=== PATIENT | female | born 1940 | race Caucasian/White ===

== ENCOUNTER 2016-08-03 02:00 | Inpatient (IN) | payer MEDICARE, OTHER ==
[~2016-08-03] VITALS: Ht 160 cm; Wt 90.4 kg
[2016-08-03] VITALS (38 sets, daily range): BP systolic 81–107; BP diastolic 41–60; PULSE 78–118; RESP 17–31; TEMP 97.9; Ht 160 cm; Wt 90.4 kg
[2016-08-03] MEDS ORDERED: ETOMIDATE 20 MG INJ IV STA (02:19)
[2016-08-03] MEDS ORDERED: SUCCINYLCHOLINE CHLORIDE 100 MG/5 ML SYG IV STA (02:19)
--- NOTE | 2016-08-03 02:23 | RADRPT ---
PROCEDURE: CT brain without contrast. CLINICAL INDICATION: Stroke. TECHNIQUE: CT scan of the brain was performed on a multi-detector high-resolution CT scanner. Co ntiguous axial images were obtained from the skull base to the vertex without intravenous contrast. Coronal and sagittal reformatted images were also obtained. Images were reviewed on the PACS works tation. One or more of the following dose reduction techniques were used: - Automated exposure control. - Adjustment of the mA and/or kV according to patient size. - Use of iterative reconstruction technique. Exam CTD/vol = 40.25 mGy. Total exam DLP = 1399.22 mGy-cm. COMPARISON: None. FINDINGS: The ventricles and cortical sulci are within normal limits for patient's age. There are no areas of abnormal attenuation within the brain parenchyma. There is no mass effect or midline shift. There is no intracranial hemorrhage or abnormal extra-axial collection. There are atherosclerotic calcificat ions within bilateral distal internal carotid arteries. The calvarium is intact. There is no evidence of fracture. Visualized paranasal sinuses and mastoid air cells are clear. IMPRESSION: No acute intracranial abnormality identified. Cerebral atherosclerosis. A call report was made to need the charge nurse (Racheal) at 02:20 a.m. .Scott Osborne MD, Date Time Electronically viewed and signed by .Scott Osborne MD, on 08/03/2016 02:23 .T/
[2016-08-03] MEDS ORDERED: PROPOFOL 100 ML IV ONE (02:30)
[2016-08-03 02:36] LABS: BASOPHIL # 0.1 10^3/ul (0.0-0.1); BASOPHILS % 0.6 % (0.0-2.0); CONDITION 1; EOSINOPHILS # 0.6 10^3/ul (0.0-0.5); EOSINOPHILS % 3.6 % (0.0-7.0); HEMATOCRIT 39.9 % (37.0-47.0); HEMOGLOBIN 12.9 g/dl (12.0-16.0); LH ANALYZER COMMENTS 1; LYMPHOCYTES # 7.2 10^3/ul (0.8-2.9); LYMPHOCYTES % 44.3 % (15.0-51.0); MEAN CORPUSCULAR HEMOGLOBIN 29.9 pg (29.0-33.0); MEAN CORPUSCULAR HGB CONC 32.4 g/dl (32.0-37.0); MEAN CORPUSCULAR VOLUME 92.4 fl (82.0-101.0); MEAN PLATELET VOLUME 11.9 fl (7.4-10.4); MONOCYTE # 0.9 10^3/ul (0.3-0.9); MONOCYTES % 5.4 % (0.0-11.0); NEUTROPHIL # 7.5 10^3/ul (1.6-7.5); NEUTROPHILS % 46.1 % (39.0-77.0); PLATELET COUNT 280 10^3/UL (140-440); RED BLOOD COUNT 4.32 10^6/ul (4.20-5.40); RED CELL DISTRIBUTION WIDTH 15.5 % (11.5-14.5); SUSPECT 1; UNCORRECTED WBC 16.3 10^3/ul (4.8-10.8); WHITE BLOOD COUNT 16.3 10^3/ul (4.8-10.8)
[2016-08-03 02:46] LABS: ALBUMIN 4.3 g/dl (3.3-4.9)
[2016-08-03 02:47] LABS: INR 1.13; POTASSIUM 4.8 mmol/L (3.5-5.1); PROTIME 14.5 Sec (12.2-14.2); PT RATIO 1.1
[2016-08-03 02:48] LABS: PARTIAL THROMBOPLASTIN TIME 29.1 Sec (25.0-35.0)
--- NOTE | 2016-08-03 02:48 | RADRPT ---
PROCEDURE: XR Chest. CLINICAL INDICATION: Possible Stroke TECHNIQUE: Single frontal chest x-ray. COMPARISON: None available. FINDINGS: The tip of the endotracheal tube is approximately 1.4 cm above the delvis. There is enlargement of the cardiac silhouette. Diffuse bilateral increased lung densities are seen most suggestive of pul monary edema with interstitial lung densities seen throughout the right lung and in the left lower l teresa with air space lung densities throughout the lungs greatest in the left upper lobe, right upper and lower lung. Degenerative changes in thoracic spine and shoulders. ECG lead projected over the c hest. Calcification in the aortic arch. IMPRESSION: Tip of endotracheal tube approximate 1.4 cm above the delvis. Findings consistent with congestive h eart failure and pulmonary edema as noted above. Please see above. RPTAT: HJES .Osmany Roque MD, MD Date Time Electronically viewed and signed by .Osmany Rqoue MD, MD on 08/03/2016 02:47 .S/
[2016-08-03 02:49] LABS: ALBUMIN/GLOBULIN RATIO 1.02; BILIRUBIN,INDIRECT 0.3 mg/dl (0-1.1); BILIRUBIN,TOTAL 0.3 mg/dl (0.2-1.3); CREATININE 1.89 mg/dl (0.44-1.00); TOTAL PROTEIN 8.5 g/dl (6.1-8.1)
[2016-08-03 02:50] LABS: CALCIUM 10.1 mg/dl (8.4-10.2)
[2016-08-03 03:01] LABS: TROPONIN-I 0.128 ng/ml (0.00-0.12)
--- NOTE | 2016-08-03 03:41 | ERA ---
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 Last known well time is unknown exactly but was around 9 PM. Upon arrival patient is alert but not oriented. She does respond to verbal stimuli. Moving all 4 extremities non-focally. Code stroke was called given the fact the patient was found down. However was later canceled. Patient was sent to CAT scan and came back patient was found to be more progressed when he is short of breath of breath with low lessening O2 saturation. Decision was made to intubate patient. ROS All systems reviewed and are negative except as per history of present illness. Allergies Allergies: Coded Allergies: No Known Drug Allergies (Verified Allergy, Unknown, 08/03/16) Physical Exam Vitals Vital Signs Date Time Temp Pulse Resp B/P Pulse Ox O2 Delivery O2 Flow Rate FiO2 08/03/16 03:23 61 16 97/55 95 Mechanical Ventilator 08/03/16 02:39 72 16 152/82 99 Mechanical Ventilator 08/03/16 02:07 96.8 111 22 185/87 96 Physical Exam Const: [] Head: Atraumatic Eyes: Normal Conjunctiva ENT: Normal External Ears, Nose and Mouth. Neck: Full range of motion..~ No meningismus. Resp: Clear to auscultation bilaterally Cardio: Regular rate and rhythm, no murmurs Abd: Soft, non tender, non distended. Normal bowel sounds Skin: No petechiae or rashes Back: No midline or flank tenderness Ext: No cyanosis, or edema Neur: Awake and alert Psych: Normal Mood and Affect Result Diagram: 08/03/1622208/03/163 Results 24 hrs Laboratory Tests Test 08/03/16 02:07 08/03/16 02:23 Bedside Glucose 135mg/dL Activated Partial Thromboplast Time 29.1Sec Alanine Aminotransferase (ALT/SGPT) 29IU/L Albumin 4.3g/dl Albumin/Globulin Ratio 1.02 Alkaline Phosphatase 102IU/L Anion Gap 23 Aspartate Amino Transf (AST/SGOT) 27IU/L B-Type Natriuretic Peptide 8550PG/ML Basophils # 0.110^3/ul Basophils % 0.6% Blood Morphology Comment Blood Urea Nitrogen 49mg/dl Calcium Level 10.1mg/dl Carbon Dioxide Level 16mmol/L Chloride Level 110mmol/L Creatinine 1.89mg/dl Direct Bilirubin 0.00mg/dl Eosinophils # 0.610^3/ul Eosinophils % 3.6% Globulin 4.20g/dl Glucose Level 205mg/dl Hematocrit 39.9% Hemoglobin 12.9g/dl Hemoglobin A1c 6.5% INR International Normalized Ratio 1.13 Indirect Bilirubin 0.3mg/dl Lymphocytes # 7.210^3/ul Lymphocytes % 44.3% Mean Corpuscular Hemoglobin 29.9pg Mean Corpuscular Hemoglobin Concent 32.4g/dl Mean Corpuscular Volume 92.4fl Mean Platelet Volume 11.9fl Monocytes # 0.910^3/ul Monocytes % 5.4% Neutrophils # 7.510^3/ul Neutrophils % 46.1% Nucleated Red Blood Cells # 0.010^3/ul Nucleated Red Blood Cells % 0.0/100WBC Platelet Count 47663^3/UL Potassium Level 4.8mmol/L Prothrombin Time 14.5Sec Prothrombin Time Ratio 1.1 Red Blood Count 4.3210^6/ul Red Cell Distribution Width 15.5% Sodium Level 144mmol/L Total Bilirubin 0.3mg/dl Total Protein 8.5g/dl Troponin I 0.128ng/ml White Blood Count 16.310^3/ul Current Medications Medications (Trade) Dose Ordered Sig/Bam Route PRN Reason Start Time Stop Time Status Last Admin Dose Admin Succinylcholine Chloride (Anectine Syringe) 100 mg ONCE STAT IV 08/03/16 02:19 08/03/16 02:20 DC Etomidate 20 mg 20 mg ONCE STAT IV 08/03/16 02:19 08/03/16 02:20 DC Propofol (Diprivan) 100 ml @ 0 mls/hr TITRATE ONCE IV 08/03/16 02:30 08/03/16 02:31 DC 08/03/16 02:55 Procedures/MDM EKG: Rate/Rhythm: Sinus tachycardia QRS, ST, T-waves: [No changes consistent w/ acute ischemia] Impression: [No evidence of ischemia or arrhythmia] Chest X-ray 1V Interpreted by me: Soft Tissue: No acute abnormalities Bones: No acute abnormalities Mediastinum/Cardiac Silhouette/Lungs: ET tube in good position. Increased interstitial fluid markings. Impression: Pulmonary edema CT of the head was read as negative Endotracheal Intubation by me: Pre assessment performed. See preceding note for details. Pre-oxygenation performed with 100% oxygen RSI: Performed w/o complication or hypoxic events. Medications as ordered. Blade: [Mac 4] ET Tube: 7.5 cm Depth: 22 cm at the lip Intubation confirmed by colorimetric CO2, equal breath sounds, quiet over the stomach. Chest X-ray 1V Interpreted by me: 1.5 cm above the delvis ET tube. Normal soft tissue, No pneumothorax. Patient's heart failure symptoms is concerning for acute decompensation and will require inpatient workup and monitoring. Further w/u for ischemia, arrhythmia, PE or dissection will be deferred to the inpatient team. Patient will be admitted to to the intensive care given that she is intubated. She has been given Lasix for diuresis. Anderson catheter has been placed as well. Accepting Care Team: Current data and ongoing care discussed. Time: 3 AM Primary Provider: Hospitalist Consulting: [WILLIE] Outstanding Data: none Critical Care: Time: 57 minutes Treatments/Evaluations: Close monitoring and treatment of unstable vital signs, cardiorespiratory, and neurologic status, while maintaining tight balance of fluid, respiratory, and cardiac interventions. Departure Diagnosis: Primary Impression: Altered level of consciousness Additional Impressions: Altered mental status Qualified Code: R41.82 - Altered mental status, unspecified altered mental status type Pulmonary edema Qualified Code: J81.0 - Acute pulmonary edema Non-STEMI (non-ST elevated myocardial infarction) Respiratory failure Qualified Code: J96.01 - Acute respiratory failure with hypoxia Condition: Critical JIN WARNER Aug 03, 2016 03:41
[2016-08-03 03:55] LABS: AADO2 Arterial 598.3 mmHg (7.0-24.0); Allen Test ACCEPTAB; Arterial Base Excess -13.6 mmol/L (-3.0-3); Arterial COHb 0.3 % (0.0-3.0); Arterial Fraction of Oxyhgb 92.8 % (93.0-99.0); Arterial HCO3 12.9 mmol/L (22.0-26.0); Arterial MetHb 0.3 % (0.0-1.5); MODE VENT - AC/VC+
[2016-08-03] MEDS ORDERED: DEXMEDETOMIDINE HCL 200 MCG in SOD CHLORIDE 0.9% 48 ML IV SCH (04:00)
--- NOTE | 2016-08-03 04:28 | HP ---
Date/Time of Note Date/Time of Note DATE: 08/03/16 TIME: 04:20 Assessment/Plan VTE Prophylaxis VTE Prophylaxis Intervention: heparin Lines/Catheters IV Catheter Type (from Nrs): Saline Lock Assessment/Plan Assessment/Plan PROBLEMS: 1. Acute hypoxemic resp failure currently vent dependent 2/2 #2 2. Severe Acute CHF with pulmonary edema * Impending shock, ?cardiogenic 3. NSTEMI 4. ARF r/o underlying CKD 5. Anion gap metabolic acidosis / #4 6. DM 2: uncontrolled 7. SIRS vs Sepsis from probable underlying Pneumonia 8. Acute Encephalopathy R/o CVA 9. HTN: * Patient came in uncontrolled > borderline hypotensive PLAN: ICU admit and supportive care Continue ventilator support and sedation for comfort / Pulm consult Commence diuresis if BP tolerates / may need pressor support Empirically start heparin drip / complete ACS r/ o / 2D echo / Cardiology consult SSI with novolog for now, may transition to insulin drip if tighter control is needed Begin empiric broad spectrum abx for now / barger culture / adjust abx based on cultures and clinical course Patient will need MRI brain to confirm presence or absence of CVA once more clinically stable Close monitoring with serial labs and blood pressure monitoring / intervene as indicated Nephrology consult for renal failure and need for diuresis PROPHYLAXIS: Heparin / Pepcid Prognosis: Guarded CRITICAL CARE TIME: >35 mins of which more than half was spent at the bedside and during counselling HPI/ROS Admit Date/Time Admit Date/Time 08/03/15 Hx of Present Illness PRESENTING COMPLAINT: ALOC HISTORY OF PRESENTING COMPLAINT: 75 yo F last seen well by son at 2100 yesterday who was found down by her son at about 2am. Was brought into the ER as a code stroke but decompensated acutely and had to be intubated and is now sedated. CXR consistent with pulmonary edema. Patient is being admitted to ICU for further mgt. Patient was hypothermic on arrival, but temperature has improved now. No pressor support at this time. Was said to have had slurred speech and L sided flaccidity when she was found. Per son, patient has been having dyspnea on exertion for the last few days and lethargy. No fever however. She can usually ambulate by her self but had been requiring the use of a walker more. ROS Subjective hx not possible: pt critical status PMH/Family/Social Past Medical History * Iron deficiency * Dyslipidemia Medical History: diabetes, hypertension, hypothyroid Family History Significant Family History: other (unknown) Social History Alcohol Use: none Smoking Status: Never smoker Drug Use: none Exam/Review of Systems Vital Signs Vitals VS - Last 72 Hours, by Label Date Time Temp Pulse Resp B/P Pulse Ox O2 Delivery O2 Flow Rate FiO2 08/03/16 03:58 98.1 64 16 104/50 96 Mechanical Ventilator 08/03/16 03:48 76 16 131/118 96 Mechanical Ventilator 08/03/16 03:23 61 16 97/55 95 Mechanical Ventilator 08/03/16 02:39 72 16 152/82 99 Mechanical Ventilator 08/03/16 02:07 96.8 111 22 185/87 96 Vital Signs Date Time Temp Pulse Resp B/P Pulse Ox O2 Delivery O2 Flow Rate FiO2 08/03/16 03:58 98.1 64 16 104/50 96 Mechanical Ventilator Exam Constitutional: other (obes, patient requiring bilateral restraints), No alert, No oriented Psych: other (unable to assess) Eyes: PERRL ENMT: intubated Neck: jvd Respiratory: crackles/rales, other (good air movement with ventilator assistance) Cardiovascular: irregular rhythm, other (very distant heart sounds), No murmurs/extra sounds Gastrointestinal: bowel sounds, soft Extremities: other (movement noted in both upper extremities), No edema Neurological: other (unable to fully assess), No nl mental status, No nl speech Labs Result Diagram: 08/03/1622208/03/163 Medications Medications Current Medications Dexmedetomidine HCl/Sodium Chloride (Precedex/NS) 50 ml @ 0 mls/hr TITRATE IV ; Start 08/03/16 at 04:00 Procedures Procedures Laboratory Tests Test 08/03/16 02:07 08/03/16 02:23 08/03/16 03:04 Bedside Glucose 135mg/dL Activated Partial Thromboplast Time 29.1Sec Alanine Aminotransferase (ALT/SGPT) 29IU/L Albumin 4.3g/dl Albumin/Globulin Ratio 1.02 Alkaline Phosphatase 102IU/L Anion Gap 23 Aspartate Amino Transf (AST/SGOT) 27IU/L B-Type Natriuretic Peptide 8550PG/ML Basophils # 0.110^3/ul Basophils % 0.6% Blood Morphology Comment Blood Urea Nitrogen 49mg/dl Calcium Level 10.1mg/dl Carbon Dioxide Level 16mmol/L Chloride Level 110mmol/L Creatinine 1.89mg/dl Direct Bilirubin 0.00mg/dl Eosinophils # 0.610^3/ul Eosinophils % 3.6% Globulin 4.20g/dl Glucose Level 205mg/dl Hematocrit 39.9% Hemoglobin 12.9g/dl Hemoglobin A1c 6.5% INR International Normalized Ratio 1.13 Indirect Bilirubin 0.3mg/dl Lymphocytes # 7.210^3/ul Lymphocytes % 44.3% Mean Corpuscular Hemoglobin 29.9pg Mean Corpuscular Hemoglobin Concent 32.4g/dl Mean Corpuscular Volume 92.4fl Mean Platelet Volume 11.9fl Monocytes # 0.910^3/ul Monocytes % 5.4% Neutrophils # 7.510^3/ul Neutrophils % 46.1% Nucleated Red Blood Cells # 0.010^3/ul Nucleated Red Blood Cells % 0.0/100WBC Platelet Count 07310^3/UL Potassium Level 4.8mmol/L Prothrombin Time 14.5Sec Prothrombin Time Ratio 1.1 Red Blood Count 4.3210^6/ul Red Cell Distribution Width 15.5% Sodium Level 144mmol/L Total Bilirubin 0.3mg/dl Total Protein 8.5g/dl Troponin I 0.128ng/ml White Blood Count 16.310^3/ul Arterial Blood HCO3 12.9mmol/L Arterial Blood Base Excess -13.6mmol/L Arterial Blood Oxygen Saturation 93.4mmHG Morteza Test ACCEPTAB Arterial Blood Gas Puncture Site Left Radial Arterial Blood Carboxyhemoglobin 0.3% Arterial Blood Date Drawn 08/03/2016 3:40:45 AM Arterial Blood Methemoglobin 0.3% Arterial Blood pCO2 (Temp correct) 32.1mmhg Arterial Blood pH (Temp corrected) 7.222 Arterial Blood pO2 (Temp corrected) 82.6mmHG Blood Gas A-a O2 Differential 598.3mmHg Blood Gas Actual Respiration Rate 35 Blood Gas Critical Value Read Back Judith WARNER MD Blood Gas Inspiratory Pressure 21.0 Blood Gas Inspiratory Time 0.7 Blood Gas Low PEEP Setting 5.0cmH2O Blood Gas Modality VENT - AC/VC+ Blood Gas Notified Time 08/03/2016 3:54:59 AM Blood Gas Notified Whom AA Blood Gas Respiration Rate 14.0 Blood Gas Specimen Source Blood arterial Blood Gas Temperature 37.0C Blood Gas Tidal Volume 500.0mL FiO2 100.0% Oxyhemoglobin Percent 92.8% Total Hemoglobin 12.0g/dl ER INTERVENTIONS Medications (Trade) Dose Ordered Sig/Bam Route PRN Reason Start Time Stop Time Status Last Admin Dose Admin Succinylcholine Chloride (Anectine Syringe) 100 mg ONCE STAT IV 08/03/16 02:19 08/03/16 02:20 DC Etomidate 20 mg 20 mg ONCE STAT IV 08/03/16 02:19 08/03/16 02:20 DC Propofol 100 ml @ 0 mls/hr TITRATE ONCE IV 08/03/16 02:30 08/03/16 02:31 DC 08/03/16 02:55 2.73 MLS/HR Dexmedetomidine HCl/Sodium Chloride (Precedex/NS) 50 ml @ 0 mls/hr TITRATE IV 08/03/16 04:00 PROCEDURE: CT brain without contrast. CLINICAL INDICATION: Stroke. TECHNIQUE: CT scan of the brain was performed on a multi-detector high- resolution CT scanner. Contiguous axial images were obtained from the skull base to the vertex without intravenous contrast. Coronal and sagittal reformatted images were also obtained. Images were reviewed on the PACS workstation. One or more of the following dose reduction techniques were used: - Automated exposure control. - Adjustment of the mA and/or kV according to patient size. - Use of iterative reconstruction technique. Exam CTD/vol = 40.25 mGy. Total exam DLP = 1399.22 mGy-cm. COMPARISON: None. FINDINGS: The ventricles and cortical sulci are within normal limits for patient's age. There are no areas of abnormal attenuation within the brain parenchyma. There is no mass effect or midline shift. There is no intracranial hemorrhage or abnormal extra-axial collection. There are atherosclerotic calcifications within bilateral distal internal carotid arteries. The calvarium is intact. There is no evidence of fracture. Visualized paranasal sinuses and mastoid air cells are clear. IMPRESSION: No acute intracranial abnormality identified. Cerebral atherosclerosis. A call report was made to need the charge nurse (Racheal) at 02:20 a.m. .Scott Osborne MD, Date Time Electronically viewed and signed by .Scott Osborne MD, MD on 08/03/2016 02:23 .T/ CC: JIN WARNER PROCEDURE: XR Chest. CLINICAL INDICATION: Possible Stroke TECHNIQUE: Single frontal chest x-ray. COMPARISON: None available. FINDINGS: The tip of the endotracheal tube is approximately 1.4 cm above the delvis. There is enlargement of the cardiac silhouette. Diffuse bilateral increased lung densities are seen most suggestive of pulmonary edema with interstitial lung densities seen throughout the right lung and in the left lower lung with air space lung densities throughout the lungs greatest in the left upper lobe, right upper and lower lung. Degenerative changes in thoracic spine and shoulders. ECG lead projected over the chest. Calcification in the aortic arch. IMPRESSION: Tip of endotracheal tube approximate 1.4 cm above the delvis. Findings consistent with congestive heart failure and pulmonary edema as noted above. Please see above. RPTAT: HJES .Osmany Roque MD, MD Date Time Electronically viewed and signed by .Osmany Roque MD, MD on 08/03/2016 02:47 I reviewed EKG Rate: Within normal limits Rhythm: sinus Note: No ST elevation or depressions noted concerning for acute ischemic event. AVIS MENDEZ Aug 03, 2016 04:28
[2016-08-03] MEDS ORDERED: HEPARIN 25000 UNITS/250 ML 250 ML IV SCH (04:30)
[2016-08-03] MEDS ORDERED: HEPARIN 1000 UNITS/ML 10 ML INJ IV ONE (04:30)
[2016-08-03] MEDS ORDERED: HEPARIN 1000 UNITS/ML 10 ML INJ IV PRN (04:30)
[2016-08-03] MEDS ORDERED: ASPIRIN 300 MG SUPP PR ONE (04:30)
[2016-08-03] MEDS ORDERED: SOD CHLORIDE 0.9% 1,000 ML IV SCH (04:30)
[2016-08-03] MEDS ORDERED: MIDAZOLAM (DRIP) 50 mg/50 mL 50 ML IV STA ×2 (05:37→06:40)
[2016-08-03] MEDS ORDERED: FUROSEMIDE 40 MG INJ IV SCH ×2 (06:00→18:00)
[2016-08-03] MEDS: PIPER-TAZO 2.25 GM (PMX) 50 ML IVPB SCH ×3 (06:24→21:39)
[2016-08-03] MEDS ORDERED: SOD CHLORIDE 0.9% 500 ML IV ONE (06:30)
[2016-08-03] MEDS: PROPOFOL 100 ML IV SCH ×2 (06:48→19:30)
[2016-08-03] MEDS: DOPamine-D5W 1.6 MG/ML 250 ML IV SCH ×2 (07:09→22:14)
[2016-08-03] MEDS ORDERED: CELE200C PO (07:17)
[2016-08-03] MEDS ORDERED: OLME1TAB5 PO (07:18)
[2016-08-03] MEDS ORDERED: GLIM4TAB PO (07:18)
[2016-08-03] MEDS ORDERED: METO50TA16 PO (07:22)
[2016-08-03] MEDS ORDERED: FERR325C PO (07:22)
[2016-08-03] MEDS ORDERED: ASPI-664 PO (07:23)
[2016-08-03] MEDS ORDERED: LEVO50TA74 PO (07:23)
[2016-08-03] MEDS ORDERED: ESOM40CA PO (07:24)
[2016-08-03] MEDS: INSULIN ASPART [NOVOLOG] 3 ML PEN SC SCH ×5 (07:46→21:00)
[2016-08-03] MEDS ORDERED: FAMOTIDINE 20 MG INJ IV SCH (09:00)
[2016-08-03 09:55] LABS: POTASSIUM 5.1 mmol/L (3.5-5.1)
[2016-08-03 09:58] LABS: CREATININE 1.75 mg/dl (0.44-1.00)
[2016-08-03 09:59] LABS: CALCIUM 8.9 mg/dl (8.4-10.2); MAGNESIUM 1.5 mg/dl (1.7-2.5)
[2016-08-03] MEDS: FAMOTIDINE 20 MG INJ IV SCH (10:07)
[2016-08-03] MEDS: ASPIRIN 81 MG TAB NGT SCH (10:07)
[2016-08-03 10:22] LABS: CK-MB 2.61 ng/ml (0.0-2.4)
[2016-08-03 10:34] LABS: TROPONIN-I 0.201 ng/ml (0.00-0.12)
[2016-08-03] MEDS: FENTAnyl (DRIP) 1000 mcg/100mL 100 ML IV SCH (10:35)
[2016-08-03 11:49] LABS: AADO2 Arterial 603.2 mmHg (7.0-24.0); Allen Test ACCEPTAB; Arterial Base Excess -11.7 mmol/L (-3.0-3); Arterial COHb 0.3 % (0.0-3.0); Arterial Fraction of Oxyhgb 94.8 % (93.0-99.0); Arterial HCO3 13.2 mmol/L (22.0-26.0); Arterial MetHb 0.4 % (0.0-1.5); Arterial Total Hemglobin 12.5 g/dl (12.0-18.0); MODE VENT - AC
--- NOTE | 2016-08-03 12:57 | RADRPT ---
PROCEDURE: Retroperitoneal US. CLINICAL INDICATION: Renal insufficiency TECHNIQUE: Multiple sonographic images of the kidneys and retroperitoneum were obtained. The imag es were reviewed on a PACS workstation. COMPARISON: No prior studies are available for comparison. FINDINGS: The kidneys are normal in size, contour, cortical echogenicity. The right kidney measures 10.3 cm. The left kidney measures 12.5 cm. There is cortical thinning of the right kidney. There are multiple simple cysts in the left kidney, measuring up to 3.4 cm. No kidney stones are visualized. There is no evidence for hydronephrosis. The urinary bladder is not seen. RPTAT: AA IMPRESSION: Left kidney simple cysts. No evidence of hydronephrosis. .Nico Sanchez MD, Date Time Electronically viewed and signed by .Nico Sanchez MD, MD on 08/03/2016 12:57 .S/
[2016-08-03 13:21] LABS: ADD UMIC YES; URINE BILIRUBIN (Dip) NEGATIVE (NEGATIVE); URINE BLOOD (Dip) 1+ (NEGATIVE); URINE COLOR LT. YELLOW (YELLOW); URINE GLUCOSE (Dip) NEGATIVE (NEGATIVE); URINE KETONES (Dip) NEGATIVE (NEGATIVE); URINE LEUKOCYTE ESTERASE (Dip) TRACE (NEGATIVE); URINE NITRITE (Dip) NEGATIVE (NEGATIVE); URINE TOTAL PROTEIN (Dip) NEGATIVE (NEGATIVE); URINE UROBILINOGEN (Dip) 0.2 E.U./dL (0.1-1.0)
[2016-08-03] MEDS ORDERED: LIDOCAINE 1% (MDV) 20 ML INJ SC ONE (13:30)
[2016-08-03 13:35] LABS: POTASSIUM 4.5 mmol/L (3.5-5.1)
[2016-08-03 13:37] LABS: CREATININE 1.77 mg/dl (0.44-1.00)
[2016-08-03 13:39] LABS: CALCIUM 9.2 mg/dl (8.4-10.2)
[2016-08-03 13:47] LABS: CK-MB 3.34 ng/ml (0.0-2.4)
[2016-08-03 13:52] LABS: SQUAMOUS EPITHELIAL CELL,UR OCCASIONAL; URINE RBCS 0-2 /HPF (0)
--- NOTE | 2016-08-03 13:52 | CONS ---
DATE OF ADMISSION: 08/03/2016 DATE OF CONSULTATION: 08/03/2016 TYPE OF CONSULTATION: Pulmonary. REASON FOR CONSULTATION: Respiratory failure. Thank you, Dr. Canales, for this consultation. HISTORY OF PRESENT ILLNESS: This is a 75-year-old lady with a history of congestive heart failure, was found unresponsive by family members this morning, brought to the emergency room for a possible CVA. Here she became unresponsive and required emergent intubation and mechanical ventilation. Sinc e that time, she has remained intubated and sedated on sedation and ventilation as stated. Per her s on, she was found to have left upper extremity flaccidity and slurred speech. Since admission she mccauley s marked metabolic acidosis with renal failure in addition to significant pulmonary edema on chest x -ray. PAST MEDICAL HISTORY: Hypertension, hyperlipidemia, diabetes. MEDICATIONS: Per chart. ALLERGIES: NONE. SOCIAL HISTORY: She is a nonsmoker, no alcohol, no history of drug use. FAMILY HISTORY: Noncontributory. SYSTEMS REVIEW: A 12-point review of systems currently unable to perform. PHYSICAL EXAMINATION: GENERAL: Well-nourished, well-developed lady, intubated on mechanical ventilation. VITAL SIGNS: Currently afebrile, pulse is 100, blood pressure 100/65, O2 saturation 96% on FIO2 of 100%. NECK: Supple. HEENT: Dry mucous membranes. Pupils equal and reactive to light. CARDIAC: S1, S2, tachycardia. CHEST: Diminished air entry bilaterally. ABDOMEN: Soft, nontender. No guarding or rebound. EXTREMITIES: No cyanosis, clubbing, edema. NEUROLOGIC: Unable to assess. LABORATORY DATA: White count 16.3, hemoglobin 12.9, platelets of 280. BUN 50, creatinine 1.75. Mag was 1.5. Troponin 0.2. ABG: pH 7.22, pCO2 of 32, PaO2 of 82, bicarbonate was 13. INR 1.3. DIAGNOSTIC DATA: Chest x-ray shows significant dense bilateral interstitial infiltrates consistent with either ARDS or pulmonary edema. Brain CT shows no acute abnormalities. IMPRESSION AND PLAN: 1. Acute hypoxemic respiratory failure. Possibility of aspiration component. Differential does in clude viral pneumonia such as influenza and/or community-acquired pneumonia. Also evidence of pulmon izzy edema radiographically. 2. Acute renal failure with metabolic acidosis. The patient will need correction of metabolic acid osis to aid ventilation and hopefully improve urine output. 3. Elevated troponin with evidence of ischemia. Will require echocardiogram, cardiology consultati on. 4. Possible acute cerebrovascular accident with slurred speech and hemiplegia. The patient for MRI when more stable. 5. Continue with DVT and GI prophylaxis. Overall prognosis is guarded. Dictated By: HECTOR MEZA/SUHAIL Conf#: [id number] DID#: [id number]
[2016-08-03 13:55] LABS: TROPONIN-I 0.269 ng/ml (0.00-0.12)
[2016-08-03 13:59] LABS: BARBITURATES NEGATIVE (NEGATIVE); BENZODIAZEPINES POSITIVE (NEGATIVE); CANNABINOIDS NEGATIVE (NEGATIVE); COCAINE NEGATIVE (NEGATIVE); OPIATES NEGATIVE (NEGATIVE)
--- NOTE | 2016-08-03 14:19 | CONS ---
DATE OF ADMISSION: 08/03/2016 DATE OF CONSULTATION: 08/03/2016 REFERRING PHYSICIAN: Avis Mendez MD REASON FOR CONSULTATION: Acute kidney injury. HISTORY OF PRESENT ILLNESS: This is a 75-year-old female last seen by her son at 9:00 p.m. joseph high, was found down by her son at 2:00 a.m.. The patient was brought into the ER as a code stroke but was decompensated acutely and intubated for acute hypoxic respiratory failure, currently intubated on a ventilator. She also had acute CHF with pulmonary edema. The patient is noted to have acute k idney injury with a creatinine of 1.75. She had an initial workup done in the emergency room includ ing a CT brain negative with a chest x-ray showing pulmonary edema and congestive heart failure. At the time of my evaluation, no family member is available at bedside. I reviewed the charts, and the patient is currently on Lasix 40 mg IV daily for her CHF exacerbation. She had a creatinine of 1.7, no other previous creatinine is available, but there is a possibility of previous chronic kidn ey disease. REVIEW OF SYSTEMS: Unable to obtain from the patient since is currently intubated and sedated on a ventilator. PAST MEDICAL HISTORY: Notable for hypertension, diabetes mellitus, hypothyroidism, possible history of congestive heart failure. PAST SURGICAL HISTORY: None. FAMILY HISTORY: None. SOCIAL HISTORY: The patient denies any alcohol as per the nursing charting. Never smoked. No hist ory of any drug use. PHYSICAL EXAMINATION: VITAL SIGNS: Temperature 97.9, heart rate 82, respirations 16, blood pressure 114/45, saturation 96 % on mechanical ventilator. GENERAL: The patient is currently sedated, intubated on ventilator. HEENT: ET tube in place. NECK: Supple. LUNGS: Bilateral coarse breath sounds. No wheezing. HEART: S1, S2, with regular rhythm, no murmur. ABDOMEN: Soft, nontender, nondistended. Bowel sounds are present. EXTREMITIES: No clubbing, cyanosis, or edema. NEUROLOGICAL: Nonfocal, intact. PSYCHIATRIC: Appropriate affect and mood. LABORATORY DATA/DIAGNOSTIC IMAGING: Sodium 144, potassium 5.1, chloride 103, BUN 50, creatinine 1. 7, glucose is 144, calcium is 8.9, magnesium 1.5. Troponin 0.201. BNP 8550. Chest x-ray consistent with pulmonary edema. CT head without contrast, no acute findings, no acute intracranial abnormality, ____cerebral atherosclerosis. IMPRESSION: This is a 75-year-old female with: 1. Acute kidney injury versus acute kidney injury on chronic kidney disease secondary to cardiorena l syndrome. 2. Acute congestive heart failure exacerbation with pulmonary edema. 3. Hypomagnesemia. 4. Metabolic acidosis with a bicarbonate of 12. On chemistry, her blood gas shows a pH of 7.29. 5. History of hypertension. 6. History of diabetes mellitus. 7. History of hypothyroidism. 8. Acute hypoxemic respiratory failure, currently intubated secondary to acute pulmonary edema. 9. Non-ST elevation myocardial infarction. 10. Severe acute CHF with pulmonary edema. 11. Anion gap metabolic acidosis secondary to acute renal failure. 12. Systemic inflammatory response syndrome versus sepsis from probable underlying pneumonia. 13. Acute encephalopathy, multifactorial. PLAN: 1. Thank you, Dr. Mendez, for this consultation. I will order the patient's urine studies including a urine sodium, urine protein, urine creatinine and urine eosinophils. 2. CK total and uric acid has been ordered for a.m. labs. 3. Renal ultrasound to assess the kidney size and to rule out hydronephrosis. 4. I will change her Lasix to 40 mg IV b.i.d. 5. I will order the patient's BMP has a BMP stat to follow up on her bicarbonate labels and further plan will be decided about a bicarbonate drip if she needs depending on her bicarbonate in blood ga s. 6. The patient is currently seen in the emergency room. She is waiting to get admitted to the ICU. Pulmonary has already been consulted in the case and further plan will be decided by the patient's followup labs. 7. Lasix 40 mg IV b.i.d. has been changed. 8. The patient is currently seen in the emergency room and we will follow this patient along with [facility] pulmonary, cardiology, nephrology and the primary care service. Dictated By: CARYN GALVEZ MD, KP/SUHAIL Conf#: [id number] DID#: [id number] CC: AVIS MENDEZ MD;*EndCC*
--- NOTE | 2016-08-03 16:12 | RADRPT ---
PROCEDURE: XR Chest. CLINICAL INDICATION: PICC line placement TECHNIQUE: Single frontal chest x-ray. COMPARISON: 08/03/2016 FINDINGS: Left-sided PICC line tip is in the SVC. Nasogastric tube tip is in the stomach. Endotracheal tube tip is in mid/distal trachea. There is stable moderate cardiomegaly and moderate to severe pulmonar y vascular congestion/edema. Hazy bibasilar pulmonary opacities likely reflect atelectasis and/or m oderate pleural effusions. No pneumothorax is identified. The osseous structures are unremarkable. IMPRESSION: 1. Left-sided PICC line, endotracheal tube, nasogastric tube in good position. 2. Stable moderate cardiomegaly and moderate to severe pulmonary vascular congestion/edema. 3. Stable bibasilar atelectasis and/or moderate pleural effusions. RPTAT: QQ .Luis Eduardo Saldivar MD, MD Date Time Electronically viewed and signed by .Luis Eduardo Saldivar MD, on 08/03/2016 16:12 .R/
--- NOTE | 2016-08-03 16:12 | RADRPT ---
PROCEDURE: US guidance for PICC line CLINICAL INDICATION: PICC line placement TECHNIQUE: Multiple real-time images were acquired of the patient's arm utilizing a high resolutio n transducer. This was performed by the PICC line nurse for venous access. COMPARISON: None FINDINGS: Ultrasound guidance for PICC line placement. IMPRESSION: Ultrasound guidance for PICC line placement. RPTAT: AA .Nico Sanchez MD, MD Date Time Electronically viewed and signed by .Nico Sanchez MD, on 08/03/2016 16:12 .S/
[2016-08-03] MEDS ORDERED: MAGNESIUM SULFATE 3 GM in SOD CHLORIDE 0.9% 100 ML IVPB ONE (16:30)
[2016-08-03] MEDS ORDERED: SOD CHLORIDE 0.9% 100 ML ONE (18:40)
--- NOTE | 2016-08-03 19:18 | CONS ---
Date/Time of Note Date/Time of Note DATE: 08/03/16 TIME: 19:11 Assessment/Plan Assessment/Plan Additional Assessment/Plan Left-sided weakness concerning for CVA Respiratory failure Acute decompensated congestive heart failure History of hypertension Diabetes Mildly elevated troponin Acute kidney injury -Patient has been started on IV Lasix as per our nephrology colleagues. We'll continue as blood pressure permits. Continue telemetry monitoring to rule out any significant arrhythmias. Echocardiogram has been ordered. Troponins are mildly elevated and has remained static. ECG without any significant ischemic abnormalities. Would continue aspirin, start statin therapy. We'll likely need further neurologic studies given acute left-sided weakness as per family. Consultation Date/Type/Reason Admit Date/Time 08/03/15 Type of Consultation: cv Reason for Consultation Shortness of breath Hx of Present Illness This is a 75-year-old female presented secondary to shortness of breath and left -sided weakness as per the family. Patient's son who lives with patient found the patient on the floor at approximately 1 in the morning. Patient with slurred speech and unable to move the left side. EMS was called and patient brought to the emergency room. Patient at that time with worsening response and respiratory failure requiring intubation. Chest x-ray with evidence of pulmonary edema and for this reason cardio to consultation was requested. As per the family, patient with no significant cardiac past medical history. She did have a stress test approximately one year ago prior to cataract surgery and they were told there was some mild abnormalities but was able to proceed with her surgery. She is able to ambulate prior to this that chest pain but does at times get short of breath with walking up hills. 12 point review of systems performed with information obtained from the patient' s family at bedside with all pertinent positives and negatives mentioned above and all else is negative Psychological: other (unable to assess) Past Medical History Medical History: diabetes, hypertension, hypothyroid Past Surgical History Cataract surgery Family History Significant Family History: no pertinent family hx Social History Alcohol Use: none Smoking Status: Never smoker Drug Use: none Other Social History Lives at home with the son Exam/Review of Systems Vital Signs Vitals Vital Signs Date Time Temp Pulse Resp B/P Pulse Ox O2 Delivery O2 Flow Rate FiO2 08/03/16 17:42 82 28 97 80 08/03/16 17:00 95/44 Mechanical Ventilator 08/03/16 16:00 100.0 Exam Sedated and intubated, no apparent distress, multiple family members at bedside Head: normocephalic ENMT: intubated Respiratory: other (course breath sounds bilaterally with scattered crackles, no wheezing) Cardiovascular: regular rate and rhythm (S1 and S2 heard), systolic murmur Gastrointestinal: bowel sounds, non-tender, soft Extremities: edema Results Result Diagram: 08/03/16 0223 08/03/16 1305 Results 24 hrs Laboratory Tests Test 08/03/16 02:07 08/03/16 02:23 08/03/16 03:04 08/03/16 07:31 Bedside Glucose 135 178 Activated Partial Thromboplast Time 29.1 Alanine Aminotransferase (ALT/SGPT) 29 Albumin 4.3 Albumin/Globulin Ratio 1.02 Alkaline Phosphatase 102 Anion Gap 23 H Aspartate Amino Transf (AST/SGOT) 27 B-Type Natriuretic Peptide 8550 H Basophils # 0.1 Basophils % 0.6 Blood Morphology Comment Blood Urea Nitrogen 49 H Calcium Level 10.1 Carbon Dioxide Level 16 L Chloride Level 110 Creatinine 1.89 H Direct Bilirubin 0.00 Eosinophils # 0.6 H Eosinophils % 3.6 Globulin 4.20 H Glucose Level 205 Hematocrit 39.9 Hemoglobin 12.9 Hemoglobin A1c 6.5 H INR International Normalized Ratio 1.13 Indirect Bilirubin 0.3 Lymphocytes # 7.2 H Lymphocytes % 44.3 Mean Corpuscular Hemoglobin 29.9 Mean Corpuscular Hemoglobin Concent 32.4 Mean Corpuscular Volume 92.4 Mean Platelet Volume 11.9 H Monocytes # 0.9 Monocytes % 5.4 Neutrophils # 7.5 Neutrophils % 46.1 Nucleated Red Blood Cells # 0.0 Nucleated Red Blood Cells % 0.0 Platelet Count 280 Potassium Level 4.8 Prothrombin Time 14.5 H Prothrombin Time Ratio 1.1 Red Blood Count 4.32 Red Cell Distribution Width 15.5 H Sodium Level 144 Total Bilirubin 0.3 Total Protein 8.5 H Troponin I 0.128 *H White Blood Count 16.3 H Arterial Blood HCO3 12.9 L Arterial Blood Base Excess -13.6 L Arterial Blood Oxygen Saturation 93.4 L Morteza Test ACCEPTAB Arterial Blood Gas Puncture Site Left Radial Arterial Blood Carboxyhemoglobin 0.3 Arterial Blood Date Drawn 08/03/2016 3:40:45 AM Arterial Blood Methemoglobin 0.3 Arterial Blood pCO2 (Temp correct) 32.1 L Arterial Blood pH (Temp corrected) 7.222 *L Arterial Blood pO2 (Temp corrected) 82.6 Blood Gas A-a O2 Differential 598.3 H Blood Gas Actual Respiration Rate 35 Blood Gas Critical Value Read Back Judith WARNER MD Blood Gas Inspiratory Pressure 21.0 Blood Gas Inspiratory Time 0.7 Blood Gas Low PEEP Setting 5.0 Blood Gas Modality VENT - AC/VC+ Blood Gas Notified Time 08/03/2016 3:54:59 AM Blood Gas Notified Whom AA Blood Gas Respiration Rate 14.0 Blood Gas Specimen Source Blood arterial Blood Gas Temperature 37.0 Blood Gas Tidal Volume 500.0 FiO2 100.0 Oxyhemoglobin Percent 92.8 L Total Hemoglobin 12.0 Test 08/03/16 09:10 08/03/16 11:04 08/03/16 11:30 08/03/16 12:13 Anion Gap 24 H Blood Urea Nitrogen 50 H Calcium Level 8.9 Carbon Dioxide Level 12 L Chloride Level 113 H Creatine Kinase 165 Creatine Kinase Index 1.6 Creatinine 1.75 H Creatinine Kinase MB (Mass) 2.61 H Glucose Level 144 # Magnesium Level 1.5 L Phosphorus Level 4.0 Potassium Level 5.1 Sodium Level 144 Troponin I 0.201 *H Bedside Glucose 94 117 Arterial Blood HCO3 13.2 L Arterial Blood Base Excess -11.7 L Arterial Blood Oxygen Saturation 95.5 Morteza Test ACCEPTAB Arterial Blood Gas Puncture Site Right Radial Arterial Blood Carboxyhemoglobin 0.3 Arterial Blood Date Drawn 08/03/2016 11:30:33 AM Arterial Blood Methemoglobin 0.4 Arterial Blood pCO2 (Temp correct) 27.5 L Arterial Blood pH (Temp corrected) 7.298 *L Arterial Blood pO2 (Temp corrected) 82.3 Blood Gas A-a O2 Differential 603.2 H Blood Gas Actual Respiration Rate 31 Blood Gas Critical Value Read Back DR KENT Blood Gas Low PEEP Setting 5.0 Blood Gas Modality VENT - AC Blood Gas Notified Time 08/03/2016 11:47:09 AM Blood Gas Notified Whom ARSALAND Blood Gas Respiration Rate 14.0 Blood Gas Specimen Source Blood arterial Blood Gas Temperature 37.0 Blood Gas Tidal Volume 500.0 FiO2 100.0 Oxyhemoglobin Percent 94.8 Total Hemoglobin 12.5 Test 08/03/16 12:44 08/03/16 13:05 08/03/16 18:53 Urine Amphetamines Screen NEGATIVE Urine Barbiturates NEGATIVE Urine Benzodiazepines Screen POSITIVE Urine Bilirubin NEGATIVE Urine Cannabinoids NEGATIVE Urine Clarity CLEAR Urine Cocaine Screen NEGATIVE Urine Color LT. YELLOW Urine Eosinophils % 0.0 Urine Glucose NEGATIVE Urine Hemoglobin 1+ H Urine Ketones NEGATIVE Urine Leukocyte Esterase TRACE H Urine Microscopic RBC 0-2 Urine Microscopic WBC 0-2 Urine Nitrite NEGATIVE Urine Opiates Screen NEGATIVE Urine Random Creatinine 16.37 L Urine Random Sodium 138 H Urine Specific [place] 1.015 Urine Squamous Epithelial Cells OCCASIONAL Urine Total Protein Urine Urobilinogen 0.2 E.U./dL Urine pH 5.0 Anion Gap 21 H Blood Urea Nitrogen 50 H Calcium Level 9.2 Carbon Dioxide Level 15 L Chloride Level 113 H Creatine Kinase 251 H Creatine Kinase Index 1.3 Creatinine 1.77 H Creatinine Kinase MB (Mass) 3.34 H Glucose Level 95 # Potassium Level 4.5 Sodium Level 144 Troponin I 0.269 *H Bedside Glucose 94 Medications Medications Current Medications Dexmedetomidine HCl 200 mcg/ Sodium Chloride 50 ml @ 0 mls/hr TITRATE IV Last administered on 08/03/16 04:39; Admin Dose 4.5 MLS/HR; Start 08/03/16 at 04:00 Piperacillin Sod/ Tazobactam Sod 50 ml @ 100 mls/hr Q8 IVPB Last administered on 08/03/16 16:29; Admin Dose 100 MLS/HR; Start 08/03/16 at 06:00 Sodium Chloride 1,000 ml @ 60 mls/hr [id number] IV Last administered on 08/03/16 07:06; Admin Dose 60 MLS/HR; Start 08/03/16 at 04:30 Propofol (Diprivan) 100 ml @ 2.73 mls/hr Q12H IV ; Start 08/03/16 at 04:30 Insulin Aspart (Novolog Insulin Pen) NOVOLOG *MILD* ALGORI... Q4 SC Last administered on 08/03/16 07:46; Admin Dose 1 UNIT; Start 08/03/16 at 05:00 Aspirin (Aspirin) 81 mg DAILY NGT Last administered on 08/03/16 10:07; Admin Dose 81 MG; Start 08/03/16 at 09:00 Famotidine 20 mg 20 mg DAILY IV Last administered on 08/03/16 10:07; Admin Dose 20 MG; Start 08/03/16 at 09:00 Dopamine HCl/ Dextrose 250 ml @ 6.825 mls/ hr TITRATE IV Last administered on 08/03/16 07:09; Admin Dose 6.825 MLS/HR; Start 08/03/16 at 07:00 Fentanyl 100 ml @ 5 mls/hr TITRATE IV Last administered on 08/03/16 10:35; Admin Dose 5 MLS/HR; Start 08/03/16 at 10:00 Magnesium Sulfate/ Sodium Chloride (Magnesium Sulfate/NS) 106 ml @ 35.333 mls/ hr ONCE ONCE IVPB Last administered on 08/03/16 15:18; Admin Dose 35.333 MLS/ HR; Start 08/03/16 at 16:30; Stop 08/03/16 at 19:29 IV Flush (NS 10 ml) 10 ml PRN PRN IV IV PROTOCOL; Start 08/03/16 at 16:30 Procedures Procedures ECG sore in the emergency room with atrial tachycardia and frequent PACs. Telemetry reviewed with sinus rhythm with frequent PACs Miguel Quiroga DO Aug 03, 2016 19:18
[2016-08-03] MEDS ORDERED: SODIUM BICARBONATE (IV ADD) 100 MEQ in DEXTROSE 5% 1,000 ML IV SCH (21:00)
[2016-08-03] MEDS: ATORVASTATIN 80 MG TAB NGT SCH (21:40)
[2016-08-03] MEDS: ACETAMINOPHEN 650MG/20.3ML CUP NGT PRN (22:08)
[2016-08-03] MEDS: MIDAZOLAM (DRIP) 50 mg/50 mL 50 ML IV SCH (22:21)
--- NOTE | 2016-08-03 22:36 | RADRPT ---
Echocardiogram Report Patient Name: TALIB MCADAMS Gender: Female Date: 1940 Study Date: 03-Aug-2016 Crisis Counselor: Hayden Lee RDCS Location: Ref. Physician: AVIS MNEDEZ Quality: Good Procedures: Transthoracic echocardiogram with complete 2D, M-Mode, and doppler examination. Indications: Pulmonary edema. 2D/M Mode Doppler Measurement Value Normal Ranges Measurement Value Normal Ranges LVIDd 2D 5.3 3.5 - 5.6 cm AV Peak Jose 2.0 m/sec LVIDs 2D 4.3 2.1 - 4.1 cm AV Peak PG 15.7 mmHg LVPWd 2D 1.0 0.6 - 1.1 cm LVOT Peak Jose 1.0 m/sec IVSd 2D 0.9 0.6 - 1.1 cm LVOT Peak PG 4.0 mmHg AoR Diam 2D 2.7 2.0 - 3.7 cm MV E Peak Jose 1.2 m/sec EDV 2D 137.8 cm3 MV A Peak Jose 0.5 m/sec ESV 2D 79.0 cm3 MV E/A 2.5 LA Dimen 2D 4.0 2.3 - 4.0 cm MV Decel Time 192 msec MV Decel [place] 6 MV E/A 2.5 TR Peak Jose 2.7 m/sec TR Peak PG 28.2 mmHg RVSP 36.0 mmHg Findings Left Ventricle: Normal left ventricular cavity size. Normal left ventricular wall thickness. Moderate left ventricular systolic dysfunction. Ejection fraction is visually estimated at 35 %. Tissue Doppler/Mitral Doppler indices are consistent with pseudonormalization with mildly elevated left atrial pressure (Stage II diastolic dysfunction). Right Ventricle: Normal right ventricular size. Normal right ventricular systolic function. Left Atrium: Upper limit of normal left atrial size. Right Atrium: The right atrium is normal in size. Mitral Valve: Mitral valve leaflets appear mildly thickened. Mild to moderate mitral valve regurgitation. The regurgitation jet is eccentrically directed which may underestimate the severity of mitral regurgitation. Aortic Valve: Aortic sclerosis without stenosis. Aortic cusps appear mildly calcified. Mild aortic valve regurgitation. Tricuspid Valve: Normal appearance of the tricuspid valve. Estimated peak PA systolic pressure 36 mmHg. There is mild tricuspid regurgitation. Pulmonic Valve: Pulmonic valve not well visualized. No evidence of pulmonic regurgitation. Pericardium: Normal pericardium with no significant pericardial effusion. Aorta: Normal aortic root. IVC: Inferior vena cava without respiratory collapse, however, patient on ventilator. Conclusions Normal left ventricular cavity size. Normal left ventricular wall thickness. Moderate left ventricular systolic dysfunction. Ejection fraction is visually estimated at 35 %. Tissue Doppler/Mitral Doppler indices are consistent with pseudonormalization with mildly elevated left atrial pressure (Stage II diastolic dysfunction). Normal right ventricular size. Normal right ventricular systolic function. Upper limit of normal left atrial size. The right atrium is normal in size. Mild to moderate mitral valve regurgitation. The regurgitation jet is eccentrically directed which may underestimate the severity of mitral regurgitation. Aortic sclerosis without stenosis. Mild aortic valve regurgitation. Estimated peak PA systolic pressure 36 mmHg. There is mild tricuspid regurgitation. Normal pericardium with no significant pericardial effusion. Electronically Signed By: Miguel Quiroga 03-Aug-2016 22:36:15 -0800 Patient Name: TALIB MCADAMS Study Date: 03-Aug-2016 [id number]
[2016-08-03 23:41] LABS: INR 1.4; PROTIME 17.2 Sec (12.2-14.2); PT RATIO 1.3
[2016-08-03 23:42] LABS: PARTIAL THROMBOPLASTIN TIME 34.2 Sec (25.0-35.0)
[2016-08-04] VITALS (104 sets, daily range): BP systolic 66–177; BP diastolic 39–111; PULSE 81–154; RESP 0–48
[2016-08-04] MEDS: INSULIN ASPART [NOVOLOG] 3 ML PEN SC SCH ×6 (01:00→21:26)
[2016-08-04] MEDS: PROPOFOL 100 ML IV SCH (04:30)
[2016-08-04 04:45] LABS: BASOPHILS % 0.1 % (0.0-2.0); HEMATOCRIT 33.5 % (37.0-47.0); HEMOGLOBIN 11.1 g/dl (12.0-16.0); LYMPHOCYTES # 1.3 10^3/ul (0.8-2.9); LYMPHOCYTES % 5.1 % (15.0-51.0); MEAN CORPUSCULAR HGB CONC 33.1 g/dl (32.0-37.0); MEAN CORPUSCULAR VOLUME 90.7 fl (82.0-101.0); MEAN PLATELET VOLUME 11.2 fl (7.4-10.4); MONOCYTE # 0.7 10^3/ul (0.3-0.9); NEUTROPHIL # 22.8 10^3/ul (1.6-7.5); NEUTROPHILS % 91.8 % (39.0-77.0); PLATELET COUNT 199 10^3/UL (140-440); RED CELL DISTRIBUTION WIDTH 15.3 % (11.5-14.5); UNCORRECTED WBC 24.9 10^3/ul (4.8-10.8); WHITE BLOOD COUNT 24.9 10^3/ul (4.8-10.8)
[2016-08-04 05:00] LABS: CONDITION 1; LH ANALYZER COMMENTS 1; SUSPECT 1
[2016-08-04 05:14] LABS: ALBUMIN 3.3 g/dl (3.3-4.9)
[2016-08-04 05:15] LABS: POTASSIUM 4.1 mmol/L (3.5-5.1)
[2016-08-04 05:17] LABS: BILIRUBIN,INDIRECT 0.4 mg/dl (0-1.1); BILIRUBIN,TOTAL 0.4 mg/dl (0.2-1.3); TOTAL PROTEIN 6.4 g/dl (6.1-8.1)
[2016-08-04 05:18] LABS: CREATININE 1.79 mg/dl (0.44-1.00)
[2016-08-04 05:19] LABS: CALCIUM 8.6 mg/dl (8.4-10.2); CHOL/HDL RATIO 2.6 RATIO; URIC ACID 10.2 mg/dl (3.1-7.9)
[2016-08-04 05:48] LABS: THYROID STIMULATING HORMONE 1.41 MIU/L (0.465-4.680)
[2016-08-04] MEDS ORDERED: FUROSEMIDE 20 MG INJ IV SCH (06:00)
[2016-08-04] MEDS: PIPER-TAZO 2.25 GM (PMX) 50 ML IVPB SCH ×3 (06:02→21:17)
--- NOTE | 2016-08-04 06:18 | RADRPT ---
PROCEDURE: XR Chest. CLINICAL INDICATION: Respiratory failure TECHNIQUE: Portable single view of the chest COMPARISON: 08/03 FINDINGS: Endotracheal tube appears slightly close to the delvis, 1.3 cm away, but this may in part be due to more lordotic positioning than on the prior study. Lung volumes are slightly reduced. Infiltrates in the upper lobes appear somewhat decreased. Infiltrates in the mid to lower lung zones may be unch anged. Left PICC line and nasogastric tubes remain in place. Cardiomegaly and aortic calcification again seen. Degenerative change of the spine. IMPRESSION: Endotracheal tube which may be slightly close to the delvis although this may be in part due to lord otic positioning. Decrease in bilateral upper lobe infiltrates. RPTAT: HLBE Physician Carlos Date Time Electronically viewed and signed by Tracy Raya Physician on 08/04/2016 06:18 LE/
[2016-08-04] MEDS ORDERED: NA BICARBONATE 8.4% 50 ML SYG ONE ×2 (07:00→11:59)
[2016-08-04] MEDS ORDERED: AMIODARONE 150 MG INJ ONE (07:00)
[2016-08-04] MEDS ORDERED: DEXTROSE 5% WATER 500 ML BAG ONE (07:00)
[2016-08-04] MEDS ORDERED: MAGNESIUM SULFATE 1 GM/100 ML D5W IVPB ONE (07:00)
[2016-08-04] MEDS ORDERED: EPINEPHrine 0.1 MG/ML SYG ONE (07:00)
[2016-08-04] MEDS ORDERED: CA CHLORIDE 10% 10 ML SYRINGE ONE (07:00)
[2016-08-04] MEDS: FENTAnyl (DRIP) 1000 mcg/100mL 100 ML IV SCH (07:54)
[2016-08-04 08:11] LABS: AADO2 Arterial 180.5 mmHg (7.0-24.0); Allen Test ACCEPTAB; Arterial Base Excess -9.5 mmol/L (-3.0-3); Arterial COHb 0.2 % (0.0-3.0); Arterial Fraction of Oxyhgb 97.9 % (93.0-99.0); Arterial HCO3 15.2 mmol/L (22.0-26.0); Arterial MetHb 0.3 % (0.0-1.5); Arterial Total Hemglobin 12.1 g/dl (12.0-18.0); MODE VENT - AC
[2016-08-04 08:19] LABS: INR 1.58; PT RATIO 1.5
--- NOTE | 2016-08-04 08:46 | PN ---
Date/Time of Note Date/Time of Note DATE: 08/04/16 TIME: 08:34 Assessment/Plan VTE Prophylaxis VTE Prophylaxis Intervention: heparin Lines/Catheters IV Catheter Type (from Nrs): Peripheral IV Urinary Cath still in place: Yes Reason Cath still needed: urinary retention Assessment/Plan Assessment/Plan 1. Acute hypoxemic resp failure currently vent dependent 2/ #2 - continue with weaning as tolerated, Pulm c/s appreciated. 2. Severe Acute CHF with pulmonary edema - improving, continue cardiology recs - lasix prn, EF 35%, stage II diastolic dysfunction * Impending shock, ?cardiogenic 3. NSTEMI - / to cardiac arrest - monitor trend, on heparin 4. Acute renal insufficiency - monitor acute changes, renally adjust medications , as per clinical course. 5. Anion gap metabolic acidosis / #4 - monitor - on bicarb drip - wean as tolerated 6. DM 2: uncontrolled - insulin, [id number] 6.5 7. SIRS vs Sepsis from probable underlying Pneumonia - aspiration - continue with antibiotics, continue with pressor support 8. Acute Encephalopathy R/o CVA - will wait for MRI - once patient is more clinically stable 9. HTN essential - * Patient came in uncontrolled > borderline hypotensive - on dopamine 10. GI ppx - protonix 11. DVT ppx - heparin dispo - f/u recs, monitor acute changes, continue with ABG, labs, as per clinical course - prognosis - guarded this critical care note took greater than 1 hour to complete Subjective 24 Hr Interval Summary Free Text/Dictation Patient admitted for cardiac arrest with ROSC. Patient is doing better today as per nursing. Sedation vacation started. Spoke to the nurse about the care plan. Spoke to both sons, present at bedside, about the care plan. 20 minutes spent. Exam/Review of Systems Vital Signs Vitals Vital Signs Date Time Temp Pulse Resp B/P Pulse Ox O2 Delivery O2 Flow Rate FiO2 08/04/16 08:00 50 08/04/16 06:30 93 16 107/59 100 Mechanical Ventilator 08/04/16 04:00 99.4 Intake and Output 08/03/16 08/03/16 08/04/16 15:00 23:00 07:00 Intake Total 50 ml 620.5 ml 831.5 ml Output Total 1500 ml 980 ml 1050 ml Balance -1450 ml -359.5 ml -218.5 ml Exam Gen Doris: intubated and sedated HEENT: NC/AT, PERRLA, ETT NECK: supple, no thyromegaly THORAX: symmetrical, no obvious deformities CV: S1S2, tachycardiac, III/ systolic murmur Lungs: coarse breath sounds, improved since yesterday, scattered crackles Abd: soft, NT/ND, +BS, no rebound, no guarding, neg HSM EXT: trace bilateral lower extremity edema, no ecchymosis, no clubbing, onychomycosis Neuro: intubated, sedated Psych: cannot assess Skin: decreased turgor Results Result Diagram: 08/04/16 0500 08/04/16 0415 Results 24 hrs Laboratory Tests Test 08/03/16 09:10 08/03/16 11:04 08/03/16 11:30 08/03/16 12:13 Anion Gap 24 H Blood Urea Nitrogen 50 H Calcium Level 8.9 Carbon Dioxide Level 12 L Chloride Level 113 H Creatine Kinase 165 Creatine Kinase Index 1.6 Creatinine 1.75 H Creatinine Kinase MB (Mass) 2.61 H Glucose Level 144 # Magnesium Level 1.5 L Phosphorus Level 4.0 Potassium Level 5.1 Sodium Level 144 Troponin I 0.201 *H Bedside Glucose 94 117 Arterial Blood HCO3 13.2 L Arterial Blood Base Excess -11.7 L Arterial Blood Oxygen Saturation 95.5 Morteza Test ACCEPTAB Arterial Blood Gas Puncture Site Right Radial Arterial Blood Carboxyhemoglobin 0.3 Arterial Blood Date Drawn 08/03/2016 11:30:33 AM Arterial Blood Methemoglobin 0.4 Arterial Blood pCO2 (Temp correct) 27.5 L Arterial Blood pH (Temp corrected) 7.298 *L Arterial Blood pO2 (Temp corrected) 82.3 Blood Gas A-a O2 Differential 603.2 H Blood Gas Actual Respiration Rate 31 Blood Gas Critical Value Read Back DR KENT Blood Gas Low PEEP Setting 5.0 Blood Gas Modality VENT - AC Blood Gas Notified Time 08/03/2016 11:47:09 AM Blood Gas Notified Whom JLD Blood Gas Respiration Rate 14.0 Blood Gas Specimen Source Blood arterial Blood Gas Temperature 37.0 Blood Gas Tidal Volume 500.0 FiO2 100.0 Oxyhemoglobin Percent 94.8 Total Hemoglobin 12.5 Test 08/03/16 12:44 08/03/16 13:05 08/03/16 18:53 2/7/17 21:42 Urine Amphetamines Screen NEGATIVE Urine Barbiturates NEGATIVE Urine Benzodiazepines Screen POSITIVE Urine Bilirubin NEGATIVE Urine Cannabinoids NEGATIVE Urine Clarity CLEAR Urine Cocaine Screen NEGATIVE Urine Color LT. YELLOW Urine Eosinophils % 0.0 Urine Glucose NEGATIVE Urine Hemoglobin 1+ H Urine Ketones NEGATIVE Urine Leukocyte Esterase TRACE H Urine Microscopic RBC 0-2 Urine Microscopic WBC 0-2 Urine Nitrite NEGATIVE Urine Opiates Screen NEGATIVE Urine Random Creatinine 16.37 L Urine Random Sodium 138 H Urine Specific [place] 1.015 Urine Squamous Epithelial Cells OCCASIONAL Urine Total Protein Urine Urobilinogen 0.2 E.U./dL Urine pH 5.0 Anion Gap 21 H Blood Urea Nitrogen 50 H Calcium Level 9.2 Carbon Dioxide Level 15 L Chloride Level 113 H Creatine Kinase 251 H Creatine Kinase Index 1.3 Creatinine 1.77 H Creatinine Kinase MB (Mass) 3.34 H Glucose Level 95 # Potassium Level 4.5 Sodium Level 144 Troponin I 0.269 *H Bedside Glucose 94 110 Test 08/03/16 23:00 08/04/16 01:21 08/04/16 04:12 08/04/16 04:15 Activated Partial Thromboplast Time 34.2 INR International Normalized Ratio 1.40 Prothrombin Time 17.2 H Prothrombin Time Ratio 1.3 Bedside Glucose 137 195 Alanine Aminotransferase (ALT/SGPT) 30 Albumin 3.3 # Alkaline Phosphatase 79 Anion Gap 19 H Aspartate Amino Transf (AST/SGOT) 44 Blood Urea Nitrogen 49 H Calcium Level 8.6 Carbon Dioxide Level 18 L Chloride Level 108 Cholesterol Level 156 Cholesterol/HDL Ratio 2.6 Creatine Kinase 932 #H Creatinine 1.79 H Direct Bilirubin 0.00 Glucose Level 200 # HDL Cholesterol 58 Indirect Bilirubin 0.4 LDL Cholesterol, Calculated 73 Lactic Acid Level 1.9 Potassium Level 4.1 Sodium Level 141 Thyroid Stimulating Hormone (TSH) 1.410 Total Bilirubin 0.4 Total Protein 6.4 # Triglycerides Level 125 Uric Acid 10.2 H Test 08/04/16 05:00 08/04/16 06:10 08/04/16 07:00 Basophils # 0.0 Basophils % 0.1 Blood Morphology Comment Eosinophils # 0.0 Eosinophils % 0.0 Hematocrit 33.5 L Hemoglobin 11.1 L Lymphocytes # 1.3 Lymphocytes % 5.1 L Mean Corpuscular Hemoglobin 30.0 Mean Corpuscular Hemoglobin Concent 33.1 Mean Corpuscular Volume 90.7 Mean Platelet Volume 11.2 H Monocytes # 0.7 Monocytes % 3.0 Neutrophils # 22.8 H Neutrophils % 91.8 H Nucleated Red Blood Cells # 0.0 Nucleated Red Blood Cells % 0.0 Platelet Count 199 # Red Blood Count 3.70 L Red Cell Distribution Width 15.3 H White Blood Count 24.9 #H Activated Partial Thromboplast Time Pending INR International Normalized Ratio 1.58 Prothrombin Time 19.0 H Prothrombin Time Ratio 1.5 Arterial Blood HCO3 15.2 L Arterial Blood Base Excess -9.5 L Arterial Blood Oxygen Saturation 98.4 Morteza Test ACCEPTAB Arterial Blood Gas Puncture Site Left Radial Arterial Blood Carboxyhemoglobin 0.2 Arterial Blood Date Drawn 08/04/2016 7:20:26 AM Arterial Blood Methemoglobin 0.3 Arterial Blood pCO2 (Temp correct) 30.0 L Arterial Blood pH (Temp corrected) 7.324 L Arterial Blood pO2 (Temp corrected) 142.3 H Blood Gas A-a O2 Differential 180.5 H Blood Gas Actual Respiration Rate 14 Blood Gas Low PEEP Setting 5.0 Blood Gas Modality VENT - AC Blood Gas Notified Time 08/04/2016 8:11:19 AM Blood Gas Notified Whom JLD Blood Gas Respiration Rate 14.0 Blood Gas Specimen Source Blood arterial Blood Gas Temperature 37.0 Blood Gas Tidal Volume 500.0 FiO2 50.0 Oxyhemoglobin Percent 97.9 Total Hemoglobin 12.1 Medications Medications Current Medications Dexmedetomidine HCl 200 mcg/ Sodium Chloride 50 ml @ 0 mls/hr TITRATE IV Last administered on 08/03/16 04:39; Admin Dose 4.5 MLS/HR; Start 08/03/16 at 04:00 Piperacillin Sod/ Tazobactam Sod 50 ml @ 100 mls/hr Q8 IVPB Last administered on 08/04/16 06:02; Admin Dose 100 MLS/HR; Start 08/03/16 at 06:00 Propofol (Diprivan) 100 ml @ 2.73 mls/hr Q12H IV ; Start 08/03/16 at 04:30 Insulin Aspart (Novolog Insulin Pen) NOVOLOG *MILD* ALGORI... Q4 SC Last administered on 08/04/16 04:48; Admin Dose 2 UNIT; Start 08/03/16 at 05:00 Aspirin (Aspirin) 81 mg DAILY NGT Last administered on 08/03/16 10:07; Admin Dose 81 MG; Start 08/03/16 at 09:00 Famotidine 20 mg 20 mg DAILY IV Last administered on 08/03/16 10:07; Admin Dose 20 MG; Start 08/03/16 at 09:00 Dopamine HCl/ Dextrose 250 ml @ 6.825 mls/ hr TITRATE IV Last administered on 08/03/16 22:14; Admin Dose 23.888 MLS/HR; Start 08/03/16 at 07:00 Fentanyl (Sublimaze) 100 ml @ 5 mls/hr TITRATE IV Last administered on 07:54; Admin Dose 5 MLS/HR; Start 08/03/16 at 10:00 IV Flush (NS 10 ml) 10 ml PRN PRN IV IV PROTOCOL; Start 08/03/16 at 16:30 Atorvastatin Calcium 80 mg 80 mg HS NGT Last administered on 08/03/16 21:40; Admin Dose 80 MG; Start 08/03/16 at 21:00 Sodium Bicarbonate/ Dextrose (Na Bicarb/D5W) 1,100 ml @ 75 mls/hr [id number] IV Last administered on 08/03/16 21:40; Admin Dose 75 MLS/HR; Start 08/03/16 at 21: 00 Acetaminophen 650 mg 650 mg Q6H PRN NGT PAIN AND OR ELEVATED TEMP Last administered on 08/03/16 22:08; Admin Dose 650 MG; Start 08/03/16 at 22:00 Midazolam HCl (Versed) 50 ml @ 1 mls/hr TITRATE IV Last administered on 22:21; Admin Dose 3 MLS/HR; Start 08/03/16 at 22:15 JEREMIAH ACEVEDO MD Aug 04, 2016 08:46
[2016-08-04 08:48] LABS: PARTIAL THROMBOPLASTIN TIME 93.7 Sec (25.0-35.0)
[2016-08-04] MEDS: ASPIRIN 81 MG TAB NGT SCH (08:58)
[2016-08-04] MEDS: FAMOTIDINE 20 MG INJ IV SCH (08:58)
[2016-08-04] MEDS: DOPamine-D5W 1.6 MG/ML 250 ML IV SCH (09:07)
--- NOTE | 2016-08-04 09:16 | CONS ---
Date/Time of Note Date/Time of Note DATE: 08/04/16 TIME: 09:07 Assessment/Plan Assessment/Plan Additional Assessment/Plan Assessment and recommendation; 1. Patient admitted with respiratory failure due to acute DE leading to severe pulmonary edema. 2. Hypothyroidism . 3. Diabetes . 4. Hypertension 5. Patient currently hypotensive on dopamine drip. 6. Renal insufficiency 7. Difficult to rule out superimposed aspiration pneumonia the patient now has significant leukocytosis. Continue current treatment. ABG has improved with improving metabolic acidosis. Continue IV heparin. Continue Zosyn. She will be given a sedation vacation to assess mental status. Cardiology consult is appreciated from Dr. Quiroga. Prognosis is guarded. I did have a very detailed discussion the patient's 2 sons at bedside and answered all their questions. Consultation Date/Type/Reason Admit Date/Time 08/03/15 Date of Consultation: Aug 04, 2016 Type of Consultation: Pulmonary/critical care Reason for Consultation Patient admitted with respiratory failure. History of presenting illness; and is a 74-year-old white lady who was brought into the emergency room yesterday with complaints of being short of breath for the last couple of days patient then developed respiratory failure had to be intubated by the ER physician apparently no CPR was done. She was obtained from medical records as well as 2 of the sounds were present in the room who witnessed the event at home. According to 1 of the son the patient has been having some shortness of breath over the last couple of days and 2 days ago the patient became more short of breath she was laid in bed and however several hours later the patient son heard a thump and the patient collapsed on the floor but she still have a pulse with slurred speech. EMS was called in. Patient was brought into [facility] where she was evaluated and intubated because of severe pulmonary edema. There is no history of any coughing wheezing sputum production fever chills or chest pain prior to the event. Past medical history: 1. Diabetes. 2. Hypertension. 3. Hypothyroidism. 4. No known history of coronary artery disease with patient does have history of congestive heart failure. Next 5. No history of any major surgery other than bilateral cataract surgery. Medications; were reviewed. Next Allergies; unknown next Social history; patient has a remote history of any skin smoking, no spinal cord drug abuse. Next Family history; patient is single, lives with her son. She has 2 sons. Occupational history; patient has been a housewife and a cook. Review of systems; currently unable to be obtained. General examination; elderly lady, or intubated, sedated, currently in no distress. Psychological: other (unable to assess) Past Medical History Medical History: diabetes, hypertension, hypothyroid Social History Alcohol Use: none Smoking Status: Never smoker Drug Use: none Exam/Review of Systems Vital Signs Vitals Vital Signs Date Time Temp Pulse Resp B/P Pulse Ox O2 Delivery O2 Flow Rate FiO2 08/04/16 08:00 50 08/04/16 06:30 93 16 107/59 100 Mechanical Ventilator 08/04/16 04:00 99.4 Intake and Output 08/03/16 08/03/16 08/04/16 15:00 23:00 07:00 Intake Total 50 ml 620.5 ml 831.5 ml Output Total 1500 ml 980 ml 1050 ml Balance -1450 ml -359.5 ml -218.5 ml Exam HEENT examination; supple neck, positive JVD. No lymphadenopathy. No thyromegaly. Pupils are small bilaterally with bilateral intraocular lens implants. No neck bruits. Trachea is midline. Chest examination; diminished breath sounds throughout. S1-S2 audible. No murmurs. Regular rate and rhythm. Abdomen examination; soft, protuberant. No organomegaly. Bowel sounds audible. Extremity examination; no peripheral edema. Pulses 2+ bilaterally. There is no clubbing. DIAL REFINISHER examination; patient currently sedated. Ventilator settings are AC of 14, tidal volume 500, PEEP of 5, 30% FiO2. 2D echocardiogram is showing EF of around 35%. With moderate mitral regurgitation. CT of the head is unremarkable. Chest x-ray was reviewed from yesterday as well as today which is showing severe pulmonary edema with interval improvement on today's chest x-ray. EKG is not showing any ischemic changes. Results Result Diagram: 08/04/16 0500 08/04/16 0415 Results 24 hrs Laboratory Tests Test 08/03/16 09:10 08/03/16 11:04 08/03/16 11:30 08/03/16 12:13 Anion Gap 24 H Blood Urea Nitrogen 50 H Calcium Level 8.9 Carbon Dioxide Level 12 L Chloride Level 113 H Creatine Kinase 165 Creatine Kinase Index 1.6 Creatinine 1.75 H Creatinine Kinase MB (Mass) 2.61 H Glucose Level 144 # Magnesium Level 1.5 L Phosphorus Level 4.0 Potassium Level 5.1 Sodium Level 144 Troponin I 0.201 *H Bedside Glucose 94 117 Arterial Blood HCO3 13.2 L Arterial Blood Base Excess -11.7 L Arterial Blood Oxygen Saturation 95.5 Morteza Test ACCEPTAB Arterial Blood Gas Puncture Site Right Radial Arterial Blood Carboxyhemoglobin 0.3 Arterial Blood Date Drawn 08/03/2016 11:30:33 AM Arterial Blood Methemoglobin 0.4 Arterial Blood pCO2 (Temp correct) 27.5 L Arterial Blood pH (Temp corrected) 7.298 *L Arterial Blood pO2 (Temp corrected) 82.3 Blood Gas A-a O2 Differential 603.2 H Blood Gas Actual Respiration Rate 31 Blood Gas Critical Value Read Back DR KENT Blood Gas Low PEEP Setting 5.0 Blood Gas Modality VENT - AC Blood Gas Notified Time 08/03/2016 11:47:09 AM Blood Gas Notified Whom JLD Blood Gas Respiration Rate 14.0 Blood Gas Specimen Source Blood arterial Blood Gas Temperature 37.0 Blood Gas Tidal Volume 500.0 FiO2 100.0 Oxyhemoglobin Percent 94.8 Total Hemoglobin 12.5 Test 08/03/16 12:44 08/03/16 13:05 08/03/16 18:53 08/03/16 21:42 Urine Amphetamines Screen NEGATIVE Urine Barbiturates NEGATIVE Urine Benzodiazepines Screen POSITIVE Urine Bilirubin NEGATIVE Urine Cannabinoids NEGATIVE Urine Clarity CLEAR Urine Cocaine Screen NEGATIVE Urine Color LT. YELLOW Urine Eosinophils % 0.0 Urine Glucose NEGATIVE Urine Hemoglobin 1+ H Urine Ketones NEGATIVE Urine Leukocyte Esterase TRACE H Urine Microscopic RBC 0-2 Urine Microscopic WBC 0-2 Urine Nitrite NEGATIVE Urine Opiates Screen NEGATIVE Urine Random Creatinine 16.37 L Urine Random Sodium 138 H Urine Specific [place] 1.015 Urine Squamous Epithelial Cells OCCASIONAL Urine Total Protein Urine Urobilinogen 0.2 E.U./dL Urine pH 5.0 Anion Gap 21 H Blood Urea Nitrogen 50 H Calcium Level 9.2 Carbon Dioxide Level 15 L Chloride Level 113 H Creatine Kinase 251 H Creatine Kinase Index 1.3 Creatinine 1.77 H Creatinine Kinase MB (Mass) 3.34 H Glucose Level 95 # Potassium Level 4.5 Sodium Level 144 Troponin I 0.269 *H Bedside Glucose 94 110 Test 08/03/16 23:00 08/04/16 01:21 08/04/16 04:12 08/04/16 04:15 Activated Partial Thromboplast Time 34.2 INR International Normalized Ratio 1.40 Prothrombin Time 17.2 H Prothrombin Time Ratio 1.3 Bedside Glucose 137 195 Alanine Aminotransferase (ALT/SGPT) 30 Albumin 3.3 # Alkaline Phosphatase 79 Anion Gap 19 H Aspartate Amino Transf (AST/SGOT) 44 Blood Urea Nitrogen 49 H Calcium Level 8.6 Carbon Dioxide Level 18 L Chloride Level 108 Cholesterol Level 156 Cholesterol/HDL Ratio 2.6 Creatine Kinase 932 #H Creatinine 1.79 H Direct Bilirubin 0.00 Glucose Level 200 # HDL Cholesterol 58 Indirect Bilirubin 0.4 LDL Cholesterol, Calculated 73 Lactic Acid Level 1.9 Potassium Level 4.1 Sodium Level 141 Thyroid Stimulating Hormone (TSH) 1.410 Total Bilirubin 0.4 Total Protein 6.4 # Triglycerides Level 125 Uric Acid 10.2 H Test 08/04/16 05:00 08/04/16 06:10 08/04/16 07:00 08/04/16 08:55 Basophils # 0.0 Basophils % 0.1 Blood Morphology Comment Eosinophils # 0.0 Eosinophils % 0.0 Hematocrit 33.5 L Hemoglobin 11.1 L Lymphocytes # 1.3 Lymphocytes % 5.1 L Mean Corpuscular Hemoglobin 30.0 Mean Corpuscular Hemoglobin Concent 33.1 Mean Corpuscular Volume 90.7 Mean Platelet Volume 11.2 H Monocytes # 0.7 Monocytes % 3.0 Neutrophils # 22.8 H Neutrophils % 91.8 H Nucleated Red Blood Cells # 0.0 Nucleated Red Blood Cells % 0.0 Platelet Count 199 # Red Blood Count 3.70 L Red Cell Distribution Width 15.3 H White Blood Count 24.9 #H Activated Partial Thromboplast Time 93.7 *H INR International Normalized Ratio 1.58 Prothrombin Time 19.0 H Prothrombin Time Ratio 1.5 Arterial Blood HCO3 15.2 L Arterial Blood Base Excess -9.5 L Arterial Blood Oxygen Saturation 98.4 Morteza Test ACCEPTAB Arterial Blood Gas Puncture Site Left Radial Arterial Blood Carboxyhemoglobin 0.2 Arterial Blood Date Drawn 08/04/2016 7:20:26 AM Arterial Blood Methemoglobin 0.3 Arterial Blood pCO2 (Temp correct) 30.0 L Arterial Blood pH (Temp corrected) 7.324 L Arterial Blood pO2 (Temp corrected) 142.3 H Blood Gas A-a O2 Differential 180.5 H Blood Gas Actual Respiration Rate 14 Blood Gas Low PEEP Setting 5.0 Blood Gas Modality VENT - AC Blood Gas Notified Time 08/04/2016 8:11:19 AM Blood Gas Notified Whom JLD Blood Gas Respiration Rate 14.0 Blood Gas Specimen Source Blood arterial Blood Gas Temperature 37.0 Blood Gas Tidal Volume 500.0 FiO2 50.0 Oxyhemoglobin Percent 97.9 Total Hemoglobin 12.1 Bedside Glucose 216 Medications Medications Current Medications Dexmedetomidine HCl 200 mcg/ Sodium Chloride 50 ml @ 0 mls/hr TITRATE IV Last administered on 08/03/16 04:39; Admin Dose 4.5 MLS/HR; Start 08/03/16 at 04:00 Piperacillin Sod/ Tazobactam Sod 50 ml @ 100 mls/hr Q8 IVPB Last administered on 08/04/16 06:02; Admin Dose 100 MLS/HR; Start 08/03/16 at 06:00 Propofol (Diprivan) 100 ml @ 2.73 mls/hr Q12H IV ; Start 08/03/16 at 04:30 Insulin Aspart (Novolog Insulin Pen) NOVOLOG *MILD* ALGORI... Q4 SC Last administered on 08/04/16 04:48; Admin Dose 2 UNIT; Start 08/03/16 at 05:00 Aspirin (Aspirin) 81 mg DAILY NGT Last administered on 08/03/16 10:07; Admin Dose 81 MG; Start 08/03/16 at 09:00 Famotidine 20 mg 20 mg DAILY IV Last administered on 08/03/16 10:07; Admin Dose 20 MG; Start 08/03/16 at 09:00 Dopamine HCl/ Dextrose 250 ml @ 6.825 mls/ hr TITRATE IV Last administered on 08/03/16 22:14; Admin Dose 23.888 MLS/HR; Start 08/03/16 at 07:00 Fentanyl (Sublimaze) 100 ml @ 5 mls/hr TITRATE IV Last administered on 07:54; Admin Dose 5 MLS/HR; Start 08/03/16 at 10:00 IV Flush (NS 10 ml) 10 ml PRN PRN IV IV PROTOCOL; Start 08/03/16 at 16:30 Atorvastatin Calcium 80 mg 80 mg HS NGT Last administered on 08/03/16 21:40; Admin Dose 80 MG; Start 08/03/16 at 21:00 Sodium Bicarbonate/ Dextrose (Na Bicarb/D5W) 1,100 ml @ 75 mls/hr [id number] IV Last administered on 08/03/16 21:40; Admin Dose 75 MLS/HR; Start 08/03/16 at 21: 00 Acetaminophen 650 mg 650 mg Q6H PRN NGT PAIN AND OR ELEVATED TEMP Last administered on 08/03/16 22:08; Admin Dose 650 MG; Start 08/03/16 at 22:00 Midazolam HCl (Versed) 50 ml @ 1 mls/hr TITRATE IV Last administered on 22:21; Admin Dose 3 MLS/HR; Start 08/03/16 at 22:15 CORI TROY Aug 04, 2016 09:16
[2016-08-04] MEDS ORDERED: GLUCAGON 1 MG INJ IM PRN (09:30)
[2016-08-04] MEDS ORDERED: DEXTROSE 50% 50 ML SYRINGE IV PRN ×2 (09:30)
[2016-08-04] MEDS ORDERED: GLUCOSE GEL 15 GRAM TUBE PO PRN ×2 (09:30)
[2016-08-04] MEDS ORDERED: GLUCOSE GEL 15 GRAM TUBE BUCCAL PRN (09:30)
--- NOTE | 2016-08-04 09:43 | CONS ---
Date/Time of Note Date/Time of Note DATE: 08/04/16 TIME: 09:36 Assessment/Plan Assessment/Plan Additional Assessment/Plan 1. Acute kidney injury versus acute kidney injury on chronic kidney disease secondary to cardiorenal syndrome. 2. Acute congestive heart failure exacerbation with pulmonary edema. 3. Hypomagnesemia. 4. Metabolic acidosis with a bicarbonate of 12. On chemistry, her blood gas shows a pH of 7.29. 5. History of hypertension. 6. History of diabetes mellitus. 7. History of hypothyroidism. 8. Acute hypoxemic respiratory failure, currently intubated secondary to acute pulmonary edema. 9. Non-ST elevation myocardial infarction. 10. Severe acute CHF with pulmonary edema. 11. Anion gap metabolic acidosis secondary to acute renal failure. 12. Systemic inflammatory response syndrome versus sepsis from probable underlying pneumonia. 13. Acute encephalopathy, multifactorial. PLAN: on HCO3 drip- good urine output Cr 1.79 U/o 3.5 liter on IV lasix will follow up continue current bicarbonate drip Consultation Date/Type/Reason Admit Date/Time Aug 03, 2016 at 04:29 Initial Consult Date 08/04/16 Type of Consultation: NEPHROLOGY Referring Provider: JEREMIAH ACEVEDO MD 24 HR Interval Summary Free Text/Dictation pt remains intubated, on ventilator, Fio2 down to 35%, good urine outut, CXR improving Exam/Review of Systems Vital Signs Vitals Vital Signs Date Time Temp Pulse Resp B/P Pulse Ox O2 Delivery O2 Flow Rate FiO2 08/04/16 08:00 50 08/04/16 08:00 116 08/04/16 06:30 16 107/59 100 Mechanical Ventilator 08/04/16 04:00 99.4 Intake and Output 08/03/16 08/03/16 08/04/16 15:00 23:00 07:00 Intake Total 50 ml 620.5 ml 831.5 ml Output Total 1500 ml 980 ml 1050 ml Balance -1450 ml -359.5 ml -218.5 ml Exam GENERAL: The patient is currently sedated, intubated on ventilator. HEENT: ET tube in place. NECK: Supple. LUNGS: Bilateral coarse breath sounds. No wheezing. HEART: S1, S2, with regular rhythm, no murmur. ABDOMEN: Soft, nontender, nondistended. Bowel sounds are present. EXTREMITIES: No clubbing, cyanosis, or edema. NEUROLOGICAL: Nonfocal, intact. PSYCHIATRIC: Appropriate affect and mood. + Anderson catheter Results Result Diagram: 08/04/16 0500 08/04/16 0415 Results 24 hrs Laboratory Tests Test 08/03/16 11:04 08/03/16 11:30 08/03/16 12:13 08/03/16 12:44 Bedside Glucose 94 117 Arterial Blood HCO3 13.2 L Arterial Blood Base Excess -11.7 L Arterial Blood Oxygen Saturation 95.5 Morteza Test ACCEPTAB Arterial Blood Gas Puncture Site Right Radial Arterial Blood Carboxyhemoglobin 0.3 Arterial Blood Date Drawn 08/03/2016 11:30:33 AM Arterial Blood Methemoglobin 0.4 Arterial Blood pCO2 (Temp correct) 27.5 L Arterial Blood pH (Temp corrected) 7.298 *L Arterial Blood pO2 (Temp corrected) 82.3 Blood Gas A-a O2 Differential 603.2 H Blood Gas Actual Respiration Rate 31 Blood Gas Critical Value Read Back DR KENT Blood Gas Low PEEP Setting 5.0 Blood Gas Modality VENT - AC Blood Gas Notified Time 08/03/2016 11:47:09 AM Blood Gas Notified Whom JLD Blood Gas Respiration Rate 14.0 Blood Gas Specimen Source Blood arterial Blood Gas Temperature 37.0 Blood Gas Tidal Volume 500.0 FiO2 100.0 Oxyhemoglobin Percent 94.8 Total Hemoglobin 12.5 Urine Amphetamines Screen NEGATIVE Urine Barbiturates NEGATIVE Urine Benzodiazepines Screen POSITIVE Urine Bilirubin NEGATIVE Urine Cannabinoids NEGATIVE Urine Clarity CLEAR Urine Cocaine Screen NEGATIVE Urine Color LT. YELLOW Urine Eosinophils % 0.0 Urine Glucose NEGATIVE Urine Hemoglobin 1+ H Urine Ketones NEGATIVE Urine Leukocyte Esterase TRACE H Urine Microscopic RBC 0-2 Urine Microscopic WBC 0-2 Urine Nitrite NEGATIVE Urine Opiates Screen NEGATIVE Urine Random Creatinine 16.37 L Urine Random Sodium 138 H Urine Specific [place] 1.015 Urine Squamous Epithelial Cells OCCASIONAL Urine Total Protein Urine Urobilinogen 0.2 E.U./dL Urine pH 5.0 Test 08/03/16 13:05 08/03/16 18:53 08/03/16 21:42 08/03/16 23:00 Anion Gap 21 H Blood Urea Nitrogen 50 H Calcium Level 9.2 Carbon Dioxide Level 15 L Chloride Level 113 H Creatine Kinase 251 H Creatine Kinase Index 1.3 Creatinine 1.77 H Creatinine Kinase MB (Mass) 3.34 H Glucose Level 95 # Potassium Level 4.5 Sodium Level 144 Troponin I 0.269 *H Bedside Glucose 94 110 Activated Partial Thromboplast Time 34.2 INR International Normalized Ratio 1.40 Prothrombin Time 17.2 H Prothrombin Time Ratio 1.3 Test 08/04/16 01:21 08/04/16 04:12 08/04/16 04:15 08/04/16 05:00 Bedside Glucose 137 195 Alanine Aminotransferase (ALT/SGPT) 30 Albumin 3.3 # Alkaline Phosphatase 79 Anion Gap 19 H Aspartate Amino Transf (AST/SGOT) 44 Blood Urea Nitrogen 49 H Calcium Level 8.6 Carbon Dioxide Level 18 L Chloride Level 108 Cholesterol Level 156 Cholesterol/HDL Ratio 2.6 Creatine Kinase 932 #H Creatinine 1.79 H Direct Bilirubin 0.00 Glucose Level 200 # HDL Cholesterol 58 Indirect Bilirubin 0.4 LDL Cholesterol, Calculated 73 Lactic Acid Level 1.9 Potassium Level 4.1 Sodium Level 141 Thyroid Stimulating Hormone (TSH) 1.410 Total Bilirubin 0.4 Total Protein 6.4 # Triglycerides Level 125 Uric Acid 10.2 H Basophils # 0.0 Basophils % 0.1 Blood Morphology Comment Eosinophils # 0.0 Eosinophils % 0.0 Hematocrit 33.5 L Hemoglobin 11.1 L Lymphocytes # 1.3 Lymphocytes % 5.1 L Mean Corpuscular Hemoglobin 30.0 Mean Corpuscular Hemoglobin Concent 33.1 Mean Corpuscular Volume 90.7 Mean Platelet Volume 11.2 H Monocytes # 0.7 Monocytes % 3.0 Neutrophils # 22.8 H Neutrophils % 91.8 H Nucleated Red Blood Cells # 0.0 Nucleated Red Blood Cells % 0.0 Platelet Count 199 # Red Blood Count 3.70 L Red Cell Distribution Width 15.3 H White Blood Count 24.9 #H Test 08/04/16 06:10 08/04/16 07:00 08/04/16 08:55 Activated Partial Thromboplast Time 93.7 *H INR International Normalized Ratio 1.58 Prothrombin Time 19.0 H Prothrombin Time Ratio 1.5 Arterial Blood HCO3 15.2 L Arterial Blood Base Excess -9.5 L Arterial Blood Oxygen Saturation 98.4 Morteza Test ACCEPTAB Arterial Blood Gas Puncture Site Left Radial Arterial Blood Carboxyhemoglobin 0.2 Arterial Blood Date Drawn 08/04/2016 7:20:26 AM Arterial Blood Methemoglobin 0.3 Arterial Blood pCO2 (Temp correct) 30.0 L Arterial Blood pH (Temp corrected) 7.324 L Arterial Blood pO2 (Temp corrected) 142.3 H Blood Gas A-a O2 Differential 180.5 H Blood Gas Actual Respiration Rate 14 Blood Gas Low PEEP Setting 5.0 Blood Gas Modality VENT - AC Blood Gas Notified Time 08/04/2016 8:11:19 AM Blood Gas Notified Whom JLD Blood Gas Respiration Rate 14.0 Blood Gas Specimen Source Blood arterial Blood Gas Temperature 37.0 Blood Gas Tidal Volume 500.0 FiO2 50.0 Oxyhemoglobin Percent 97.9 Total Hemoglobin 12.1 Bedside Glucose 216 Medications Medications Current Medications Piperacillin Sod/ Tazobactam Sod (Zosyn 2.25gm/ 50ml (Pmx)) 50 ml @ 100 mls/hr Q8 IVPB Last administered on 08/04/16 06:02; Admin Dose 100 MLS/HR; Start at 06:00 Aspirin (Aspirin) 81 mg DAILY NGT Last administered on 08/04/16 08:58; Admin Dose 81 MG; Start 08/03/16 at 09:00 Famotidine 20 mg 20 mg DAILY IV Last administered on 08/04/16 08:58; Admin Dose 20 MG; Start 08/03/16 at 09:00 Dopamine HCl/ Dextrose 250 ml @ 6.825 mls/ hr TITRATE IV Last administered on 08/04/16 09:07; Admin Dose 23.888 MLS/HR; Start 08/03/16 at 07:00 Fentanyl (Sublimaze) 100 ml @ 5 mls/hr TITRATE IV Last administered on 07:54; Admin Dose 5 MLS/HR; Start 08/03/16 at 10:00 IV Flush (NS 10 ml) 10 ml PRN PRN IV IV PROTOCOL; Start 08/03/16 at 16:30 Atorvastatin Calcium 80 mg 80 mg HS NGT Last administered on 08/03/16 21:40; Admin Dose 80 MG; Start 08/03/16 at 21:00 Sodium Bicarbonate/ Dextrose (Na Bicarb/D5W) 1,100 ml @ 75 mls/hr [id number] IV Last administered on 08/03/16 21:40; Admin Dose 75 MLS/HR; Start 08/03/16 at 21: 00 Acetaminophen 650 mg 650 mg Q6H PRN NGT PAIN AND OR ELEVATED TEMP Last administered on 08/03/16 22:08; Admin Dose 650 MG; Start 08/03/16 at 22:00 Midazolam HCl (Versed) 50 ml @ 1 mls/hr TITRATE IV Last administered on 22:21; Admin Dose 3 MLS/HR; Start 08/03/16 at 22:15 Insulin Aspart (Novolog Insulin Pen) NOVOLOG *MODERATE* ALGORI... Q4 SC ; Start 08/04/16 at 13:00 Miscellaneous Information 1 ea NOTE XX ; Start 08/04/16 at 09:30 Glucose (Glutose) 15 gm Q15M PRN PO DECREASED GLUCOSE; Start 08/04/16 at 09:30 Glucose (Glutose) 22.5 gm Q15M PRN PO DECREASED GLUCOSE; Start 08/04/16 at 09:30 Dextrose (D50w Syringe) 25 ml Q15M PRN IV DECREASED GLUCOSE; Start 08/04/16 at 09:30 Dextrose (D50w Syringe) 50 ml Q15M PRN IV DECREASED GLUCOSE; Start 08/04/16 at 09:30 Glucagon (Glucagen) 1 mg Q15M PRN IM DECREASED GLUCOSE; Start 08/04/16 at 09:30 Glucose (Glutose) 15 gm Q15M PRN BUCCAL DECREASED GLUCOSE; Start 08/04/16 at 09: 30 CARYN GALVEZ MD Aug 04, 2016 09:43
[2016-08-04] MEDS ORDERED: NORepinephrine 8MG/250 ML (PMX 250 ML ONE (11:34)
[2016-08-04] MEDS ORDERED: AMIODARONE 150MG/D5W BOLUS 0 ML ONE (11:37)
[2016-08-04] MEDS ORDERED: [UNRECOGNIZED DRUG - REMARK] IV SCH (12:00)
[2016-08-04] MEDS ORDERED: AMIODARONE 150MG/D5W BOLUS 100 ML IV ONE (12:00)
[2016-08-04] MEDS ORDERED: MAGNESIUM SULFATE 3 GM in SOD CHLORIDE 0.9% 100 ML IVPB ONE (12:00)
[2016-08-04] MEDS ORDERED: AMIODARONE DRIP 1 MG/MIN X 6 HRS, THEN 0.5 MG/MIN X 18 HRS THEN DC IV SCH (12:00)
[2016-08-04] MEDS: MAGNESIUM SULFATE 2 GM/50 ML 50 ML IVPB SCH ×3 (12:24→13:22)
[2016-08-04] MEDS ORDERED: NORepinephrine 8MG/250 ML (PMX 250 ML IV SCH ×2 (12:30→14:30)
[2016-08-04 12:34] LABS: AADO2 Arterial 592.1 mmHg (7.0-24.0); Allen Test ACCEPTAB; Arterial Base Excess -8.7 mmol/L (-3.0-3); Arterial COHb 0.3 % (0.0-3.0); Arterial Fraction of Oxyhgb 95.2 % (93.0-99.0); Arterial HCO3 16.1 mmol/L (22.0-26.0); Arterial MetHb 0.4 % (0.0-1.5); Arterial Total Hemglobin 11.9 g/dl (12.0-18.0); MODE VENT - AC
[2016-08-04 12:39] LABS: BASOPHIL # 0.1 10^3/ul (0.0-0.1); BASOPHILS % 0.3 % (0.0-2.0); EOSINOPHILS # 0.1 10^3/ul (0.0-0.5); EOSINOPHILS % 0.4 % (0.0-7.0); HEMATOCRIT 30.6 % (37.0-47.0); LYMPHOCYTES # 3.4 10^3/ul (0.8-2.9); LYMPHOCYTES % 18.5 % (15.0-51.0); MEAN CORPUSCULAR HEMOGLOBIN 29.8 pg (29.0-33.0); MEAN CORPUSCULAR HGB CONC 32.7 g/dl (32.0-37.0); MEAN CORPUSCULAR VOLUME 91.2 fl (82.0-101.0); MEAN PLATELET VOLUME 11.2 fl (7.4-10.4); MONOCYTE # 0.7 10^3/ul (0.3-0.9); MONOCYTES % 3.7 % (0.0-11.0); NEUTROPHIL # 14.2 10^3/ul (1.6-7.5); NEUTROPHILS % 77.1 % (39.0-77.0); PLATELET COUNT 197 10^3/UL (140-440); RED BLOOD COUNT 3.35 10^6/ul (4.20-5.40); RED CELL DISTRIBUTION WIDTH 15.6 % (11.5-14.5); UNCORRECTED WBC 18.4 10^3/ul (4.8-10.8); WHITE BLOOD COUNT 18.4 10^3/ul (4.8-10.8)
[2016-08-04 12:46] LABS: CONDITION 1; LH ANALYZER COMMENTS 1
[2016-08-04 13:04] LABS: POTASSIUM 3.1 mmol/L (3.5-5.1)
[2016-08-04 13:07] LABS: CREATININE 1.56 mg/dl (0.44-1.00)
[2016-08-04 13:08] LABS: CALCIUM 9.1 mg/dl (8.4-10.2); MAGNESIUM 4.7 mg/dl (1.7-2.5)
[2016-08-04] MEDS ORDERED: POTASSIUM CHLORIDE 250 ML IVPB ONE (13:30)
--- NOTE | 2016-08-04 13:31 | RADRPT ---
PROCEDURE: XR Chest. CLINICAL INDICATION: Status post code blue. Respiratory failure. TECHNIQUE: Single frontal view of the chest was obtained COMPARISON: Chest x-ray 08/04/2016 06:01 a.m. FINDINGS: The endotracheal tube rests about a centimeter from the delvis and could be withdrawn about 3 cm for more secure positioning. An NG tube is noted distal to the GE junction. Heart is enlarged. There are bilateral pulmonary alveolar infiltrates. No pleural effusion is noted. There are degenerativ e osteophytes in the thoracic spine. Monitoring electrodes are draped across the chest. There has been no significant change when compared to the earlier study allowing for differences in inspirator y effort. There is a tubing artifact of unclear etiology extending obliquely across the heart into t he area to the right of the trachea unclear significance. Clinical correlation is needed. IMPRESSION: 1. Congestive heart failure with bilateral pulmonary edema which may be slightly worse as compared t o the prior study. 2. The endotracheal tube rests 1 cm from the delvis and could be withdrawn 3 cm for more to secure positioning. 2. Satisfactory positioning of the NG tube. 3. Atherosclerosis of the aortic arch. 4. Spondylosis of the thoracic spine. RPTAT:AAJJ Physician Christine Date Time Electronically viewed and signed by Physician Christine on 08/04/2016 13:31 RAGHAVENDRA/
[2016-08-04] MEDS: NS + KCL 20 MEQ 1,000 ML IV SCH (13:41)
[2016-08-04] MEDS: MIDAZOLAM (DRIP) 50 mg/50 mL 50 ML IV SCH (13:41)
--- NOTE | 2016-08-04 13:56 | CONS ---
Date/Time of Note Date/Time of Note DATE: 08/04/16 TIME: 13:49 Assessment/Plan Assessment/Plan Additional Assessment/Plan Left-sided weakness concerning for CVA Cardiac arrest Respiratory failure Acute decompensated systolic congestive heart failure Cardiomyopathy with ejection fraction 35% History of hypertension Diabetes Mildly elevated troponin Acute kidney injury -Patient with increased frequency of nonsustained ventricular tachycardia. Patient decompensated into ventricular tachycardia as I was walking into the ICU. Code was called. ACLS protocol with chest compressions, defibrillation 2, magnesium and amiodarone was given. Pulse was obtained with adequate blood pressure. After approximately 10 minutes, patient once again became pulseless. Once again chest compressions and epinephrine was given and pulse was obtained. Patient was placed on lidocaine given evidence of torsades and concern for QT prolongation with amiodarone. Magnesium was given. Electrolytes are being checked. Findings discussed with the patient's family. Patient critical. Consultation Date/Type/Reason Admit Date/Time Aug 03, 2016 at 04:29 Initial Consult Date 08/04/16 Type of Consultation: cv Referring Provider: JEREMIAH ACEVEDO MD 24 HR Interval Summary Free Text/Dictation Patient with episodes of nonsustained VT becoming sustained leading to cardiac arrest. Exam/Review of Systems Vital Signs Vitals Vital Signs Date Time Temp Pulse Resp B/P Pulse Ox O2 Delivery O2 Flow Rate FiO2 08/04/16 12:00 89 08/04/16 11:40 100 08/04/16 11:25 15 100 08/04/16 11:00 109/41 Mechanical Ventilator 08/04/16 08:00 98.2 Intake and Output 08/03/16 08/03/16 08/04/16 14:59 22:59 06:59 Intake Total 50 ml 514.5 ml 937.5 ml Output Total 1400 ml 930 ml 1200 ml Balance -1350 ml -415.5 ml -262.5 ml Exam Sedated and intubated Head: normocephalic Respiratory: other (course breath sounds bilaterally with scattered crackles, no wheezing) Cardiovascular: irregular rhythm (tachycardic), other (S1 and S2 heard) Gastrointestinal: bowel sounds, non-tender, other (no grimacing with palpation) , soft Extremities: edema (mild) Results Result Diagram: 08/04/16 1220 08/04/16 1220 Results 24 hrs Laboratory Tests Test 08/03/16 18:53 08/03/16 21:42 08/03/16 23:00 08/04/16 01:21 Bedside Glucose 94 110 137 Activated Partial Thromboplast Time 34.2 INR International Normalized Ratio 1.40 Prothrombin Time 17.2 H Prothrombin Time Ratio 1.3 Test 08/04/16 04:12 08/04/16 04:15 08/04/16 05:00 08/04/16 06:10 Bedside Glucose 195 Alanine Aminotransferase (ALT/SGPT) 30 Albumin 3.3 # Alkaline Phosphatase 79 Anion Gap 19 H Aspartate Amino Transf (AST/SGOT) 44 Blood Urea Nitrogen 49 H Calcium Level 8.6 Carbon Dioxide Level 18 L Chloride Level 108 Cholesterol Level 156 Cholesterol/HDL Ratio 2.6 Creatine Kinase 932 #H Creatinine 1.79 H Direct Bilirubin 0.00 Glucose Level 200 # HDL Cholesterol 58 Indirect Bilirubin 0.4 LDL Cholesterol, Calculated 73 Lactic Acid Level 1.9 Magnesium Level 2.1 Potassium Level 4.1 Sodium Level 141 Thyroid Stimulating Hormone (TSH) 1.410 Total Bilirubin 0.4 Total Protein 6.4 # Triglycerides Level 125 Uric Acid 10.2 H Basophils # 0.0 Basophils % 0.1 Blood Morphology Comment Eosinophils # 0.0 Eosinophils % 0.0 Hematocrit 33.5 L Hemoglobin 11.1 L Lymphocytes # 1.3 Lymphocytes % 5.1 L Mean Corpuscular Hemoglobin 30.0 Mean Corpuscular Hemoglobin Concent 33.1 Mean Corpuscular Volume 90.7 Mean Platelet Volume 11.2 H Monocytes # 0.7 Monocytes % 3.0 Neutrophils # 22.8 H Neutrophils % 91.8 H Nucleated Red Blood Cells # 0.0 Nucleated Red Blood Cells % 0.0 Platelet Count 199 # Red Blood Count 3.70 L Red Cell Distribution Width 15.3 H White Blood Count 24.9 #H Activated Partial Thromboplast Time 93.7 *H INR International Normalized Ratio 1.58 Prothrombin Time 19.0 H Prothrombin Time Ratio 1.5 Test 08/04/16 07:00 08/04/16 08:55 08/04/16 11:54 08/04/16 12:09 Arterial Blood HCO3 15.2 L 16.1 L Arterial Blood Base Excess -9.5 L -8.7 L Arterial Blood Oxygen Saturation 98.4 95.9 Morteza Test ACCEPTAB ACCEPTAB Arterial Blood Gas Puncture Site Left Radial Left Radial Arterial Blood Carboxyhemoglobin 0.2 0.3 Arterial Blood Date Drawn 08/04/2016 7:20:26 AM 08/04/2016 12:25:49 PM Arterial Blood Methemoglobin 0.3 0.4 Arterial Blood pCO2 (Temp correct) 30.0 L 31.3 L Arterial Blood pH (Temp corrected) 7.324 L 7.330 L Arterial Blood pO2 (Temp corrected) 142.3 H 89.6 Blood Gas A-a O2 Differential 180.5 H 592.1 H Blood Gas Actual Respiration Rate 14 36 Blood Gas Low PEEP Setting 5.0 5.0 Blood Gas Modality VENT - AC VENT - AC Blood Gas Notified Time 08/04/2016 8:11:19 AM 08/04/2016 12:34:31 PM Blood Gas Notified Whom JAMILA MARINO Blood Gas Respiration Rate 14.0 14.0 Blood Gas Specimen Source Blood arterial Blood arterial Blood Gas Temperature 37.0 37.0 Blood Gas Tidal Volume 500.0 500.0 FiO2 50.0 100.0 Oxyhemoglobin Percent 97.9 95.2 Total Hemoglobin 12.1 11.9 L Bedside Glucose 216 399 H Test 08/04/16 12:20 08/04/16 12:47 Anion Gap 20 H B-Type Natriuretic Peptide 35188 H Basophils # 0.1 Basophils % 0.3 Blood Morphology Comment Blood Urea Nitrogen 44 H Calcium Level 9.1 Carbon Dioxide Level 17 L Chloride Level 107 Creatinine 1.56 H Eosinophils # 0.1 Eosinophils % 0.4 Glucose Level 255 H Hematocrit 30.6 L Hemoglobin 10.0 L Lymphocytes # 3.4 H Lymphocytes % 18.5 Magnesium Level 4.7 #H Mean Corpuscular Hemoglobin 29.8 Mean Corpuscular Hemoglobin Concent 32.7 Mean Corpuscular Volume 91.2 Mean Platelet Volume 11.2 H Monocytes # 0.7 Monocytes % 3.7 Neutrophils # 14.2 H Neutrophils % 77.1 H Nucleated Red Blood Cells # 0.0 Nucleated Red Blood Cells % 0.0 Platelet Count 197 Potassium Level 3.1 L Red Blood Count 3.35 L Red Cell Distribution Width 15.6 H Sodium Level 141 White Blood Count 18.4 #H Bedside Glucose 243 H Medications Medications Current Medications Piperacillin Sod/ Tazobactam Sod (Zosyn 2.25gm/ 50ml (Pmx)) 50 ml @ 100 mls/hr Q8 IVPB Last administered on 2/8/17at 13:40; Admin Dose 100 MLS/HR; Start at 06:00 Aspirin (Aspirin) 81 mg DAILY NGT Last administered on 08/04/16 08:58; Admin Dose 81 MG; Start 08/03/16 at 09:00 Famotidine 20 mg 20 mg DAILY IV Last administered on 08/04/16 08:58; Admin Dose 20 MG; Start 08/03/16 at 09:00 Fentanyl (Sublimaze) 100 ml @ 5 mls/hr TITRATE IV Last administered on 07:54; Admin Dose 2.5 MLS/HR; Start 08/03/16 at 10:00 IV Flush (NS 10 ml) 10 ml PRN PRN IV IV PROTOCOL; Start 08/03/16 at 16:30 Atorvastatin Calcium (Lipitor) 80 mg HS NGT Last administered on 08/03/16 21:40 ; Admin Dose 80 MG; Start 08/03/16 at 21:00 Acetaminophen 650 mg 650 mg Q6H PRN NGT PAIN AND OR ELEVATED TEMP Last administered on 08/03/16 22:08; Admin Dose 650 MG; Start 08/03/16 at 22:00 Midazolam HCl (Versed) 50 ml @ 1 mls/hr TITRATE IV Last administered on 13:41; Admin Dose 3 MLS/HR; Start 08/03/16 at 22:15 Insulin Aspart (Novolog Insulin Pen) NOVOLOG *MODERATE* ALGORI... Q4 SC Last administered on 08/04/16 12:55; Admin Dose 6 UNIT; Start 08/04/16 at 13:00 Miscellaneous Information 1 ea NOTE XX ; Start 08/04/16 at 09:30 Glucose (Glutose) 15 gm Q15M PRN PO DECREASED GLUCOSE; Start 08/04/16 at 09:30 Glucose (Glutose) 22.5 gm Q15M PRN PO DECREASED GLUCOSE; Start 08/04/16 at 09:30 Dextrose (D50w Syringe) 25 ml Q15M PRN IV DECREASED GLUCOSE; Start 08/04/16 at 09:30 Dextrose (D50w Syringe) 50 ml Q15M PRN IV DECREASED GLUCOSE; Start 08/04/16 at 09:30 Glucagon (Glucagen) 1 mg Q15M PRN IM DECREASED GLUCOSE; Start 08/04/16 at 09:30 Glucose 15 gm 15 gm Q15M PRN BUCCAL DECREASED GLUCOSE; Start 08/04/16 at 09:30 Magnesium Sulfate 50 ml @ 25 mls/hr Q1H IVPB Last administered on 08/04/16 13: 22; Admin Dose 25 MLS/HR; Start 08/04/16 at 12:00; Stop 08/04/16 at 14:59 Norepinephrine 250 ml @ 1.875 mls/ hr TITRATE IV Last administered on 12:49; Admin Dose 56.25 MLS/HR; Start 08/04/16 at 12:30 Lidocaine HCl/ Dextrose 500 ml @ 15 mls/hr Q24H IV ; Start 08/04/16 at 13:00 Potassium Chloride 250 ml @ 62.5 mls/hr ONCE ONCE IVPB Last administered on 13:40; Admin Dose 62.5 MLS/HR; Start 08/04/16 at 13:30; Stop 08/04/16 at 17:29 Potassium Chloride/Sodium Chloride (NS-KCl 20 Meq) 1,000 ml @ 20 mls/hr Q24H IV Last administered on 08/04/16 13:41; Admin Dose 20 MLS/HR; Start 08/04/16 at 13:30 Miguel Quiroga DO Aug 04, 2016 13:56
[2016-08-04] MEDS: LIDOCAINE 2 GM/D5W 500 ML IV SCH (14:05)
[2016-08-04 14:40] LABS: CK-MB 3.39 ng/ml (0.0-2.4)
[2016-08-04 14:44] LABS: TROPONIN-I 0.234 ng/ml (0.00-0.12)
[2016-08-04] MEDS ORDERED: SOD CHLORIDE 0.9% 1,000 ML IV ONE (16:00)
[2016-08-04] MEDS: ATORVASTATIN 80 MG TAB NGT SCH (21:17)
[2016-08-05] VITALS (83 sets, daily range): BP systolic 67–130; BP diastolic 46–110; PULSE 101–185; RESP 7–26
[2016-08-05] MEDS: INSULIN ASPART [NOVOLOG] 3 ML PEN SC SCH ×6 (00:49→21:26)
[2016-08-05] MEDS: MIDAZOLAM (DRIP) 50 mg/50 mL 50 ML IV SCH ×3 (03:10→22:51)
[2016-08-05 05:15] LABS: BASOPHILS % 0.2 % (0.0-2.0); EOSINOPHILS % 0.1 % (0.0-7.0); HEMATOCRIT 28.1 % (37.0-47.0); HEMOGLOBIN 9.4 g/dl (12.0-16.0); LYMPHOCYTES # 1.4 10^3/ul (0.8-2.9); LYMPHOCYTES % 5.9 % (15.0-51.0); MEAN CORPUSCULAR HEMOGLOBIN 30.3 pg (29.0-33.0); MEAN CORPUSCULAR HGB CONC 33.4 g/dl (32.0-37.0); MEAN CORPUSCULAR VOLUME 90.7 fl (82.0-101.0); MONOCYTE # 0.9 10^3/ul (0.3-0.9); MONOCYTES % 3.7 % (0.0-11.0); NEUTROPHIL # 20.7 10^3/ul (1.6-7.5); NEUTROPHILS % 90.1 % (39.0-77.0); PLATELET COUNT 178 10^3/UL (140-440); RED BLOOD COUNT 3.09 10^6/ul (4.20-5.40)
[2016-08-05 05:24] LABS: CONDITION 1; LH ANALYZER COMMENTS 1; SUSPECT 1
[2016-08-05] MEDS: PIPER-TAZO 2.25 GM (PMX) 50 ML IVPB SCH ×3 (05:41→21:01)
[2016-08-05 07:04] LABS: POTASSIUM 3.9 mmol/L (3.5-5.1)
[2016-08-05 07:06] LABS: CREATININE 1.77 mg/dl (0.44-1.00)
[2016-08-05 07:07] LABS: CALCIUM 8.5 mg/dl (8.4-10.2)
--- NOTE | 2016-08-05 07:57 | CONS ---
Date/Time of Note Date/Time of Note DATE: 08/05/16 TIME: 07:52 Assessment/Plan Assessment/Plan Additional Assessment/Plan Ventilator settings are AC of 14, tidal volume 500, PEEP of 5, 80% FiO2. Assessment and recommendations; next 1. Patient admitted with severe congestive heart failure likely from antecedent [place]. The patient was having shortness of breath several days prior to admission. 2. Status post along CPR. Degree of anoxic brain injury is undetermined at this point. 3. Severe pulmonary edema on presentation, however there was interval improvement from yesterday's chest x-ray. X-ray from today is pending. 4. Worsening renal function. With very poor urine output. 5. Cardiac arrhythmia; currently maintained on lidocaine drip. 6. Significant leukocytosis, element of aspiration pneumonia cannot be ruled out. Patient currently on Zosyn. Continue current treatment. Obtain a chest x-ray. As well as an ABG. Once both studies are done I will reevaluate the patient. There is no improvement in renal output patient will need to have a nephrology consult. The patient is too unstable to undergo any imaging studies of the brain. I did have a very detailed discussion the patient's 2 sons at bedside and answered all their questions. An arterial line placement was discussed with the family and they refused. Next Prognosis is guarded. Consultation Date/Type/Reason Admit Date/Time Aug 03, 2016 at 04:29 Initial Consult Date 08/04/16 Type of Consultation: Pulmonary/critical care Referring Provider: JEREMIAH ACEVEDO MD 24 HR Interval Summary Free Text/Dictation Patient condition remains very critical. The patient had cardiac arrest event yesterday afternoon requiring CPR with revival of vital signs. Currently or intubated, sedated, currently in no distress. Still requiring Levophed for blood pressure maintenance. Next General examination; elderly lady, or intubated, sedated. Exam/Review of Systems Vital Signs Vitals Vital Signs Date Time Temp Pulse Resp B/P Pulse Ox O2 Delivery O2 Flow Rate FiO2 08/05/16 05:45 126 16 103/64 100 08/05/16 05:10 80 08/05/16 05:00 Mechanical Ventilator 08/05/16 04:30 99.8 Intake and Output 08/04/16 08/04/16 08/05/16 15:00 23:00 07:00 Intake Total 1967.09 ml 660.41 ml 504.45 ml Output Total 1120 ml 720 ml 530 ml Balance 847.09 ml -59.59 ml -25.55 ml Exam H EENT examination; supple neck, positive JVD. No lymphadenopathy. Pupils are small bilaterally. No neck masses. No thyromegaly. No lymphadenopathy. Chest examination; diminished breath sounds bilaterally. S1-S2 audible. No murmurs. Regular rhythm. Abdomen examination; soft, no organomegaly. Bowel sounds are sluggish. Extremity examination; no peripheral edema. SUBSTATION DESIGNER examination; patient is currently sedated. Results Result Diagram: 08/05/16 0400 08/05/16 0530 Results 24 hrs Laboratory Tests Test 08/04/16 08:55 08/04/16 11:54 08/04/16 12:09 08/04/16 12:20 Bedside Glucose 216 399 H Arterial Blood HCO3 16.1 L Arterial Blood Base Excess -8.7 L Arterial Blood Oxygen Saturation 95.9 Morteza Test ACCEPTAB Arterial Blood Gas Puncture Site Left Radial Arterial Blood Carboxyhemoglobin 0.3 Arterial Blood Date Drawn 08/04/2016 12:25:49 PM Arterial Blood Methemoglobin 0.4 Arterial Blood pCO2 (Temp correct) 31.3 L Arterial Blood pH (Temp corrected) 7.330 L Arterial Blood pO2 (Temp corrected) 89.6 Blood Gas A-a O2 Differential 592.1 H Blood Gas Actual Respiration Rate 36 Blood Gas Low PEEP Setting 5.0 Blood Gas Modality VENT - AC Blood Gas Notified Time 08/04/2016 12:34:31 PM Blood Gas Notified Whom JLD Blood Gas Respiration Rate 14.0 Blood Gas Specimen Source Blood arterial Blood Gas Temperature 37.0 Blood Gas Tidal Volume 500.0 FiO2 100.0 Oxyhemoglobin Percent 95.2 Total Hemoglobin 11.9 L Anion Gap 20 H B-Type Natriuretic Peptide 08116 H Basophils # 0.1 Basophils % 0.3 Blood Morphology Comment Blood Urea Nitrogen 44 H Calcium Level 9.1 Carbon Dioxide Level 17 L Chloride Level 107 Creatinine 1.56 H Eosinophils # 0.1 Eosinophils % 0.4 Glucose Level 255 H Hematocrit 30.6 L Hemoglobin 10.0 L Lymphocytes # 3.4 H Lymphocytes % 18.5 Magnesium Level 4.7 #H Mean Corpuscular Hemoglobin 29.8 Mean Corpuscular Hemoglobin Concent 32.7 Mean Corpuscular Volume 91.2 Mean Platelet Volume 11.2 H Monocytes # 0.7 Monocytes % 3.7 Neutrophils # 14.2 H Neutrophils % 77.1 H Nucleated Red Blood Cells # 0.0 Nucleated Red Blood Cells % 0.0 Platelet Count 197 Potassium Level 3.1 L Red Blood Count 3.35 L Red Cell Distribution Width 15.6 H Sodium Level 141 White Blood Count 18.4 #H Test 08/04/16 12:47 08/04/16 14:05 08/04/16 17:31 08/04/16 21:23 Bedside Glucose 243 H 199 172 Activated Partial Thromboplast Time 38.5 H Creatine Kinase 607 H Creatine Kinase Index 0.6 Creatinine Kinase MB (Mass) 3.39 H Troponin I 0.234 *H Test 08/05/16 00:46 08/05/16 04:00 08/05/16 05:30 08/05/16 05:42 Bedside Glucose 187 175 Basophils # 0.0 Basophils % 0.2 Blood Morphology Comment Eosinophils # 0.0 Eosinophils % 0.1 Hematocrit 28.1 L Hemoglobin 9.4 L Lymphocytes # 1.4 Lymphocytes % 5.9 L Mean Corpuscular Hemoglobin 30.3 Mean Corpuscular Hemoglobin Concent 33.4 Mean Corpuscular Volume 90.7 Mean Platelet Volume 12.0 H Monocytes # 0.9 Monocytes % 3.7 Neutrophils # 20.7 H Neutrophils % 90.1 H Nucleated Red Blood Cells # 0.0 Nucleated Red Blood Cells % 0.0 Platelet Count 178 Red Blood Count 3.09 L Red Cell Distribution Width 16.0 H White Blood Count 23.0 #H Anion Gap 17 H Blood Urea Nitrogen 47 H Calcium Level 8.5 Carbon Dioxide Level 21 Chloride Level 108 Creatinine 1.77 H Glucose Level 182 Potassium Level 3.9 Sodium Level 142 Medications Medications Current Medications Piperacillin Sod/ Tazobactam Sod (Zosyn 2.25gm/ 50ml (Pmx)) 50 ml @ 100 mls/hr Q8 IVPB Last administered on 08/05/16 05:41; Admin Dose 100 MLS/HR; Start at 06:00 Aspirin (Aspirin) 81 mg DAILY NGT Last administered on 08/04/16 08:58; Admin Dose 81 MG; Start 08/03/16 at 09:00 Famotidine 20 mg 20 mg DAILY IV Last administered on 08/04/16 08:58; Admin Dose 20 MG; Start 08/03/16 at 09:00 Fentanyl (Sublimaze) 100 ml @ 5 mls/hr TITRATE IV Last administered on 07:54; Admin Dose 2.5 MLS/HR; Start 08/03/16 at 10:00 IV Flush (NS 10 ml) 10 ml PRN PRN IV IV PROTOCOL; Start 08/03/16 at 16:30 Atorvastatin Calcium (Lipitor) 80 mg HS NGT Last administered on 08/04/16 21:17 ; Admin Dose 80 MG; Start 08/03/16 at 21:00 Acetaminophen 650 mg 650 mg Q6H PRN NGT PAIN AND OR ELEVATED TEMP Last administered on 08/03/16 22:08; Admin Dose 650 MG; Start 08/03/16 at 22:00 Midazolam HCl (Versed) 50 ml @ 1 mls/hr TITRATE IV Last administered on 03:10; Admin Dose 5 MLS/HR; Start 08/03/16 at 22:15 Insulin Aspart (Novolog Insulin Pen) NOVOLOG *MODERATE* ALGORI... Q4 SC Last administered on 08/05/16 05:45; Admin Dose 2 UNIT; Start 08/04/16 at 13:00 Miscellaneous Information 1 ea NOTE XX ; Start 08/04/16 at 09:30 Glucose (Glutose) 15 gm Q15M PRN PO DECREASED GLUCOSE; Start 08/04/16 at 09:30 Glucose (Glutose) 22.5 gm Q15M PRN PO DECREASED GLUCOSE; Start 08/04/16 at 09:30 Dextrose (D50w Syringe) 25 ml Q15M PRN IV DECREASED GLUCOSE; Start 08/04/16 at 09:30 Dextrose (D50w Syringe) 50 ml Q15M PRN IV DECREASED GLUCOSE; Start 08/04/16 at 09:30 Glucagon (Glucagen) 1 mg Q15M PRN IM DECREASED GLUCOSE; Start 08/04/16 at 09:30 Glucose 15 gm 15 gm Q15M PRN BUCCAL DECREASED GLUCOSE; Start 08/04/16 at 09:30 Lidocaine HCl/ Dextrose 500 ml @ 15 mls/hr Q24H IV Last administered on 14:05; Admin Dose 15 MLS/HR; Start 08/04/16 at 13:00 Potassium Chloride/Sodium Chloride 1,000 ml @ 20 mls/hr Q24H IV Last administered on 08/04/16 13:41; Admin Dose 20 MLS/HR; Start 08/04/16 at 13:30 Norepinephrine/ Dextrose (Levophed/D5W) 500 ml @ 1.87 mls/hr TITRATE IV Last administered on 08/05/16 00:53; Admin Dose 22.5 MLS/HR; Start 08/04/16 at 16:30 CORI TROY Aug 05, 2016 07:57
[2016-08-05 08:21] LABS: AADO2 Arterial 288.2 mmHg (7.0-24.0); Allen Test ACCEPTAB; Arterial Base Excess -5.3 mmol/L (-3.0-3); Arterial COHb 0.3 % (0.0-3.0); Arterial Fraction of Oxyhgb 98.4 % (93.0-99.0); Arterial HCO3 18.7 mmol/L (22.0-26.0); Arterial MetHb 0.4 % (0.0-1.5); MODE VENT - AC
[2016-08-05] MEDS: ASPIRIN 81 MG TAB NGT SCH (08:33)
[2016-08-05] MEDS: FAMOTIDINE 20 MG INJ IV SCH (08:33)
--- NOTE | 2016-08-05 08:48 | PN ---
Date/Time of Note Date/Time of Note DATE: 08/05/16 TIME: 08:48 Assessment/Plan VTE Prophylaxis VTE Prophylaxis Intervention: SCD's Lines/Catheters IV Catheter Type (from Nrsg): PICC Line Central line still needed: Yes Urinary Cath still in place: Yes Reason Cath still needed: urinary retention, terminal illness/intractable pain Assessment/Plan Assessment/Plan 1. Acute hypoxemic resp failure currently vent dependent 2/2 #2 - continue with weaning as tolerated, Pulm c/s appreciated. - still worsening 2. Severe Acute CHF with pulmonary edema - improving, continue cardiology recs - lasix prn, EF 35%, stage II diastolic dysfunction * Impending shock, ?cardiogenic - continue with pressor support - wean as tolerated 3. NSTEMI - 2/2 to cardiac arrest - monitor trend, on heparin 4. Acute renal insufficiency - monitor acute changes, renally adjust medications , as per clinical course. - worsening from ATN 5. Anion gap metabolic acidosis / #4 - monitor - on bicarb drip - wean as tolerated 6. DM 2: uncontrolled - insulin gtt, hgba1c 6.5 7. SIRS vs Sepsis from probable underlying Pneumonia - aspiration - continue with antibiotics, continue with pressor support - worsening leukocytosis 8. Acute Encephalopathy R/o CVA - will wait for MRI - once patient is more clinically stable 9. HTN essential - * Patient came in uncontrolled > borderline hypotensive - on dopamine 10. GI ppx - protonix 11. DVT ppx - heparin dispo - f/u recs, monitor acute changes, continue with ABG, labs, as per clinical course - prognosis - poor this critical care note took greater than 1 hour to complete Subjective 24 Hr Interval Summary Free Text/Dictation Patient had multiple code blues yesterday. She had ROSC every time. I had spoken to the patient's son's, at bedside, about the care plan. They understand that she is on the threshold of declining rapidly. 45 minutes spent. Exam/Review of Systems Vital Signs Vitals Vital Signs Date Time Temp Pulse Resp B/P Pulse Ox O2 Delivery O2 Flow Rate FiO2 08/05/16 05:45 126 16 103/64 100 08/05/16 05:10 80 08/05/16 05:00 Mechanical Ventilator 08/05/16 04:30 99.8 Intake and Output 08/04/16 08/04/1617 15:00 23:00 07:00 Intake Total 1967.09 ml 660.41 ml 504.45 ml Output Total 1120 ml 720 ml 530 ml Balance 847.09 ml -59.59 ml -25.55 ml Exam Gen Doris: intubated and sedated HEENT: NC/AT, PERRLA, ETT NECK: supple, no thyromegaly THORAX: symmetrical, no obvious deformities CV: S1S2, tachycardiac, III/ systolic murmur Lungs: coarse breath sounds, worsening scattered crackles Abd: soft, NT/ND, +BS, no rebound, no guarding, neg HSM EXT: 2+ bilateral lower extremity edema, no ecchymosis, no clubbing, onychomycosis Neuro: intubated, sedated Psych: cannot assess Skin: decreased turgor Results Result Diagram: 08/05/16 0400 08/05/16 0530 Results 24 hrs Laboratory Tests Test 08/04/16 08:55 08/04/16 11:54 08/04/16 12:09 08/04/16 12:20 Bedside Glucose 216 399 H Arterial Blood HCO3 16.1 L Arterial Blood Base Excess -8.7 L Arterial Blood Oxygen Saturation 95.9 Morteza Test ACCEPTAB Arterial Blood Gas Puncture Site Left Radial Arterial Blood Carboxyhemoglobin 0.3 Arterial Blood Date Drawn 08/04/2016 12:25:49 PM Arterial Blood Methemoglobin 0.4 Arterial Blood pCO2 (Temp correct) 31.3 L Arterial Blood pH (Temp corrected) 7.330 L Arterial Blood pO2 (Temp corrected) 89.6 Blood Gas A-a O2 Differential 592.1 H Blood Gas Actual Respiration Rate 36 Blood Gas Low PEEP Setting 5.0 Blood Gas Modality VENT - AC Blood Gas Notified Time 08/04/2016 12:34:31 PM Blood Gas Notified Whom JLD Blood Gas Respiration Rate 14.0 Blood Gas Specimen Source Blood arterial Blood Gas Temperature 37.0 Blood Gas Tidal Volume 500.0 FiO2 100.0 Oxyhemoglobin Percent 95.2 Total Hemoglobin 11.9 L Anion Gap 20 H B-Type Natriuretic Peptide 56450 H Basophils # 0.1 Basophils % 0.3 Blood Morphology Comment Blood Urea Nitrogen 44 H Calcium Level 9.1 Carbon Dioxide Level 17 L Chloride Level 107 Creatinine 1.56 H Eosinophils # 0.1 Eosinophils % 0.4 Glucose Level 255 H Hematocrit 30.6 L Hemoglobin 10.0 L Lymphocytes # 3.4 H Lymphocytes % 18.5 Magnesium Level 4.7 #H Mean Corpuscular Hemoglobin 29.8 Mean Corpuscular Hemoglobin Concent 32.7 Mean Corpuscular Volume 91.2 Mean Platelet Volume 11.2 H Monocytes # 0.7 Monocytes % 3.7 Neutrophils # 14.2 H Neutrophils % 77.1 H Nucleated Red Blood Cells # 0.0 Nucleated Red Blood Cells % 0.0 Platelet Count 197 Potassium Level 3.1 L Red Blood Count 3.35 L Red Cell Distribution Width 15.6 H Sodium Level 141 White Blood Count 18.4 #H Test 08/04/16 12:47 08/04/16 14:05 08/04/16 17:31 08/04/16 21:23 Bedside Glucose 243 H 199 172 Activated Partial Thromboplast Time 38.5 H Creatine Kinase 607 H Creatine Kinase Index 0.6 Creatinine Kinase MB (Mass) 3.39 H Troponin I 0.234 *H Test 08/05/16 00:46 08/05/16 04:00 08/05/16 05:30 08/05/16 05:42 Bedside Glucose 187 175 Basophils # 0.0 Basophils % 0.2 Blood Morphology Comment Eosinophils # 0.0 Eosinophils % 0.1 Hematocrit 28.1 L Hemoglobin 9.4 L Lymphocytes # 1.4 Lymphocytes % 5.9 L Mean Corpuscular Hemoglobin 30.3 Mean Corpuscular Hemoglobin Concent 33.4 Mean Corpuscular Volume 90.7 Mean Platelet Volume 12.0 H Monocytes # 0.9 Monocytes % 3.7 Neutrophils # 20.7 H Neutrophils % 90.1 H Nucleated Red Blood Cells # 0.0 Nucleated Red Blood Cells % 0.0 Platelet Count 178 Red Blood Count 3.09 L Red Cell Distribution Width 16.0 H White Blood Count 23.0 #H Anion Gap 17 H Blood Urea Nitrogen 47 H Calcium Level 8.5 Carbon Dioxide Level 21 Chloride Level 108 Creatinine 1.77 H Glucose Level 182 Magnesium Level 2.9 #H Potassium Level 3.9 Sodium Level 142 Test 08/05/16 07:31 08/05/16 08:32 Arterial Blood HCO3 18.7 L Arterial Blood Base Excess -5.3 L Arterial Blood Oxygen Saturation 99.1 Morteza Test ACCEPTAB Arterial Blood Gas Puncture Site Right Radial Arterial Blood Carboxyhemoglobin 0.3 Arterial Blood Date Drawn 08/05/2016 7:40:17 AM Arterial Blood Methemoglobin 0.4 Arterial Blood pCO2 (Temp correct) 31.2 L Arterial Blood pH (Temp corrected) 7.396 Arterial Blood pO2 (Temp corrected) 249.4 H Blood Gas A-a O2 Differential 288.2 H Blood Gas Actual Respiration Rate 17 Blood Gas Low PEEP Setting 5.0 Blood Gas Modality VENT - AC Blood Gas Notified Time 08/05/2016 8:20:31 AM Blood Gas Notified Whom JLD Blood Gas Respiration Rate 14.0 Blood Gas Specimen Source Blood arterial Blood Gas Temperature 37.0 Blood Gas Tidal Volume 500.0 FiO2 80.0 Oxyhemoglobin Percent 98.4 Total Hemoglobin 10.0 L Bedside Glucose 158 Medications Medications Current Medications Piperacillin Sod/ Tazobactam Sod (Zosyn 2.25gm/ 50ml (Pmx)) 50 ml @ 100 mls/hr Q8 IVPB Last administered on 08/05/16 05:41; Admin Dose 100 MLS/HR; Start at 06:00 Aspirin (Aspirin) 81 mg DAILY NGT Last administered on 08/05/16 08:33; Admin Dose 81 MG; Start 08/03/16 at 09:00 Famotidine 20 mg 20 mg DAILY IV Last administered on 08/05/16 08:33; Admin Dose 20 MG; Start 08/03/16 at 09:00 Fentanyl (Sublimaze) 100 ml @ 5 mls/hr TITRATE IV Last administered on 07:54; Admin Dose 2.5 MLS/HR; Start 08/03/16 at 10:00 IV Flush (NS 10 ml) 10 ml PRN PRN IV IV PROTOCOL; Start 08/03/16 at 16:30 Atorvastatin Calcium (Lipitor) 80 mg HS NGT Last administered on 08/04/16 21:17 ; Admin Dose 80 MG; Start 08/03/16 at 21:00 Acetaminophen 650 mg 650 mg Q6H PRN NGT PAIN AND OR ELEVATED TEMP Last administered on 08/03/16 22:08; Admin Dose 650 MG; Start 08/03/16 at 22:00 Midazolam HCl (Versed) 50 ml @ 1 mls/hr TITRATE IV Last administered on 03:10; Admin Dose 5 MLS/HR; Start 08/03/16 at 22:15 Insulin Aspart (Novolog Insulin Pen) NOVOLOG *MODERATE* ALGORI... Q4 SC Last administered on 08/05/16 08:43; Admin Dose 2 UNIT; Start 08/04/16 at 13:00 Miscellaneous Information 1 ea NOTE XX ; Start 08/04/16 at 09:30 Glucose (Glutose) 15 gm Q15M PRN PO DECREASED GLUCOSE; Start 08/04/16 at 09:30 Glucose (Glutose) 22.5 gm Q15M PRN PO DECREASED GLUCOSE; Start 08/04/16 at 09:30 Dextrose (D50w Syringe) 25 ml Q15M PRN IV DECREASED GLUCOSE; Start 08/04/16 at 09:30 Dextrose (D50w Syringe) 50 ml Q15M PRN IV DECREASED GLUCOSE; Start 08/04/16 at 09:30 Glucagon (Glucagen) 1 mg Q15M PRN IM DECREASED GLUCOSE; Start 08/04/16 at 09:30 Glucose 15 gm 15 gm Q15M PRN BUCCAL DECREASED GLUCOSE; Start 08/04/16 at 09:30 Lidocaine HCl/ Dextrose 500 ml @ 15 mls/hr Q24H IV Last administered on 14:05; Admin Dose 15 MLS/HR; Start 08/04/16 at 13:00 Potassium Chloride/Sodium Chloride 1,000 ml @ 20 mls/hr Q24H IV Last administered on 08/04/16 13:41; Admin Dose 20 MLS/HR; Start 08/04/16 at 13:30 Norepinephrine/ Dextrose (Levophed/D5W) 500 ml @ 1.87 mls/hr TITRATE IV Last administered on 08/05/16 00:53; Admin Dose 22.5 MLS/HR; Start 08/04/16 at 16:30 JEREMIAH ACEVEDO MD Aug 05, 2016 08:48
--- NOTE | 2016-08-05 08:53 | RADRPT ---
PROCEDURE: XR Chest. CLINICAL INDICATION: Pulmonary edema TECHNIQUE: Single frontal chest x-ray. COMPARISON: 08/04/2016 FINDINGS: Endotracheal tube, nasogastric tube, and left-sided PICC line remain in place. There is stable mode rate cardiomegaly and pulmonary vascular congestion/edema. Hazy bibasilar pulmonary opacities are a gain noted, grossly stable. No pneumothorax is identified. The osseous structures are remarkable f or degenerative spondylosis of the spine. IMPRESSION: 1. Lines and tubes remain in place. 2. There is stable moderate cardiomegaly and pulmonary vascular congestion/edema. 3. Hazy bibasilar pulmonary opacities are grossly unchanged, likely atelectasis and/or mild to mode rate pleural effusions. RPTAT: QQ .Luis Eduardo Saldivar MD, Date Time Electronically viewed and signed by .Luis Eduardo Saldivar MD, on 08/05/2016 08:53 .R/
[2016-08-05] MEDS: MUPIROCIN 2% 22 GM OINT TOP SCH ×2 (11:14→20:44)
--- NOTE | 2016-08-05 11:47 | RADRPT ---
Vent Rate: 130 bpm RR Interval: 0 msec NC Interval: 144 msec QRS Duration: 146 msec QT Interval: 356 msec QTC Interval: 523 msec P-R-T [place]: 0 - 11 - 146 degrees Sinus tachycardia Left bundle branch block Abnormal ECG Electronically Signed By: Olivier Ortez [id number]
--- NOTE | 2016-08-05 11:47 | RADRPT ---
Vent Rate: 113 bpm RR Interval: 0 msec DE Interval: 0 msec QRS Duration: 144 msec QT Interval: 330 msec QTC Interval: 452 msec P-R-T [place]: 0 - 7 - 158 degrees Atrial fibrillation with rapid ventricular response Nonspecific intraventricular block T wave abnormality, consider lateral ischemia or digitalis effect Abnormal ECG Electronically Signed By: Olivier Ortez [id number]
[2016-08-05] MEDS: FENTAnyl (DRIP) 1000 mcg/100mL 100 ML IV SCH (12:38)
[2016-08-05] MEDS: LIDOCAINE 2 GM/D5W 500 ML IV SCH ×2 (13:00→15:07)
[2016-08-05] MEDS: NS + KCL 20 MEQ 1,000 ML IV SCH (13:30)
--- NOTE | 2016-08-05 13:45 | CONS ---
Date/Time of Note Date/Time of Note DATE: 08/05/16 TIME: 13:43 Assessment/Plan Assessment/Plan Additional Assessment/Plan 1. Acute kidney injury versus acute kidney injury on chronic kidney disease secondary to cardiorenal syndrome. 2. Acute congestive heart failure exacerbation with pulmonary edema. 3. SHOCK on two pressors 4. Metabolic acidosis with a bicarbonate of 12. On chemistry, her blood gas shows a pH of 7.29. 5. History of hypertension. 6. History of diabetes mellitus. 7. History of hypothyroidism. 8. Acute hypoxemic respiratory failure, currently intubated secondary to acute pulmonary edema. 9. Non-ST elevation myocardial infarction. 10. Severe acute CHF with pulmonary edema. 11. Anion gap metabolic acidosis secondary to acute renal failure. 12. Systemic inflammatory response syndrome versus sepsis from probable underlying pneumonia. 13. Acute encephalopathy, multifactorial. PLAN: on two pressors, Cr stable, good urine output in last 24 hour will follow up Need discussiion with family about code status and futher advance directive Consultation Date/Type/Reason Admit Date/Time Aug 03, 2016 at 04:29 Initial Consult Date 08/04/16 Type of Consultation: NEPHROLOGY Referring Provider: JEREMIAH ACEVEDO MD 24 HR Interval Summary Free Text/Dictation pt had a Code blue [place], critically ill, Cr stable Exam/Review of Systems Vital Signs Vitals Vital Signs Date Time Temp Pulse Resp B/P Pulse Ox O2 Delivery O2 Flow Rate FiO2 08/05/16 13:00 45 08/05/16 12:00 98.6 133 15 95/51 100 Mechanical Ventilator Intake and Output 08/04/16 08/04/16 08/05/16 15:00 23:00 07:00 Intake Total 1967.09 ml 660.41 ml 566.95 ml Output Total 1120 ml 720 ml 530 ml Balance 847.09 ml -59.59 ml 36.95 ml Results Result Diagram: 08/05/16 0400 08/05/16 0530 Results 24 hrs Laboratory Tests Test 08/04/16 14:05 08/04/16 17:31 08/04/16 21:23 08/05/16 00:46 Activated Partial Thromboplast Time 38.5 H Creatine Kinase 607 H Creatine Kinase Index 0.6 Creatinine Kinase MB (Mass) 3.39 H Troponin I 0.234 *H Bedside Glucose 199 172 187 Test 08/05/16 04:00 08/05/16 05:30 08/05/16 05:42 08/05/16 07:31 Basophils # 0.0 Basophils % 0.2 Blood Morphology Comment Eosinophils # 0.0 Eosinophils % 0.1 Hematocrit 28.1 L Hemoglobin 9.4 L Lymphocytes # 1.4 Lymphocytes % 5.9 L Mean Corpuscular Hemoglobin 30.3 Mean Corpuscular Hemoglobin Concent 33.4 Mean Corpuscular Volume 90.7 Mean Platelet Volume 12.0 H Monocytes # 0.9 Monocytes % 3.7 Neutrophils # 20.7 H Neutrophils % 90.1 H Nucleated Red Blood Cells # 0.0 Nucleated Red Blood Cells % 0.0 Platelet Count 178 Red Blood Count 3.09 L Red Cell Distribution Width 16.0 H White Blood Count 23.0 #H Anion Gap 17 H Blood Urea Nitrogen 47 H Calcium Level 8.5 Carbon Dioxide Level 21 Chloride Level 108 Creatinine 1.77 H Glucose Level 182 Magnesium Level 2.9 #H Potassium Level 3.9 Sodium Level 142 Bedside Glucose 175 Arterial Blood HCO3 18.7 L Arterial Blood Base Excess -5.3 L Arterial Blood Oxygen Saturation 99.1 Morteza Test ACCEPTAB Arterial Blood Gas Puncture Site Right Radial Arterial Blood Carboxyhemoglobin 0.3 Arterial Blood Date Drawn 08/05/2016 7:40:17 AM Arterial Blood Methemoglobin 0.4 Arterial Blood pCO2 (Temp correct) 31.2 L Arterial Blood pH (Temp corrected) 7.396 Arterial Blood pO2 (Temp corrected) 249.4 H Blood Gas A-a O2 Differential 288.2 H Blood Gas Actual Respiration Rate 17 Blood Gas Low PEEP Setting 5.0 Blood Gas Modality VENT - AC Blood Gas Notified Time 08/05/2016 8:20:31 AM Blood Gas Notified Whom JLD Blood Gas Respiration Rate 14.0 Blood Gas Specimen Source Blood arterial Blood Gas Temperature 37.0 Blood Gas Tidal Volume 500.0 FiO2 80.0 Oxyhemoglobin Percent 98.4 Total Hemoglobin 10.0 L Test 08/05/16 08:32 08/05/16 12:38 Bedside Glucose 158 174 Medications Medications Current Medications Piperacillin Sod/ Tazobactam Sod (Zosyn 2.25gm/ 50ml (Pmx)) 50 ml @ 100 mls/hr Q8 IVPB Last administered on 08/05/16t 13:39; Admin Dose 100 MLS/HR; Start at 06:00 Aspirin (Aspirin) 81 mg DAILY NGT Last administered on 08/05/16 08:33; Admin Dose 81 MG; Start 08/03/16 at 09:00 Famotidine 20 mg 20 mg DAILY IV Last administered on 08/05/16 08:33; Admin Dose 20 MG; Start 08/03/16 at 09:00 Fentanyl (Sublimaze) 100 ml @ 5 mls/hr TITRATE IV Last administered on 12:38; Admin Dose 5 MLS/HR; Start 08/03/16 at 10:00 IV Flush (NS 10 ml) 10 ml PRN PRN IV IV PROTOCOL; Start 08/03/16 at 16:30 Atorvastatin Calcium (Lipitor) 80 mg HS NGT Last administered on 08/04/16 21:17 ; Admin Dose 80 MG; Start 08/03/16 at 21:00 Acetaminophen 650 mg 650 mg Q6H PRN NGT PAIN AND OR ELEVATED TEMP Last administered on 08/03/16 22:08; Admin Dose 650 MG; Start 08/03/16 at 22:00 Midazolam HCl (Versed) 50 ml @ 1 mls/hr TITRATE IV Last administered on 12:39; Admin Dose 5 MLS/HR; Start 08/03/16 at 22:15 Insulin Aspart (Novolog Insulin Pen) NOVOLOG *MODERATE* ALGORI... Q4 SC Last administered on 08/05/16 12:43; Admin Dose 2 UNIT; Start 08/04/16 at 13:00 Miscellaneous Information 1 ea NOTE XX ; Start 08/04/16 at 09:30 Glucose (Glutose) 15 gm Q15M PRN PO DECREASED GLUCOSE; Start 08/04/16 at 09:30 Glucose (Glutose) 22.5 gm Q15M PRN PO DECREASED GLUCOSE; Start 08/04/16 at 09:30 Dextrose (D50w Syringe) 25 ml Q15M PRN IV DECREASED GLUCOSE; Start 08/04/16 at 09:30 Dextrose (D50w Syringe) 50 ml Q15M PRN IV DECREASED GLUCOSE; Start 08/04/16 at 09:30 Glucagon (Glucagen) 1 mg Q15M PRN IM DECREASED GLUCOSE; Start 08/04/16 at 09:30 Glucose 15 gm 15 gm Q15M PRN BUCCAL DECREASED GLUCOSE; Start 08/04/16 at 09:30 Lidocaine HCl/ Dextrose 500 ml @ 15 mls/hr Q24H IV Last administered on 14:05; Admin Dose 15 MLS/HR; Start 08/04/16 at 13:00 Potassium Chloride/Sodium Chloride 1,000 ml @ 20 mls/hr Q24H IV Last administered on 08/04/16 13:41; Admin Dose 20 MLS/HR; Start 08/04/16 at 13:30 Norepinephrine/ Dextrose (Levophed/D5W) 500 ml @ 1.87 mls/hr TITRATE IV Last administered on 08/05/16 00:53; Admin Dose 22.5 MLS/HR; Start 08/04/16 at 16:30 Mupirocin (Bactroban) 1 applic BID TOP Last administered on 08/05/16 11:14; Admin Dose 1 APPLIC; Start 08/05/16 at 11:00; Stop 08/10/16 at 10:59 CARYN GALVEZ MD Aug 05, 2016 13:45
--- NOTE | 2016-08-05 14:22 | CONS ---
Date/Time of Note Date/Time of Note DATE: 08/05/16 TIME: 14:19 Assessment/Plan Assessment/Plan Additional Assessment/Plan Left-sided weakness concerning for CVA Cardiac arrest Respiratory failure Acute decompensated systolic congestive heart failure Cardiomyopathy with ejection fraction 35% Paroxysmal atrial fibrillation with rapid ventricular rates Diabetes Mildly elevated troponin Acute kidney injury -Continue IV pressor to maintain SBP greater than 90 and/or map greater than 60. Patient currently on lidocaine given arrhythmias including torsades. Troponins were minimally elevated likely secondary to heart failure and respiratory failure. Given patient underwent chest compressions and prolonged cardiac arrest with bloody secretions from the tracheal tube, heparin has been stopped. Continue aspirin and statin therapy. No MERCEDES inhibitor or beta- donald at the current time. Patient's critical prognosis discussed with the patient's 2 sons at bedside as well as discussed with the family regarding CODE STATUS. Consultation Date/Type/Reason Admit Date/Time Aug 03, 2016 at 04:29 Initial Consult Date 08/04/16 Type of Consultation: cv Referring Provider: JEREMIAH ACEVEDO MD 24 HR Interval Summary Free Text/Dictation Patient with less pressor requirements, heart rate remains elevated Exam/Review of Systems Vital Signs Vitals Vital Signs Date Time Temp Pulse Resp B/P Pulse Ox O2 Delivery O2 Flow Rate FiO2 08/05/16 13:00 45 08/05/16 12:00 98.6 133 15 95/51 100 Mechanical Ventilator Intake and Output 08/04/16 08/04/16 08/05/16 15:00 23:00 07:00 Intake Total 1967.09 ml 660.41 ml 566.95 ml Output Total 1120 ml 720 ml 530 ml Balance 847.09 ml -59.59 ml 36.95 ml Exam Sedated and intubated Head: normocephalic ENMT: intubated Respiratory: other (Coarse breath sounds bilaterally with scattered crackles, no wheezing) Cardiovascular: irregular rhythm, other (S1-S2 heard), systolic murmur Gastrointestinal: bowel sounds, non-tender, other (No grimacing with palpation) , soft Extremities: edema Results Result Diagram: 08/05/16 0400 08/05/16 0530 Results 24 hrs Laboratory Tests Test 08/04/16 17:31 08/04/16 21:23 08/05/16 00:46 08/05/16 04:00 Bedside Glucose 199 172 187 Basophils # 0.0 Basophils % 0.2 Blood Morphology Comment Eosinophils # 0.0 Eosinophils % 0.1 Hematocrit 28.1 L Hemoglobin 9.4 L Lymphocytes # 1.4 Lymphocytes % 5.9 L Mean Corpuscular Hemoglobin 30.3 Mean Corpuscular Hemoglobin Concent 33.4 Mean Corpuscular Volume 90.7 Mean Platelet Volume 12.0 H Monocytes # 0.9 Monocytes % 3.7 Neutrophils # 20.7 H Neutrophils % 90.1 H Nucleated Red Blood Cells # 0.0 Nucleated Red Blood Cells % 0.0 Platelet Count 178 Red Blood Count 3.09 L Red Cell Distribution Width 16.0 H White Blood Count 23.0 #H Test 08/05/16 05:30 08/05/16 05:42 08/05/16 07:31 08/05/16 08:32 Anion Gap 17 H Blood Urea Nitrogen 47 H Calcium Level 8.5 Carbon Dioxide Level 21 Chloride Level 108 Creatinine 1.77 H Glucose Level 182 Magnesium Level 2.9 #H Potassium Level 3.9 Sodium Level 142 Bedside Glucose 175 158 Arterial Blood HCO3 18.7 L Arterial Blood Base Excess -5.3 L Arterial Blood Oxygen Saturation 99.1 Morteza Test ACCEPTAB Arterial Blood Gas Puncture Site Right Radial Arterial Blood Carboxyhemoglobin 0.3 Arterial Blood Date Drawn 08/05/2016 7:40:17 AM Arterial Blood Methemoglobin 0.4 Arterial Blood pCO2 (Temp correct) 31.2 L Arterial Blood pH (Temp corrected) 7.396 Arterial Blood pO2 (Temp corrected) 249.4 H Blood Gas A-a O2 Differential 288.2 H Blood Gas Actual Respiration Rate 17 Blood Gas Low PEEP Setting 5.0 Blood Gas Modality VENT - AC Blood Gas Notified Time 08/05/2016 8:20:31 AM Blood Gas Notified Whom JLD Blood Gas Respiration Rate 14.0 Blood Gas Specimen Source Blood arterial Blood Gas Temperature 37.0 Blood Gas Tidal Volume 500.0 FiO2 80.0 Oxyhemoglobin Percent 98.4 Total Hemoglobin 10.0 L Test 08/05/16 12:38 Bedside Glucose 174 Medications Medications Current Medications Piperacillin Sod/ Tazobactam Sod (Zosyn 2.25gm/ 50ml (Pmx)) 50 ml @ 100 mls/hr Q8 IVPB Last administered on 08/05/16t 13:39; Admin Dose 100 MLS/HR; Start at 06:00 Aspirin (Aspirin) 81 mg DAILY NGT Last administered on 08/05/16 08:33; Admin Dose 81 MG; Start 08/03/16 at 09:00 Famotidine 20 mg 20 mg DAILY IV Last administered on 08/05/16 08:33; Admin Dose 20 MG; Start 08/03/16 at 09:00 Fentanyl (Sublimaze) 100 ml @ 5 mls/hr TITRATE IV Last administered on 12:38; Admin Dose 5 MLS/HR; Start 08/03/16 at 10:00 IV Flush (NS 10 ml) 10 ml PRN PRN IV IV PROTOCOL; Start 08/03/16 at 16:30 Atorvastatin Calcium (Lipitor) 80 mg HS NGT Last administered on 08/04/16 21:17 ; Admin Dose 80 MG; Start 08/03/16 at 21:00 Acetaminophen 650 mg 650 mg Q6H PRN NGT PAIN AND OR ELEVATED TEMP Last administered on 08/03/16 22:08; Admin Dose 650 MG; Start 08/03/16 at 22:00 Midazolam HCl (Versed) 50 ml @ 1 mls/hr TITRATE IV Last administered on 12:39; Admin Dose 5 MLS/HR; Start 08/03/16 at 22:15 Insulin Aspart (Novolog Insulin Pen) NOVOLOG *MODERATE* ALGORI... Q4 SC Last administered on 08/05/16 12:43; Admin Dose 2 UNIT; Start 08/04/16 at 13:00 Miscellaneous Information 1 ea NOTE XX ; Start 08/04/16 at 09:30 Glucose (Glutose) 15 gm Q15M PRN PO DECREASED GLUCOSE; Start 08/04/16 at 09:30 Glucose (Glutose) 22.5 gm Q15M PRN PO DECREASED GLUCOSE; Start 08/04/16 at 09:30 Dextrose (D50w Syringe) 25 ml Q15M PRN IV DECREASED GLUCOSE; Start 08/04/16 at 09:30 Dextrose (D50w Syringe) 50 ml Q15M PRN IV DECREASED GLUCOSE; Start 08/04/16 at 09:30 Glucagon (Glucagen) 1 mg Q15M PRN IM DECREASED GLUCOSE; Start 08/04/16 at 09:30 Glucose 15 gm 15 gm Q15M PRN BUCCAL DECREASED GLUCOSE; Start 08/04/16 at 09:30 Lidocaine HCl/ Dextrose 500 ml @ 15 mls/hr Q24H IV Last administered on 14:05; Admin Dose 15 MLS/HR; Start 08/04/16 at 13:00 Potassium Chloride/Sodium Chloride 1,000 ml @ 20 mls/hr Q24H IV Last administered on 08/04/16 13:41; Admin Dose 20 MLS/HR; Start 08/04/16 at 13:30 Norepinephrine/ Dextrose (Levophed/D5W) 500 ml @ 1.87 mls/hr TITRATE IV Last administered on 08/05/16 00:53; Admin Dose 22.5 MLS/HR; Start 08/04/16 at 16:30 Mupirocin (Bactroban) 1 applic BID TOP Last administered on 08/05/16 11:14; Admin Dose 1 APPLIC; Start 08/05/16 at 11:00; Stop 08/10/16 at 10:59 Miguel Quiroga DO Aug 05, 2016 14:22
[2016-08-05] MEDS ORDERED: DIGOXIN 500 MCG INJ IV ONE ×2 (15:00→21:00)
--- NOTE | 2016-08-05 15:32 | CONS ---
DATE OF ADMISSION: 08/03/2016 DATE OF CONSULTATION: 08/04/2016 PALLIATIVE CARE CONSULTATION HISTORY OF PRESENT ILLNESS: This is a critically ill 75-year-old female who was found down at home approximately 5 hours since last seen. At that time she was brought into emergency room initially di agnosed as a code stroke, although she decompensated in the emergency room, required intubation for pulmonary edema and acute respiratory failure. She has been in the intensive care unit for 36 hours now. Diagnosis, currently she is intubated, acute hypoxic respiratory failure, with a low ejection fraction and pulmonary edema, non ST-myocardial infarction, currently being followed by cardiology, being followed respiratory. Condition status being followed by pulmonary medicine. The patient has acute renal failure, being followed by Dr. Cee. She is receiving aggressive fluid and electrol yte repletion. Attention to probable systemic inflammatory response syndrome versus sepsis, and rec eiving broad spectrum IV antibiotic coverage. Family members, 3 children and a [id number], hav e been at the patient's bedside since the initial admission. MEDICATIONS: Please refer to the reconciliation sheets. ALLERGIES: NO KNOWN DRUG ALLERGIES. MAJOR MEDICAL PROBLEMS IN THE PAST: I have, which is a somewhat incomplete database, is noncontribu tory towards this hospitalization and as per history of present illness. SOCIAL HISTORY: She lives with her son. Nonsmoker, nondrinker. FAMILY HISTORY: Noncontributory. REVIEW OF SYSTEMS: Cannot be obtained. PHYSICAL EXAMINATION: GENERAL: Shows a critically ill female. VITAL SIGNS: Blood pressure 95/51, pulse 133, respirations of 15, pulse oximetry 100% on 60% FIO2. HEENT: She is normocephalic and atraumatic. Anicteric, acyanotic on examination. CHEST: Distant breath sounds throughout both lung morrison. COR: S1, S2, without S3, S4, murmur, gallop or rub. Normal rate, normal rhythm on examination. ABDOMEN: Grossly unremarkable. Laboratory tests have been reviewed. ASSESSMENT AND PLAN: A family conference has been done with all the children. Reviewed her prehospi rené overall medical condition and performance status, as well as her admitting diagnosis, current m edical condition, laboratory, critical diagnoses on admission and reviewed the consultants who have been taking care of Ms. Yu. The family are traumatized at this time, understandably, and of co telma want to pursue an aggressive level of care. It seems that the patient has had some cardiac pro blems in the past, but apparently has been very functional since that period of time and neurologica lly and cognitively normal. I feel the family is somewhat fragile at this time and suggest that we just go very slowly to orient them to her diagnosis and condition, and stage by stage walk them thro ugh the process of either the patient improving or especially if she does not improve significantly from a cardiovascular sepsis or neurological standpoint, we would need to be very careful in our marco roaches. Family members seem to be, at first impression, somewhat in severe denial of the severity of her medical condition, currently even after an extensive conversation. Dictated By: SABRA PAZ MD, LP/SUHAIL Conf#: [id number] DID#: [id number]
--- NOTE | 2016-08-05 16:24 | PN ---
DATE: 08/05/2016 I had an extensive conversation with patient's 3 children, reviewed the patient's cardiopulmonary pr oblems in detail, potential infectious disorder, treatment for all 3 as well as patient's renal func tion which has not significantly deteriorated, but most importantly spoke to him about her current n eurological status and opened up that conversation to "what if" may occur if she improves from a ph ysiological standpoint, but not from a cognitive standpoint. The patient's other primary care team has spoken to them today about code status, and it was not my impression that they wanted to address that once again, but. I did mention that if she continues to have or does have more cardiopulmonar y arrests, her chances of survivability is extremely low. I did impress upon family members that on e of the scenarios which may occur is that she may improve once again from a physiologic standpoint, but not improve neurologically, and then they would be left with the decision whether or not to con tinue with care including PEG, trach and subsequent ongoing level of care and at what facility. I believe it was appropriate to bring it up to focus patient on family members on what may happen in t he future, even if she does improve from other standpoints other than neurologically. Family seems to understand the very severity of her medical condition at this time. I did impress upon them that things will change on a daily basis and that she may suddenly decompensated and . Tomorrow, I w ill open up a conversation to changing her code status at least to no cardiopulmonary resuscitation , but to continue with this current level of care. Once again, I do not believe that they are curre ntly psychologically able to address that at this time. Dictated By: SABRA PAZ MD LP/NTS Conf#: [id number] DID#: [id number]
--- NOTE | 2016-08-05 20:41 | NEURPT ---
DATE: ELECTROENCEPHALOGRAM INDICATION: The patient is a 75-year-old lady with respiratory failure, congestive heart failure, c ardiogenic shock, intubated, sedated, semicomatose. DESCRIPTION OF PROCEDURE: Routine EEG was recorded digitally. [id number] and [id number]-il-[id number] mart ages were recorded and reviewed. All impedances were measured and recorded. Cap electrodes were pl aced in accordance with International 10-20 system of electrode placement. FINDINGS: Symmetrically distributed background activity of low to medium amplitude ranging in frequ ency between 3 to 5 cycles per second was seen throughout the recording. No response to photic stim ulation. No epileptiform transients were seen. No lateralized slowing was observed. IMPRESSION: Abnormal study secondary to background slowing which reflects presence of encephalopath y, likely toxic metabolic etiology. Please correlate clinically. Dictated By: ERIK GONZALEZ/SUHAIL Conf#: [id number] DID#: [id number]
[2016-08-05] MEDS: ATORVASTATIN 80 MG TAB NGT SCH (20:44)
[2016-08-06] VITALS (87 sets, daily range): BP systolic 68–135; BP diastolic 40–104; PULSE 84–134; RESP 10–21
[2016-08-06] MEDS: INSULIN ASPART [NOVOLOG] 3 ML PEN SC SCH ×6 (00:14→21:00)
[2016-08-06] MEDS: LIDOCAINE 2 GM/D5W 500 ML IV SCH (04:50)
[2016-08-06] MEDS: FENTAnyl (DRIP) 1000 mcg/100mL 100 ML IV SCH ×2 (04:50→23:34)
[2016-08-06] MEDS: PIPER-TAZO 2.25 GM (PMX) 50 ML IVPB SCH ×3 (05:00→21:02)
[2016-08-06 05:08] LABS: ADD SCAN DIFF NO
[2016-08-06 05:20] LABS: BASOPHIL # 0.1 10^3/ul (0.0-0.1); BASOPHILS % 0.4 % (0.0-2.0); EOSINOPHILS # 0.6 10^3/ul (0.0-0.5); EOSINOPHILS % 3.1 % (0.0-7.0); HEMATOCRIT 26.8 % (37.0-47.0); HEMOGLOBIN 8.5 g/dl (12.0-16.0); LYMPHOCYTES # 1.9 10^3/ul (0.8-2.9); LYMPHOCYTES % 9.9 % (15.0-51.0); MEAN CORPUSCULAR HEMOGLOBIN 29.7 pg (29.0-33.0); MEAN CORPUSCULAR HGB CONC 31.7 g/dl (32.0-37.0); MEAN CORPUSCULAR VOLUME 93.7 fl (82.0-101.0); MEAN PLATELET VOLUME 12.3 fl (7.4-10.4); MONOCYTE # 0.7 10^3/ul (0.3-0.9); MONOCYTES % 3.5 % (0.0-11.0); PLATELET COUNT 176 10^3/UL (140-415); RED BLOOD COUNT 2.86 10^6/ul (4.20-5.40); RED CELL DISTRIBUTION WIDTH 15.1 % (11.5-14.5); WHITE BLOOD COUNT 19.5 10^3/ul (4.8-10.8)
[2016-08-06 05:35] LABS: POTASSIUM 3.9 mmol/L (3.5-5.1)
[2016-08-06 05:37] LABS: CREATININE 1.8 mg/dl (0.44-1.00)
[2016-08-06 05:38] LABS: CALCIUM 7.9 mg/dl (8.4-10.2)
--- NOTE | 2016-08-06 08:30 | CONS ---
Date/Time of Note Date/Time of Note DATE: 08/06/16 TIME: 08:27 Assessment/Plan Assessment/Plan Additional Assessment/Plan 1. Acute kidney injury versus acute kidney injury on chronic kidney disease secondary to cardiorenal syndrome. 2. Acute congestive heart failure exacerbation with pulmonary edema. 3. SHOCK on two pressors 4. Metabolic acidosis with a bicarbonate of 12. On chemistry, her blood gas shows a pH of 7.29. 5. History of hypertension. 6. History of diabetes mellitus. 7. History of hypothyroidism. 8. Acute hypoxemic respiratory failure, currently intubated secondary to acute pulmonary edema. 9. Non-ST elevation myocardial infarction. 10. Severe acute CHF with pulmonary edema. 11. Anion gap metabolic acidosis secondary to acute renal failure. 12. Systemic inflammatory response syndrome versus sepsis from probable underlying pneumonia. 13. Acute encephalopathy, multifactorial. PLAN: Cr stable, good urine output in last 24 hour U/o 2 liter heparin gtt NS with KCL Lasix on hold will follow up Consultation Date/Type/Reason Admit Date/Time Aug 03, 2016 at 04:29 Initial Consult Date 08/04/16 Type of Consultation: NEPHROLOGY Referring Provider: JEREMIAH ACEVEDO MD 24 HR Interval Summary Free Text/Dictation pt remains intubated, BP stable but HR high- U/o 2 liter Exam/Review of Systems Vital Signs Vitals Vital Signs Date Time Temp Pulse Resp B/P Pulse Ox O2 Delivery O2 Flow Rate FiO2 08/06/16 06:00 132 16 111/51 100 Mechanical Ventilator 08/06/16 05:10 40 08/06/16 00:00 98.0 Intake and Output 08/05/16 08/05/16 08/06/16 15:00 23:00 07:00 Intake Total 586.62 ml 680.85 ml 552.47 ml Output Total 800 ml 660 ml 540 ml Balance -213.38 ml 20.85 ml 12.47 ml Exam Sedated and intubated ENMT: intubated Respiratory: Coarse breath sounds bilaterally with scattered crackles, no wheezing Cardiovascular: irregular rhythm, other (S1-S2 heard), systolic murmur Gastrointestinal: bowel sounds, non-tender, other (No grimacing with palpation) , soft Extremities: edema Results Result Diagram: 08/06/16 0400 08/06/16 0400 Results 24 hrs Laboratory Tests Test 08/05/16 08:32 08/05/16 12:38 08/05/16 16:41 08/05/16 20:57 Bedside Glucose 158 174 196 159 Test 08/06/16 00:13 08/06/16 04:00 08/06/16 04:50 08/06/16 08:17 Bedside Glucose 153 123 118 Anion Gap 17 H Basophils # 0.1 Basophils % 0.4 Blood Urea Nitrogen 42 H Calcium Level 7.9 L Carbon Dioxide Level 20 L Chloride Level 110 Creatinine 1.80 H Eosinophils # 0.6 H Eosinophils % 3.1 Glucose Level 215 Hematocrit 26.8 L Hemoglobin 8.5 L Lymphocytes # 1.9 Lymphocytes % 9.9 L Mean Corpuscular Hemoglobin 29.7 Mean Corpuscular Hemoglobin Concent 31.7 L Mean Corpuscular Volume 93.7 Mean Platelet Volume 12.3 H Monocytes # 0.7 Monocytes % 3.5 Neutrophils # 16.0 H Neutrophils % 82.0 H Nucleated Red Blood Cells # 0.0 Nucleated Red Blood Cells % 0.0 Platelet Count 176 Potassium Level 3.9 Red Blood Count 2.86 L Red Cell Distribution Width 15.1 H Sodium Level 143 White Blood Count 19.5 H Medications Medications Current Medications Piperacillin Sod/ Tazobactam Sod (Zosyn 2.25gm/ 50ml (Pmx)) 50 ml @ 100 mls/hr Q8 IVPB Last administered on 08/06/16 05:00; Admin Dose 100 MLS/HR; Start 08/03 at 06:00 Aspirin (Aspirin) 81 mg DAILY NGT Last administered on 08/05/16 08:33; Admin Dose 81 MG; Start 08/03/16 at 09:00 Famotidine 20 mg 20 mg DAILY IV Last administered on 08/05/16 08:33; Admin Dose 20 MG; Start 08/03/16 at 09:00 Fentanyl (Sublimaze) 100 ml @ 5 mls/hr TITRATE IV Last administered on 04:50; Admin Dose 5 MLS/HR; Start 08/03/16 at 10:00 IV Flush (NS 10 ml) 10 ml PRN PRN IV IV PROTOCOL; Start 08/03/16 at 16:30 Atorvastatin Calcium (Lipitor) 80 mg HS NGT Last administered on 08/05/16 20:44 ; Admin Dose 80 MG; Start 08/03/16 at 21:00 Acetaminophen 650 mg 650 mg Q6H PRN NGT PAIN AND OR ELEVATED TEMP Last administered on 08/03/16 22:08; Admin Dose 650 MG; Start 08/03/16 at 22:00 Midazolam HCl (Versed) 50 ml @ 1 mls/hr TITRATE IV Last administered on 22:51; Admin Dose 5 MLS/HR; Start 08/03/16 at 22:15 Insulin Aspart (Novolog Insulin Pen) NOVOLOG *MODERATE* ALGORI... Q4 SC Last administered on 08/06/16 00:14; Admin Dose 2 UNIT; Start 08/04/16 at 13:00 Miscellaneous Information 1 ea NOTE XX ; Start 08/04/16 at 09:30 Glucose (Glutose) 15 gm Q15M PRN PO DECREASED GLUCOSE; Start 08/04/16 at 09:30 Glucose (Glutose) 22.5 gm Q15M PRN PO DECREASED GLUCOSE; Start 08/04/16 at 09:30 Dextrose (D50w Syringe) 25 ml Q15M PRN IV DECREASED GLUCOSE; Start 08/04/16 at 09:30 Dextrose (D50w Syringe) 50 ml Q15M PRN IV DECREASED GLUCOSE; Start 08/04/16 at 09:30 Glucagon (Glucagen) 1 mg Q15M PRN IM DECREASED GLUCOSE; Start 08/04/16 at 09:30 Glucose 15 gm 15 gm Q15M PRN BUCCAL DECREASED GLUCOSE; Start 08/04/16 at 09:30 Lidocaine HCl/ Dextrose 500 ml @ 15 mls/hr Q24H IV Last administered on 04:50; Admin Dose 15 MLS/HR; Start 08/04/16 at 13:00 Potassium Chloride/Sodium Chloride 1,000 ml @ 20 mls/hr Q24H IV Last administered on 08/04/16 13:41; Admin Dose 20 MLS/HR; Start 08/04/16 at 13:30 Norepinephrine/ Dextrose (Levophed/D5W) 500 ml @ 1.87 mls/hr TITRATE IV Last administered on 08/06/16 00:09; Admin Dose 13.12 MLS/HR; Start 08/04/16 at 16:30 Mupirocin (Bactroban) 1 applic BID TOP Last administered on 08/05/16t 20:44; Admin Dose 1 APPLIC; Start 08/05/16 at 11:00; Stop 08/10/16 at 10:59 CARYN GALVEZ MD Aug 06, 2016 08:30
--- NOTE | 2016-08-06 08:45 | PN ---
Date/Time of Note Date/Time of Note DATE: 08/06/16 TIME: 08:35 Assessment/Plan VTE Prophylaxis VTE Prophylaxis Intervention: heparin VTE Contraindication Reason: thrombocytopenia Lines/Catheters IV Catheter Type (from Nrsg): PICC Line Central line still needed: Yes Urinary Cath still in place: Yes Reason Cath still needed: terminal illness/intractable pain Assessment/Plan Assessment/Plan 1. Acute hypoxemic resp failure currently vent dependent 2/2 #2 - continue with weaning as tolerated, Pulm c/s appreciated. - still worsening 2. Severe Acute CHF with pulmonary edema - improving, continue cardiology recs - lasix prn, EF 35%, stage II diastolic dysfunction * Impending shock, ?cardiogenic - continue with pressor support - wean as tolerated 3. NSTEMI - 2/2 to cardiac arrest - monitor trend, on heparin 4. Acute renal insufficiency - monitor acute changes, renally adjust medications , as per clinical course. - worsening from ATN - monitor changes 5. Anion gap metabolic acidosis 2/2 #4 - monitor - on bicarb drip - wean as tolerated 6. DM 2: uncontrolled - insulin gtt, hgba1c 6.5 - insulin gtt 7. SIRS vs Sepsis from probable underlying Pneumonia - aspiration - continue with antibiotics, continue with pressor support - worsening leukocytosis 8. Acute Encephalopathy R/o CVA - will wait for MRI - once patient is more clinically stable 9. HTN essential - * Patient came in uncontrolled > borderline hypotensive - on dopamine 10. GI ppx - protonix 11. DVT ppx - heparin dispo - f/u recs, monitor acute changes, continue with ABG, labs, as per clinical course - prognosis - poor - at this time in the next couple of days, determination to see which direction the care plan needs to go will be made. If there is no clinical improvement on the patient, a more comfort measures approach will be taken, this critical care note took greater than 1 hour to complete Subjective 24 Hr Interval Summary Free Text/Dictation Patient is status quo. I had a long conversation with both of the sons at bedside, explaining diagnosis, causes, prognosis and care plan. They understood that the patient, their mother, is in critical condition. At any moment, she can easily decline in function. A code status question was entertained. But, at this time will remain a full code, until family decides otherwise. 50 minutes spent. Exam/Review of Systems Vital Signs Vitals Vital Signs Date Time Temp Pulse Resp B/P Pulse Ox O2 Delivery O2 Flow Rate FiO2 08/06/16 06:00 132 16 111/51 100 Mechanical Ventilator 08/06/16 05:10 40 08/06/16 00:00 98.0 Intake and Output 08/05/16 08/05/16 08/06/16 14:59 22:59 06:59 Intake Total 524.75 ml 732.10 ml 625.59 ml Output Total 700 ml 680 ml 620 ml Balance -175.25 ml 52.10 ml 5.59 ml Exam Gen Doris: intubated and sedated HEENT: NC/AT, PERRLA, ETT NECK: supple, no thyromegaly THORAX: symmetrical, no obvious deformities CV: S1S2, tachycardiac, III/ systolic murmur Lungs: coarse breath sounds, worsening scattered crackles Abd: soft, NT/ND, +BS, no rebound, no guarding, neg HSM EXT: 2+ bilateral lower extremity edema, no ecchymosis, no clubbing, onychomycosis Neuro: intubated, sedated Psych: cannot assess Skin: decreased turgor Results Result Diagram: 08/06/16 0400 08/06/16 0400 Results 24 hrs Laboratory Tests Test 08/05/16 12:38 08/05/16 16:41 08/05/16 20:57 08/06/16 00:13 Bedside Glucose 174 196 159 153 Test 08/06/16 04:00 08/06/16 04:50 08/06/16 08:17 Anion Gap 17 H Basophils # 0.1 Basophils % 0.4 Blood Urea Nitrogen 42 H Calcium Level 7.9 L Carbon Dioxide Level 20 L Chloride Level 110 Creatinine 1.80 H Eosinophils # 0.6 H Eosinophils % 3.1 Glucose Level 215 Hematocrit 26.8 L Hemoglobin 8.5 L Lymphocytes # 1.9 Lymphocytes % 9.9 L Mean Corpuscular Hemoglobin 29.7 Mean Corpuscular Hemoglobin Concent 31.7 L Mean Corpuscular Volume 93.7 Mean Platelet Volume 12.3 H Monocytes # 0.7 Monocytes % 3.5 Neutrophils # 16.0 H Neutrophils % 82.0 H Nucleated Red Blood Cells # 0.0 Nucleated Red Blood Cells % 0.0 Platelet Count 176 Potassium Level 3.9 Red Blood Count 2.86 L Red Cell Distribution Width 15.1 H Sodium Level 143 White Blood Count 19.5 H Bedside Glucose 123 118 Medications Medications Current Medications Piperacillin Sod/ Tazobactam Sod (Zosyn 2.25gm/ 50ml (Pmx)) 50 ml @ 100 mls/hr Q8 IVPB Last administered on 08/06/16 05:00; Admin Dose 100 MLS/HR; Start 08/03 at 06:00 Aspirin (Aspirin) 81 mg DAILY NGT Last administered on 08/05/16 08:33; Admin Dose 81 MG; Start 08/03/16 at 09:00 Famotidine 20 mg 20 mg DAILY IV Last administered on 08/05/16 08:33; Admin Dose 20 MG; Start 08/03/16 at 09:00 Fentanyl (Sublimaze) 100 ml @ 5 mls/hr TITRATE IV Last administered on 04:50; Admin Dose 5 MLS/HR; Start 08/03/16 at 10:00 IV Flush (NS 10 ml) 10 ml PRN PRN IV IV PROTOCOL; Start 08/03/16 at 16:30 Atorvastatin Calcium (Lipitor) 80 mg HS NGT Last administered on 08/05/16 20:44 ; Admin Dose 80 MG; Start 08/03/16 at 21:00 Acetaminophen 650 mg 650 mg Q6H PRN NGT PAIN AND OR ELEVATED TEMP Last administered on 08/03/16 22:08; Admin Dose 650 MG; Start 08/03/16 at 22:00 Midazolam HCl (Versed) 50 ml @ 1 mls/hr TITRATE IV Last administered on 22:51; Admin Dose 5 MLS/HR; Start 08/03/16 at 22:15 Insulin Aspart (Novolog Insulin Pen) NOVOLOG *MODERATE* ALGORI... Q4 SC Last administered on 08/06/16 00:14; Admin Dose 2 UNIT; Start 08/04/16 at 13:00 Miscellaneous Information 1 ea NOTE XX ; Start 08/04/16 at 09:30 Glucose (Glutose) 15 gm Q15M PRN PO DECREASED GLUCOSE; Start 08/04/16 at 09:30 Glucose (Glutose) 22.5 gm Q15M PRN PO DECREASED GLUCOSE; Start 08/04/16 at 09:30 Dextrose (D50w Syringe) 25 ml Q15M PRN IV DECREASED GLUCOSE; Start 08/04/16 at 09:30 Dextrose (D50w Syringe) 50 ml Q15M PRN IV DECREASED GLUCOSE; Start 08/04/16 at 09:30 Glucagon (Glucagen) 1 mg Q15M PRN IM DECREASED GLUCOSE; Start 08/04/16 at 09:30 Glucose 15 gm 15 gm Q15M PRN BUCCAL DECREASED GLUCOSE; Start 08/04/16 at 09:30 Lidocaine HCl/ Dextrose 500 ml @ 15 mls/hr Q24H IV Last administered on 04:50; Admin Dose 15 MLS/HR; Start 08/04/16 at 13:00 Potassium Chloride/Sodium Chloride 1,000 ml @ 20 mls/hr Q24H IV Last administered on 08/04/16 13:41; Admin Dose 20 MLS/HR; Start 08/04/16 at 13:30 Norepinephrine/ Dextrose (Levophed/D5W) 500 ml @ 1.87 mls/hr TITRATE IV Last administered on 08/06/16 00:09; Admin Dose 13.12 MLS/HR; Start 08/04/16 at 16:30 Mupirocin (Bactroban) 1 applic BID TOP Last administered on 08/05/16 20:44; Admin Dose 1 APPLIC; Start 08/05/16 at 11:00; Stop 08/10/16 at 10:59 JEREMIAH ACEVEDO MD Aug 06, 2016 08:45
[2016-08-06] MEDS: ASPIRIN 81 MG TAB NGT SCH (09:01)
[2016-08-06] MEDS: FAMOTIDINE 20 MG INJ IV SCH (09:01)
[2016-08-06] MEDS: MUPIROCIN 2% 22 GM OINT TOP SCH ×2 (09:02→20:59)
[2016-08-06] MEDS: ACETAMINOPHEN 650MG/20.3ML CUP NGT PRN ×2 (09:02→16:22)
--- NOTE | 2016-08-06 09:38 | CONS ---
Date/Time of Note Date/Time of Note DATE: 08/06/16 TIME: 09:34 Assessment/Plan Assessment/Plan Additional Assessment/Plan Ventilator settings; assist control of 14, tidal volume 500, PEEP of 5, 40% FiO2. Assessment recommendations; 1. Patient admitted with severe congestive heart failure and severe pulmonary edema. Had a cardiac arrest event in ICU requiring prolonged CPR. 2. Likely antecedent acute OR at home. 3. Renal insufficiency. Slight increase in serum creatinine from today. 4. Cardiac arrhythmia. Currently on lidocaine drip. 5. Hypotension. Currently on a tapering dose of Levophed as well. 6. Improving leukocytosis. May have aspiration pneumonia . Patient currently on adequate antibiotic coverage. Continue current treatment. Obtain a chest x-ray. I did have a detailed discussion the patient's son at bedside and answered all his questions. Prognosis remains guarded. Consultation Date/Type/Reason Admit Date/Time Aug 03, 2016 at 04:29 Initial Consult Date 08/04/16 Type of Consultation: Pulmonary/critical care Referring Provider: JEREMIAH ACEVEDO MD 24 HR Interval Summary Free Text/Dictation Patient's condition remains critical. Still fully ventilator dependent. However has remained hemodynamically stable although requiring Levophed at a lower dosing. Patient has converted to atrial fibrillation. General examination; elderly lady, or intubated, sedated. Currently in no distress. Exam/Review of Systems Vital Signs Vitals Vital Signs Date Time Temp Pulse Resp B/P Pulse Ox O2 Delivery O2 Flow Rate FiO2 08/06/16 06:00 132 16 111/51 100 Mechanical Ventilator 08/06/16 05:10 40 08/06/16 00:00 98.0 Intake and Output 08/05/16 08/05/16 08/06/16 15:00 23:00 07:00 Intake Total 586.62 ml 680.85 ml 552.47 ml Output Total 800 ml 660 ml 540 ml Balance -213.38 ml 20.85 ml 12.47 ml Exam H EENT examination; supple neck. Positive JVD. No lymphadenopathy. Or intubated. No neck masses. No thyromegaly. Pupils are midsize reactive to light bilaterally has bilateral intraocular lens implants. Dentition is fair. Chest examination; diminished but clear breath sounds. S1-S2 audible. Tachycardic, irregular rhythm. No murmurs. Abdomen examination; soft, nondistended. No organomegaly. Bowel sounds are audible. Extremity examination; no peripheral edema. Pulses 1+ bilaterally. LAB REP examination; patient is sedated. Results Result Diagram: 08/06/1639908/06/16 0400 Results 24 hrs Laboratory Tests Test 08/05/16 12:38 08/05/16 16:41 08/05/16 20:57 08/06/16 00:13 Bedside Glucose 174 196 159 153 Test 08/06/16 04:00 08/06/16 04:50 08/06/16 08:17 Anion Gap 17 H Basophils # 0.1 Basophils % 0.4 Blood Urea Nitrogen 42 H Calcium Level 7.9 L Carbon Dioxide Level 20 L Chloride Level 110 Creatinine 1.80 H Eosinophils # 0.6 H Eosinophils % 3.1 Glucose Level 215 Hematocrit 26.8 L Hemoglobin 8.5 L Lymphocytes # 1.9 Lymphocytes % 9.9 L Mean Corpuscular Hemoglobin 29.7 Mean Corpuscular Hemoglobin Concent 31.7 L Mean Corpuscular Volume 93.7 Mean Platelet Volume 12.3 H Monocytes # 0.7 Monocytes % 3.5 Neutrophils # 16.0 H Neutrophils % 82.0 H Nucleated Red Blood Cells # 0.0 Nucleated Red Blood Cells % 0.0 Platelet Count 176 Potassium Level 3.9 Red Blood Count 2.86 L Red Cell Distribution Width 15.1 H Sodium Level 143 White Blood Count 19.5 H Bedside Glucose 123 118 Medications Medications Current Medications Piperacillin Sod/ Tazobactam Sod (Zosyn 2.25gm/ 50ml (Pmx)) 50 ml @ 100 mls/hr Q8 IVPB Last administered on 08/06/16 05:00; Admin Dose 100 MLS/HR; Start 08/03 at 06:00 Aspirin (Aspirin) 81 mg DAILY NGT Last administered on 08/06/16 09:01; Admin Dose 81 MG; Start 08/03/16 at 09:00 Famotidine 20 mg 20 mg DAILY IV Last administered on 08/06/16 09:01; Admin Dose 20 MG; Start 08/03/16 at 09:00 Fentanyl (Sublimaze) 100 ml @ 5 mls/hr TITRATE IV Last administered on 04:50; Admin Dose 5 MLS/HR; Start 08/03/16 at 10:00 IV Flush (NS 10 ml) 10 ml PRN PRN IV IV PROTOCOL; Start 08/03/16 at 16:30 Atorvastatin Calcium (Lipitor) 80 mg HS NGT Last administered on 08/05/16 20:44 ; Admin Dose 80 MG; Start 08/03/16 at 21:00 Acetaminophen 650 mg 650 mg Q6H PRN NGT PAIN AND OR ELEVATED TEMP Last administered on 08/06/16 09:02; Admin Dose 650 MG; Start 08/03/16 at 22:00 Midazolam HCl (Versed) 50 ml @ 1 mls/hr TITRATE IV Last administered on 22:51; Admin Dose 5 MLS/HR; Start 08/03/16 at 22:15 Insulin Aspart (Novolog Insulin Pen) NOVOLOG *MODERATE* ALGORI... Q4 SC Last administered on 08/06/16 00:14; Admin Dose 2 UNIT; Start 08/04/16 at 13:00 Miscellaneous Information 1 ea NOTE XX ; Start 08/04/16 at 09:30 Glucose (Glutose) 15 gm Q15M PRN PO DECREASED GLUCOSE; Start 08/04/16 at 09:30 Glucose (Glutose) 22.5 gm Q15M PRN PO DECREASED GLUCOSE; Start 08/04/16 at 09:30 Dextrose (D50w Syringe) 25 ml Q15M PRN IV DECREASED GLUCOSE; Start 08/04/16 at 09:30 Dextrose (D50w Syringe) 50 ml Q15M PRN IV DECREASED GLUCOSE; Start 08/04/16 at 09:30 Glucagon (Glucagen) 1 mg Q15M PRN IM DECREASED GLUCOSE; Start 08/04/16 at 09:30 Glucose 15 gm 15 gm Q15M PRN BUCCAL DECREASED GLUCOSE; Start 08/04/16 at 09:30 Lidocaine HCl/ Dextrose 500 ml @ 15 mls/hr Q24H IV Last administered on 04:50; Admin Dose 15 MLS/HR; Start 08/04/16 at 13:00 Potassium Chloride/Sodium Chloride 1,000 ml @ 20 mls/hr Q24H IV Last administered on 08/04/16 13:41; Admin Dose 20 MLS/HR; Start 08/04/16 at 13:30 Norepinephrine/ Dextrose (Levophed/D5W) 500 ml @ 1.87 mls/hr TITRATE IV Last administered on 08/06/16 00:09; Admin Dose 13.12 MLS/HR; Start 08/04/16 at 16:30 Mupirocin (Bactroban) 1 applic BID TOP Last administered on 08/06/16 09:02; Admin Dose 1 APPLIC; Start 08/05/16 at 11:00; Stop 08/10/16 at 10:59 CORI TROY Aug 06, 2016 09:38
[2016-08-06] MEDS: MIDAZOLAM (DRIP) 50 mg/50 mL 50 ML IV SCH ×2 (10:45→20:56)
--- NOTE | 2016-08-06 10:55 | CONS ---
Date/Time of Note Date/Time of Note DATE: 08/06/16 TIME: 10:54 Assessment Additional comments: Full neuro consult dictated. Thank you ERIK MOORE MD Aug 06, 2016 10:55
--- NOTE | 2016-08-06 11:51 | CONS ---
DATE OF ADMISSION: 08/03/2016 DATE OF CONSULTATION: 08/06/2016 NEUROLOGICAL CONSULTATION Thank you, Dr. Pitts, for your kind referral for evaluation of encephalopathy and possible stroke. HISTORY OF PRESENT ILLNESS: The patient is a 75-year-old lady was found down on the floor by family , left-sided weakness and slurred speech on admission, respiratory failure requiring intubation, pul monary edema. CAT scan on admission did not show any acute intracranial abnormality. Her echocardi ogram was done and showing ejection fraction of 35 with mild to moderate mitral regurgitation. She also had acute kidney injury with creatinine of 1.725. She was diagnosed with [id number] myoc ardial infarction. She is in atrial fibrillation as well. The day before yesterday she had code bl ue secondary to torsades. Most recent labs show WBC count 19.5, hemoglobin 8.5, hematocrit 26.8, pl atelets 176. Chemistry showing BUN 42, creatinine 1.8. Rest of basic metabolic panel within normal limits. Troponins 0.234. BNP 31,000. That was a couple days ago. Liver function tests within no rmal limits. Urinalysis: Trace of leukocyte esterase. Tox screen was positive for benzos on admis joselin. CURRENT MEDICATIONS: She is on: 1. Pressors. 2. Norepinephrine. 3. Insulin. 4. Lidocaine. 5. Midazolam. 6. Atorvastatin. 7. [place]. 8. Aspirin. 9. Famotidine. 10. Zosyn. She was on heparin drip, but was discontinued. ALLERGIES: NONE. SOCIAL HISTORY: No alcohol, tobacco, drug use. FAMILY HISTORY: Noncontributory. REVIEW OF SYSTEMS: Unable to obtain. PHYSICAL EXAMINATION: VITAL SIGNS: Today temperature 100.1, pulse 126, respirations 14, blood pressure 98/45. GENERAL: The patient is not in acute distress, sedated and intubated orally. HEENT: Normocephalic, atraumatic head. NECK: Supple. LUNGS: Scattered rhonchi. CARDIAC: Normal cardiac rhythm and sounds, tachycardia. ABDOMEN: Soft. EXTREMITIES: 1+ edema. NEUROLOGIC: She is lethargic. No response to voice, pain, or commands. No response to visual thre at. Pupils: Right-sided postsurgical about 3 mm, left-sided slightly smaller, about 2 mm, reactive to light. No extraocular movements spontaneously or on oculocephalic maneuver. Corneal reflexes p resent bilaterally. No gag on suctioning. No movements of flaccid extremities in upper extremities and trace of withdrawal to pain in the feet. Deep tendon reflexes 2+ upper extremities, absent in lower extremities. Upgoing toes bilaterally. IMPRESSION: Severe encephalopathy. The patient is sedated which is skewing examination of course. She presented with signs of stroke and left-sided weakness on admission, later went into respirator y distress, had to be intubated. Ongoing medical problems include also status post code blue 2 days ago, renal insufficiency, respiratory failure, congestive heart failure, myocardial infarction. En cephalopathy, likely multifactorial. I would recommend to continue current treatment for ongoing me dical problems. Try to taper down sedation unless indicated for her medical problems. We will reas sess her mental status. For further evaluation of stroke and encephalopathy, if patient improves wi th her ongoing other medical conditions, probably further workup with an MRI and carotid ultrasound would be needed, but I think that is not urgent to be done right now. Thank you very much for this interesting consultation. Dictated By: ERIK GONZALEZ/SUHAIL Conf#: [id number] DID#: [id number]
--- NOTE | 2016-08-06 12:06 | RADRPT ---
PROCEDURE: CHEST 1VW CLINICAL INDICATION: Shortness of breath TECHNIQUE: Single frontal view of the chest was obtained COMPARISON: 08/05/2016 FINDINGS: Stable endotracheal tube, nasogastric tube, right PICC. The cardiac size is normal. Aortic vascular calcifications are demonstrated. There is stable mild to moderate pulmonary vascular congestion. The lungs are otherwise clear. No consolidation, effusion, or pneumothorax. Mild degenerative changes of the visualized osseous structures are visualized. IMPRESSION: 1. Stable cardiomegaly with stable mild moderate pulmonary vascular congestion and interstitial minnie a. 2. Atherosclerosis. 3. Stable lines and tubes. RPTAT:PP .Kendell Mercado MD, MD Date Time Electronically viewed and signed by .Kendell Mercado MD, on 08/06/2016 12:06 .V/
[2016-08-06] MEDS: NS + KCL 20 MEQ 1,000 ML IV SCH ×2 (12:41→20:56)
--- NOTE | 2016-08-06 14:16 | CONS ---
Date/Time of Note Date/Time of Note DATE: 08/06/16 TIME: 14:13 Assessment/Plan Assessment/Plan Additional Assessment/Plan Left-sided weakness concerning for CVA VT/Torsades-Cardiac arrest Respiratory failure Acute decompensated systolic congestive heart failure Cardiomyopathy with ejection fraction 35% Paroxysmal atrial fibrillation with rapid ventricular rates Diabetes Mildly elevated troponin Acute kidney injury -IV pressor requirements decreasing. Patient still with atrial fibrillation with rapid ventricular rates. Was loaded with IV digoxin yesterday. We will give additional dose today. Lidocaine being weaned down. Maintain potassium above 4.0 and magnesium above 2.0. Might need to consider amiodarone if rapid ventricular rates do not improve. Consultation Date/Type/Reason Admit Date/Time Aug 03, 2016 at 04:29 Initial Consult Date 08/04/16 Type of Consultation: cv Referring Provider: JEREMIAH ACEVEDO MD 24 HR Interval Summary Free Text/Dictation Patient remains sedated and intubated. No purposeful movement as per family Exam/Review of Systems Vital Signs Vitals Vital Signs Date Time Temp Pulse Resp B/P Pulse Ox O2 Delivery O2 Flow Rate FiO2 08/06/16 12:00 122 08/06/16 10:00 14 98/45 100 Mechanical Ventilator 08/06/16 08:00 100.1 08/06/16 08:00 40 Intake and Output 08/05/16 08/05/16 08/06/16 15:00 23:00 07:00 Intake Total 586.62 ml 680.85 ml 552.47 ml Output Total 800 ml 660 ml 620 ml Balance -213.38 ml 20.85 ml -67.53 ml Exam Sedated and intubated Head: normocephalic ENMT: intubated Respiratory: other (Coarse breath sounds bilaterally with minimal scattered crackles, no wheezing) Cardiovascular: irregular rhythm, other (S1-S2 heard, tachycardia) Gastrointestinal: bowel sounds, other (No guarding or grimacing with palpation) , soft Extremities: edema (+1) Results Result Diagram: 08/06/16 0400 08/06/16 0400 Results 24 hrs Laboratory Tests Test 08/05/16 16:41 08/05/16 20:57 08/06/16 00:13 08/06/16 04:00 Bedside Glucose 196 159 153 Anion Gap 17 H Basophils # 0.1 Basophils % 0.4 Blood Urea Nitrogen 42 H Calcium Level 7.9 L Carbon Dioxide Level 20 L Chloride Level 110 Creatinine 1.80 H Eosinophils # 0.6 H Eosinophils % 3.1 Glucose Level 215 Hematocrit 26.8 L Hemoglobin 8.5 L Lymphocytes # 1.9 Lymphocytes % 9.9 L Mean Corpuscular Hemoglobin 29.7 Mean Corpuscular Hemoglobin Concent 31.7 L Mean Corpuscular Volume 93.7 Mean Platelet Volume 12.3 H Monocytes # 0.7 Monocytes % 3.5 Neutrophils # 16.0 H Neutrophils % 82.0 H Nucleated Red Blood Cells # 0.0 Nucleated Red Blood Cells % 0.0 Platelet Count 176 Potassium Level 3.9 Red Blood Count 2.86 L Red Cell Distribution Width 15.1 H Sodium Level 143 White Blood Count 19.5 H Test 08/06/16 04:50 08/06/16 08:17 08/06/16 12:37 Bedside Glucose 123 118 157 Medications Medications Current Medications Piperacillin Sod/ Tazobactam Sod (Zosyn 2.25gm/ 50ml (Pmx)) 50 ml @ 100 mls/hr Q8 IVPB Last administered on 08/06/16 13:32; Admin Dose 100 MLS/HR; Start 08/03 at 06:00 Aspirin (Aspirin) 81 mg DAILY NGT Last administered on 08/06/16 09:01; Admin Dose 81 MG; Start 08/03/16 at 09:00 Famotidine 20 mg 20 mg DAILY IV Last administered on 08/06/16 09:01; Admin Dose 20 MG; Start 08/03/16 at 09:00 Fentanyl (Sublimaze) 100 ml @ 5 mls/hr TITRATE IV Last administered on 04:50; Admin Dose 5 MLS/HR; Start 08/03/16 at 10:00 IV Flush (NS 10 ml) 10 ml PRN PRN IV IV PROTOCOL; Start 08/03/16 at 16:30 Atorvastatin Calcium (Lipitor) 80 mg HS NGT Last administered on 08/05/16 20:44 ; Admin Dose 80 MG; Start 08/03/16 at 21:00 Acetaminophen 650 mg 650 mg Q6H PRN NGT PAIN AND OR ELEVATED TEMP Last administered on 08/06/16 09:02; Admin Dose 650 MG; Start 08/03/16 at 22:00 Midazolam HCl (Versed) 50 ml @ 1 mls/hr TITRATE IV Last administered on 10:45; Admin Dose 5 MLS/HR; Start 08/03/16 at 22:15 Insulin Aspart (Novolog Insulin Pen) NOVOLOG *MODERATE* ALGORI... Q4 SC Last administered on 08/06/16 12:45; Admin Dose 2 UNIT; Start 08/04/16 at 13:00 Miscellaneous Information 1 ea NOTE XX ; Start 08/04/16 at 09:30 Glucose (Glutose) 15 gm Q15M PRN PO DECREASED GLUCOSE; Start 08/04/16 at 09:30 Glucose (Glutose) 22.5 gm Q15M PRN PO DECREASED GLUCOSE; Start 08/04/16 at 09:30 Dextrose (D50w Syringe) 25 ml Q15M PRN IV DECREASED GLUCOSE; Start 08/04/16 at 09:30 Dextrose (D50w Syringe) 50 ml Q15M PRN IV DECREASED GLUCOSE; Start 08/04/16 at 09:30 Glucagon (Glucagen) 1 mg Q15M PRN IM DECREASED GLUCOSE; Start 08/04/16 at 09:30 Glucose 15 gm 15 gm Q15M PRN BUCCAL DECREASED GLUCOSE; Start 08/04/16 at 09:30 Lidocaine HCl/ Dextrose 500 ml @ 15 mls/hr Q24H IV Last administered on 04:50; Admin Dose 15 MLS/HR; Start 08/04/16 at 13:00 Potassium Chloride/Sodium Chloride 1,000 ml @ 20 mls/hr Q24H IV Last administered on 08/04/16 13:41; Admin Dose 20 MLS/HR; Start 08/04/16 at 13:30 Norepinephrine/ Dextrose (Levophed/D5W) 500 ml @ 1.87 mls/hr TITRATE IV Last administered on 08/06/16 00:09; Admin Dose 13.12 MLS/HR; Start 08/04/16 at 16:30 Mupirocin (Bactroban) 1 applic BID TOP Last administered on 08/06/16 09:02; Admin Dose 1 APPLIC; Start 08/05/16 at 11:00; Stop 08/10/16 at 10:59 Miguel Quiroga DO Aug 06, 2016 14:16
[2016-08-06] MEDS ORDERED: POTASSIUM CHLORIDE 20 MEQ POWDER FOR ORAL SOLN NGT ONE (14:30)
[2016-08-06] MEDS ORDERED: DIGOXIN 0.125 MG TAB NGT ONE (16:50)
[2016-08-06] MEDS: ATORVASTATIN 80 MG TAB NGT SCH (20:56)
[2016-08-07] VITALS (89 sets, daily range): BP systolic 72–160; BP diastolic 41–80; PULSE 75–108; RESP 15–26
[2016-08-07] MEDS: INSULIN ASPART [NOVOLOG] 3 ML PEN SC SCH ×6 (01:00→21:08)
[2016-08-07] MEDS: PIPER-TAZO 2.25 GM (PMX) 50 ML IVPB SCH ×3 (05:04→22:58)
[2016-08-07] MEDS: MIDAZOLAM (DRIP) 50 mg/50 mL 50 ML IV SCH ×2 (05:57→19:12)
[2016-08-07] MEDS: FAMOTIDINE 20 MG INJ IV SCH (08:29)
[2016-08-07] MEDS: ASPIRIN 81 MG TAB NGT SCH (08:29)
[2016-08-07] MEDS: MUPIROCIN 2% 22 GM OINT TOP SCH ×2 (08:30→20:49)
--- NOTE | 2016-08-07 08:47 | PN ---
Date/Time of Note Date/Time of Note DATE: 08/07/16 TIME: 08:43 Assessment/Plan VTE Prophylaxis VTE Prophylaxis Intervention: SCD's Lines/Catheters IV Catheter Type (from Nrsg): PICC Line Central line still needed: Yes Urinary Cath still in place: Yes Reason Cath still needed: terminal illness/intractable pain Assessment/Plan Assessment/Plan 1. Acute hypoxemic resp failure currently vent dependent 2/2 #2 - continue with weaning as tolerated, Pulm c/s appreciated. - mild improvement 2. Severe Acute CHF with pulmonary edema -continue cardiology recs - lasix prn, EF 35%, stage II diastolic dysfunction * Impending shock, ?cardiogenic - continue with pressor support - wean as tolerated - mild improvement 3. NSTEMI - 2/2 to cardiac arrest - monitor trend 4. Acute renal insufficiency - monitor acute changes, renally adjust medications , as per clinical course. - worsening from ATN - monitor changes 5. Anion gap metabolic acidosis / #4 - monitor - on bicarb drip - wean as tolerated 6. DM 2: uncontrolled - insulin gtt, hgba1c 6.5 - insulin gtt 7. SIRS vs Sepsis from probable underlying Pneumonia - aspiration - continue with antibiotics, continue with pressor support - worsening leukocytosis 8. Acute Encephalopathy R/o CVA - will wait for MRI - once patient is more clinically stable - appreciate neurology recs 9. HTN essential - * Patient came in uncontrolled > borderline hypotensive - on dopamine 10. GI ppx - protonix 11. DVT ppx - heparin dispo - f/u recs, monitor acute changes, continue with ABG, labs, as per clinical course - prognosis - poor - at this time in the next couple of days, determination to see which direction the care plan needs to go will be made. If there is no clinical improvement on the patient, a more comfort measures approach will be taken, this critical care note took greater than 40 min to complete Subjective 24 Hr Interval Summary Free Text/Dictation Patient had no overnight events. She is doing better today. Spoke to the nurse about the care plan. 15 minutes spent. Exam/Review of Systems Vital Signs Vitals Vital Signs Date Time Temp Pulse Resp B/P Pulse Ox O2 Delivery O2 Flow Rate FiO2 08/07/16 06:30 108 22 121/80 Mechanical Ventilator 08/07/16 05:38 100 30 08/07/16 04:00 98.9 Intake and Output 08/06/16 08/06/16 08/07/16 15:00 23:00 07:00 Intake Total 744.34 ml 640.62 ml 652.5 ml Output Total 325 ml 240 ml 680 ml Balance 419.34 ml 400.62 ml -27.5 ml Exam Gen Doris: intubated and sedated HEENT: NC/AT, PERRLA, ETT NECK: supple, no thyromegaly THORAX: symmetrical, no obvious deformities CV: S1S2, tachycardiac, III/ systolic murmur - mild improvement Lungs: coarse breath sounds, worsening scattered crackles - mild improvement Abd: soft, NT/ND, +BS, no rebound, no guarding, neg HSM EXT: 2+ bilateral lower extremity edema, no ecchymosis, no clubbing, onychomycosis Neuro: intubated, sedated Psych: cannot assess Skin: decreased turgor Results Result Diagram: 08/06/16 0400 08/06/16 0400 Results 24 hrs Laboratory Tests Test 08/06/16 12:37 08/06/16 16:12 08/06/16 21:03 08/07/16 01:20 Bedside Glucose 157 154 114 119 Test 08/07/16 05:00 08/07/16 08:08 Bedside Glucose 149 180 Medications Medications Current Medications Piperacillin Sod/ Tazobactam Sod (Zosyn 2.25gm/ 50ml (Pmx)) 50 ml @ 100 mls/hr Q8 IVPB Last administered on 08/07/16 05:04; Admin Dose 100 MLS/HR; Start 08/03 at 06:00 Aspirin (Aspirin) 81 mg DAILY NGT Last administered on 08/07/16 08:29; Admin Dose 81 MG; Start 08/03/16 at 09:00 Famotidine 20 mg 20 mg DAILY IV Last administered on 08/07/16 08:29; Admin Dose 20 MG; Start 08/03/16 at 09:00 Fentanyl (Sublimaze) 100 ml @ 5 mls/hr TITRATE IV Last administered on 23:34; Admin Dose 5 MLS/HR; Start 08/03/16 at 10:00 IV Flush (NS 10 ml) 10 ml PRN PRN IV IV PROTOCOL; Start 08/03/16 at 16:30 Atorvastatin Calcium (Lipitor) 80 mg HS NGT Last administered on 08/06/16 20: 56; Admin Dose 80 MG; Start 08/03/16 at 21:00 Acetaminophen 650 mg 650 mg Q6H PRN NGT PAIN AND OR ELEVATED TEMP Last administered on 08/06/16 16:22; Admin Dose 650 MG; Start 08/03/16 at 22:00 Midazolam HCl (Versed) 50 ml @ 1 mls/hr TITRATE IV Last administered on 05:57; Admin Dose 5 MLS/HR; Start 08/03/16 at 22:15 Insulin Aspart (Novolog Insulin Pen) NOVOLOG *MODERATE* ALGORI... Q4 SC Last administered on 08/07/16 08:31; Admin Dose 2 UNIT; Start 08/04/16 at 13:00 Miscellaneous Information 1 ea NOTE XX ; Start 08/04/16 at 09:30 Glucose (Glutose) 15 gm Q15M PRN PO DECREASED GLUCOSE; Start 08/04/16 at 09:30 Glucose (Glutose) 22.5 gm Q15M PRN PO DECREASED GLUCOSE; Start 08/04/16 at 09:30 Dextrose (D50w Syringe) 25 ml Q15M PRN IV DECREASED GLUCOSE; Start 08/04/16 at 09:30 Dextrose (D50w Syringe) 50 ml Q15M PRN IV DECREASED GLUCOSE; Start 08/04/16 at 09:30 Glucagon (Glucagen) 1 mg Q15M PRN IM DECREASED GLUCOSE; Start 08/04/16 at 09:30 Glucose 15 gm 15 gm Q15M PRN BUCCAL DECREASED GLUCOSE; Start 08/04/16 at 09:30 Lidocaine HCl/ Dextrose 500 ml @ 15 mls/hr Q24H IV Last administered on 04:50; Admin Dose 15 MLS/HR; Start 08/04/16 at 13:00 Potassium Chloride/Sodium Chloride 1,000 ml @ 20 mls/hr Q24H IV Last administered on 08/06/16 20:56; Admin Dose 20 MLS/HR; Start 08/04/16 at 13:30 Norepinephrine/ Dextrose (Levophed/D5W) 500 ml @ 1.87 mls/hr TITRATE IV Last administered on 2/11/17at 04:58; Admin Dose 1.87 MLS/HR; Start 08/04/16 at 16:30 Mupirocin (Bactroban) 1 applic BID TOP Last administered on 08/07/16t 08:30; Admin Dose 1 APPLIC; Start 08/05/16 at 11:00; Stop 08/10/16 at 10:59 Digoxin (Digoxin) 0.125 mg DAILY@13 NGT ; Start 08/07/16 at 13:00 JEREMIAH ACEVEDO MD Aug 07, 2016 08:47
--- NOTE | 2016-08-07 09:58 | CONS ---
Date/Time of Note Date/Time of Note DATE: 08/07/16 TIME: 09:54 Assessment/Plan Assessment/Plan Additional Assessment/Plan 1. Acute kidney injury versus acute kidney injury on chronic kidney disease secondary to cardiorenal syndrome. 2. Acute congestive heart failure exacerbation with pulmonary edema. 3. Acute Non-ST elevation myocardial infarction. s/p Cardiac arrest 4. Acute hypoxemic respiratory failure, currently intubated secondary to acute pulmonary edema. 12. Systemic inflammatory response syndrome versus sepsis from probable underlying pneumonia. 13. Acute encephalopathy, multifactorial. PLAN: Cr stable, 1.3 liter rine output in last 24 hour heparin gtt has been on hold No labs today to review will follow up discussed with nurse at bedside about lab draw Consultation Date/Type/Reason Admit Date/Time Aug 03, 2016 at 04:29 Initial Consult Date 08/03/16 Type of Consultation: NEPHROLOGY Referring Provider: JEREMIAH ACEVEDO MD 24 HR Interval Summary Free Text/Dictation making good urine output, no labs today to review Exam/Review of Systems Vital Signs Vitals Vital Signs Date Time Temp Pulse Resp B/P Pulse Ox O2 Delivery O2 Flow Rate FiO2 08/07/16 08:00 93 08/07/16 08:00 30 08/07/16 06:30 22 121/80 Mechanical Ventilator 08/07/16 05:38 100 08/07/16 04:00 98.9 Intake and Output 08/06/16 08/06/16 08/07/16 15:00 23:00 07:00 Intake Total 744.34 ml 640.62 ml 652.5 ml Output Total 325 ml 240 ml 680 ml Balance 419.34 ml 400.62 ml -27.5 ml Exam Sedated and intubated ENMT: intubated Respiratory: Coarse breath sounds bilaterally with scattered crackles, no wheezing Cardiovascular: irregular rhythm, other (S1-S2 heard), systolic murmur Gastrointestinal: bowel sounds, non-tender, other (No grimacing with palpation) , soft Extremities: edema Results Result Diagram: 08/06/16 0400 08/06/16 0400 Results 24 hrs Laboratory Tests Test 08/06/16 12:37 08/06/16 16:12 08/06/16 21:03 08/07/16 01:20 Bedside Glucose 157 154 114 119 Test 08/07/16 05:00 08/07/16 08:08 Bedside Glucose 149 180 Medications Medications Current Medications Piperacillin Sod/ Tazobactam Sod (Zosyn 2.25gm/ 50ml (Pmx)) 50 ml @ 100 mls/hr Q8 IVPB Last administered on 08/07/16 05:04; Admin Dose 100 MLS/HR; Start 08/03 at 06:00 Aspirin (Aspirin) 81 mg DAILY NGT Last administered on 08/07/16 08:29; Admin Dose 81 MG; Start 08/03/16 at 09:00 Famotidine 20 mg 20 mg DAILY IV Last administered on 08/07/16 08:29; Admin Dose 20 MG; Start 08/03/16 at 09:00 Fentanyl (Sublimaze) 100 ml @ 5 mls/hr TITRATE IV Last administered on 23:34; Admin Dose 5 MLS/HR; Start 08/03/16 at 10:00 IV Flush (NS 10 ml) 10 ml PRN PRN IV IV PROTOCOL; Start 08/03/16 at 16:30 Atorvastatin Calcium (Lipitor) 80 mg HS NGT Last administered on 08/06/16 20: 56; Admin Dose 80 MG; Start 08/03/16 at 21:00 Acetaminophen 650 mg 650 mg Q6H PRN NGT PAIN AND OR ELEVATED TEMP Last administered on 08/06/16 16:22; Admin Dose 650 MG; Start 08/03/16 at 22:00 Midazolam HCl (Versed) 50 ml @ 1 mls/hr TITRATE IV Last administered on 05:57; Admin Dose 5 MLS/HR; Start 08/03/16 at 22:15 Insulin Aspart (Novolog Insulin Pen) NOVOLOG *MODERATE* ALGORI... Q4 SC Last administered on 08/07/16 08:31; Admin Dose 2 UNIT; Start 08/04/16 at 13:00 Miscellaneous Information 1 ea NOTE XX ; Start 08/04/16 at 09:30 Glucose (Glutose) 15 gm Q15M PRN PO DECREASED GLUCOSE; Start 08/04/16 at 09:30 Glucose (Glutose) 22.5 gm Q15M PRN PO DECREASED GLUCOSE; Start 08/04/16 at 09:30 Dextrose (D50w Syringe) 25 ml Q15M PRN IV DECREASED GLUCOSE; Start 08/04/16 at 09:30 Dextrose (D50w Syringe) 50 ml Q15M PRN IV DECREASED GLUCOSE; Start 08/04/16 at 09:30 Glucagon (Glucagen) 1 mg Q15M PRN IM DECREASED GLUCOSE; Start 08/04/16 at 09:30 Glucose 15 gm 15 gm Q15M PRN BUCCAL DECREASED GLUCOSE; Start 08/04/16 at 09:30 Lidocaine HCl/ Dextrose 500 ml @ 15 mls/hr Q24H IV Last administered on 04:50; Admin Dose 15 MLS/HR; Start 08/04/16 at 13:00 Potassium Chloride/Sodium Chloride 1,000 ml @ 20 mls/hr Q24H IV Last administered on 08/06/16 20:56; Admin Dose 20 MLS/HR; Start 08/04/16 at 13:30 Norepinephrine/ Dextrose (Levophed/D5W) 500 ml @ 1.87 mls/hr TITRATE IV Last administered on 08/07/16 04:58; Admin Dose 1.87 MLS/HR; Start 08/04/16 at 16:30 Mupirocin (Bactroban) 1 applic BID TOP Last administered on 08/07/16 08:30; Admin Dose 1 APPLIC; Start 08/05/16 at 11:00; Stop 08/10/16 at 10:59 Digoxin (Digoxin) 0.125 mg DAILY@13 NGT ; Start 08/07/16 at 13:00 CARYN GALVEZ MD Aug 07, 2016 09:58
--- NOTE | 2016-08-07 10:49 | PN ---
Date/Time of Note Date/Time of Note DATE: 08/07/16 TIME: 10:48 Assessment/Plan VTE Prophylaxis VTE Prophylaxis Intervention: SCD's Lines/Catheters IV Catheter Type (from Nrsg): PICC Line Central line still needed: No Urinary Cath still in place: Yes Reason Cath still needed: urinary retention Assessment/Plan Assessment/Plan Left-sided weakness concerning for CVA VT/Torsades-Cardiac arrest Respiratory failure Acute decompensated systolic congestive heart failure Cardiomyopathy with ejection fraction 35% Paroxysmal atrial fibrillation with rapid ventricular rates Diabetes Mildly elevated troponin Acute kidney injury -IV pressor requirements decreasing. Patient still with atrial fibrillation . Lidocaine being weaned down. Maintain potassium above 4.0 and magnesium above 2.0 Might need to consider amiodarone if rapid ventricular rates do not improve. sw family Subjective 24 Hr Interval Summary Free Text/Dictation The patient remains intubated Exam/Review of Systems Vital Signs Vitals Vital Signs Date Time Temp Pulse Resp B/P Pulse Ox O2 Delivery O2 Flow Rate FiO2 08/07/16 08:00 93 08/07/16 08:00 30 08/07/16 06:30 22 121/80 Mechanical Ventilator 08/07/16 05:38 100 08/07/16 04:00 98.9 Intake and Output 08/06/16 08/06/16 08/07/16 15:00 23:00 07:00 Intake Total 744.34 ml 640.62 ml 687.5 ml Output Total 325 ml 240 ml 790 ml Balance 419.34 ml 400.62 ml -102.5 ml Results Result Diagram: 08/06/16 0400 08/06/16 0400 Results 24 hrs Laboratory Tests Test 08/06/16 12:37 08/06/16 16:12 08/06/16 21:03 08/07/16 01:20 Bedside Glucose 157 154 114 119 Test 08/07/16 05:00 08/07/16 08:08 Bedside Glucose 149 180 Medications Medications Current Medications Piperacillin Sod/ Tazobactam Sod (Zosyn 2.25gm/ 50ml (Pmx)) 50 ml @ 100 mls/hr Q8 IVPB Last administered on 08/07/16 05:04; Admin Dose 100 MLS/HR; Start 08/03 at 06:00 Aspirin (Aspirin) 81 mg DAILY NGT Last administered on 08/07/16 08:29; Admin Dose 81 MG; Start 08/03/16 at 09:00 Famotidine 20 mg 20 mg DAILY IV Last administered on 08/07/16 08:29; Admin Dose 20 MG; Start 08/03/16 at 09:00 Fentanyl (Sublimaze) 100 ml @ 5 mls/hr TITRATE IV Last administered on 23:34; Admin Dose 5 MLS/HR; Start 08/03/16 at 10:00 IV Flush (NS 10 ml) 10 ml PRN PRN IV IV PROTOCOL; Start 08/03/16 at 16:30 Atorvastatin Calcium (Lipitor) 80 mg HS NGT Last administered on 08/06/16 20: 56; Admin Dose 80 MG; Start 08/03/16 at 21:00 Acetaminophen 650 mg 650 mg Q6H PRN NGT PAIN AND OR ELEVATED TEMP Last administered on 08/06/16 16:22; Admin Dose 650 MG; Start 08/03/16 at 22:00 Midazolam HCl (Versed) 50 ml @ 1 mls/hr TITRATE IV Last administered on 05:57; Admin Dose 5 MLS/HR; Start 08/03/16 at 22:15 Insulin Aspart (Novolog Insulin Pen) NOVOLOG *MODERATE* ALGORI... Q4 SC Last administered on 08/07/16 08:31; Admin Dose 2 UNIT; Start 08/04/16 at 13:00 Miscellaneous Information 1 ea NOTE XX ; Start 08/04/16 at 09:30 Glucose (Glutose) 15 gm Q15M PRN PO DECREASED GLUCOSE; Start 08/04/16 at 09:30 Glucose (Glutose) 22.5 gm Q15M PRN PO DECREASED GLUCOSE; Start 08/04/16 at 09:30 Dextrose (D50w Syringe) 25 ml Q15M PRN IV DECREASED GLUCOSE; Start 08/04/16 at 09:30 Dextrose (D50w Syringe) 50 ml Q15M PRN IV DECREASED GLUCOSE; Start 08/04/16 at 09:30 Glucagon (Glucagen) 1 mg Q15M PRN IM DECREASED GLUCOSE; Start 08/04/16 at 09:30 Glucose 15 gm 15 gm Q15M PRN BUCCAL DECREASED GLUCOSE; Start 08/04/16 at 09:30 Lidocaine HCl/ Dextrose 500 ml @ 15 mls/hr Q24H IV Last administered on 04:50; Admin Dose 15 MLS/HR; Start 08/04/16 at 13:00 Potassium Chloride/Sodium Chloride 1,000 ml @ 20 mls/hr Q24H IV Last administered on 08/06/16 20:56; Admin Dose 20 MLS/HR; Start 08/04/16 at 13:30 Norepinephrine/ Dextrose (Levophed/D5W) 500 ml @ 1.87 mls/hr TITRATE IV Last administered on 08/07/16 04:58; Admin Dose 1.87 MLS/HR; Start 08/04/16 at 16:30 Mupirocin (Bactroban) 1 applic BID TOP Last administered on 08/07/16 08:30; Admin Dose 1 APPLIC; Start 08/05/16 at 11:00; Stop 08/10/16 at 10:59 Digoxin (Digoxin) 0.125 mg DAILY@13 NGT ; Start 08/07/16 at 13:00 JENNI GRANT MD Aug 07, 2016 10:49
[2016-08-07] MEDS: LIDOCAINE 2 GM/D5W 500 ML IV SCH ×2 (13:00→20:10)
[2016-08-07] MEDS: DIGOXIN 0.125 MG TAB NGT SCH (13:56)
--- NOTE | 2016-08-07 15:48 | CONS ---
Date/Time of Note Date/Time of Note DATE: 08/07/16 TIME: 15:41 Consult Date/Type/Reason Admit Date/Time Aug 03, 2016 at 04:29 Initial Consult Date 08/04/16 Type of Consultation: Pulm Ordering Provider: JEREMIAH ACEVEDO MD Subjective On levophed, lidocaine, versed, and fentanyl gtt. Sedated on vent. Objective Vital Signs Date Time Temp Pulse Resp B/P Pulse Ox O2 Delivery O2 Flow Rate FiO2 08/07/16 14:45 90 17 86/43 100 Mechanical Ventilator 08/07/16 12:00 97.9 08/07/16 08:00 30 Intake and Output 08/06/16 08/06/16 08/07/16 15:00 23:00 07:00 Intake Total 744.34 ml 640.62 ml 687.5 ml Output Total 325 ml 240 ml 790 ml Balance 419.34 ml 400.62 ml -102.5 ml HEENT: Neck supple; no JVD; no LAD CVS: RRR, S1 and S2 CHEST: Clear ABD: Soft, NT, + BS EXT: No c/c/e Results/Medications Result Diagram: 08/06/16 0400 08/06/16 0400 Results 24 hrs Laboratory Tests Test 08/06/16 16:12 08/06/16 21:03 08/07/16 01:20 08/07/16 05:00 Bedside Glucose 154 114 119 149 Test 08/07/16 08:08 08/07/16 12:38 08/07/16 12:50 Bedside Glucose 180 297 H Lab Scanned Report REFERENCE LAB Medications Current Medications Piperacillin Sod/ Tazobactam Sod (Zosyn 2.25gm/ 50ml (Pmx)) 50 ml @ 100 mls/hr Q8 IVPB Last administered on 08/07/16 13:56; Admin Dose 100 MLS/HR; Start 08/03 at 06:00 Aspirin (Aspirin) 81 mg DAILY NGT Last administered on 08/07/16 08:29; Admin Dose 81 MG; Start 08/03/16 at 09:00 Famotidine 20 mg 20 mg DAILY IV Last administered on 08/07/16 08:29; Admin Dose 20 MG; Start 08/03/16 at 09:00 Fentanyl (Sublimaze) 100 ml @ 5 mls/hr TITRATE IV Last administered on 23:34; Admin Dose 5 MLS/HR; Start 08/03/16 at 10:00 IV Flush (NS 10 ml) 10 ml PRN PRN IV IV PROTOCOL; Start 08/03/16 at 16:30 Atorvastatin Calcium (Lipitor) 80 mg HS NGT Last administered on 08/06/16 20: 56; Admin Dose 80 MG; Start 08/03/16 at 21:00 Acetaminophen 650 mg 650 mg Q6H PRN NGT PAIN AND OR ELEVATED TEMP Last administered on 08/06/16 16:22; Admin Dose 650 MG; Start 08/03/16 at 22:00 Midazolam HCl (Versed) 50 ml @ 1 mls/hr TITRATE IV Last administered on 05:57; Admin Dose 5 MLS/HR; Start 08/03/16 at 22:15 Insulin Aspart (Novolog Insulin Pen) NOVOLOG *MODERATE* ALGORI... Q4 SC Last administered on 08/07/16 12:53; Admin Dose 8 UNIT; Start 08/04/16 at 13:00 Miscellaneous Information 1 ea NOTE XX ; Start 08/04/16 at 09:30 Glucose (Glutose) 15 gm Q15M PRN PO DECREASED GLUCOSE; Start 08/04/16 at 09:30 Glucose (Glutose) 22.5 gm Q15M PRN PO DECREASED GLUCOSE; Start 08/04/16 at 09:30 Dextrose (D50w Syringe) 25 ml Q15M PRN IV DECREASED GLUCOSE; Start 08/04/16 at 09:30 Dextrose (D50w Syringe) 50 ml Q15M PRN IV DECREASED GLUCOSE; Start 08/04/16 at 09:30 Glucagon (Glucagen) 1 mg Q15M PRN IM DECREASED GLUCOSE; Start 08/04/16 at 09:30 Glucose 15 gm 15 gm Q15M PRN BUCCAL DECREASED GLUCOSE; Start 08/04/16 at 09:30 Lidocaine HCl/ Dextrose 500 ml @ 15 mls/hr Q24H IV Last administered on 04:50; Admin Dose 15 MLS/HR; Start 08/04/16 at 13:00 Potassium Chloride/Sodium Chloride 1,000 ml @ 20 mls/hr Q24H IV Last administered on 08/06/16 20:56; Admin Dose 20 MLS/HR; Start 08/04/16 at 13:30 Norepinephrine/ Dextrose (Levophed/D5W) 500 ml @ 1.87 mls/hr TITRATE IV Last administered on 08/07/16 04:58; Admin Dose 1.87 MLS/HR; Start 08/04/16 at 16:30 Mupirocin (Bactroban) 1 applic BID TOP Last administered on 08/07/16 08:30; Admin Dose 1 APPLIC; Start 08/05/16 at 11:00; Stop 08/10/16 at 10:59 Digoxin (Digoxin) 0.125 mg DAILY@13 NGT Last administered on 08/07/16 13:56; Admin Dose 0.125 MG; Start 08/07/16 at 13:00 Assessment/Plan Additional Assessment/Plan IMP: 1. Shock 2. s/p AMI 3. Torsades on lidocaine 4. Renal failure 5. Anoxic encephalopathy 6. Anemia RECS: 1. D/C versed 2. May increase fentanyl as needed 3. Reassess mental status 4. Abx 5. Consider change lidocaine to amio 6. Vent support 35 min CC time NAFISA RHODES MD Aug 07, 2016 15:48
--- NOTE | 2016-08-07 19:27 | RADRPT ---
PROCEDURE: XR Abdomen. CLINICAL INDICATION: Enteric catheter placement . TECHNIQUE: Single frontal view of the abdomen is available for review. COMPARISON: None. FINDINGS: There is an enteric catheter in place with tip extending into the stomach. Gastric distension is no hans. There is no evidence of free air.. There is no evidence of obstruction. There are no abnormal calcifications overlying the urinary tracts. The osseous structures are unremarkable. Bibasilar pulm onary atelectasis or consolidations is seen. Cardiomegaly is present. IMPRESSION: 1. Nasogastric tube in place with tip extending into the stomach. 2. Gastric distension. 3. Bibasilar pulmonary consolidations.. RPTAT: [facility] .Osmany Horvath MD, MD Date Time Electronically viewed and signed by .Osmany Horvath MD, on 08/07/2016 19:27 .L/
[2016-08-07] MEDS: FENTAnyl (DRIP) 1000 mcg/100mL 100 ML IV SCH (20:09)
[2016-08-07] MEDS: ATORVASTATIN 80 MG TAB NGT SCH (20:49)
[2016-08-08] VITALS (104 sets, daily range): BP systolic 52–139; BP diastolic 28–113; PULSE 87–147; RESP 10–25
[2016-08-08] MEDS: INSULIN ASPART [NOVOLOG] 3 ML PEN SC SCH ×6 (01:42→21:32)
[2016-08-08 05:18] LABS: AADO2 Arterial 102.5 mmHg (7.0-24.0); Allen Test ACCEPTAB; Arterial Base Excess -5.8 mmol/L (-3.0-3); Arterial COHb 0.1 % (0.0-3.0); Arterial Fraction of Oxyhgb 92.8 % (93.0-99.0); Arterial HCO3 19.2 mmol/L (22.0-26.0); Arterial MetHb 0.4 % (0.0-1.5); Arterial Total Hemglobin 10.3 g/dl (12.0-18.0); MODE VENT - AC
[2016-08-08 05:25] LABS: BASOPHILS % 0.2 % (0.0-2.0); EOSINOPHILS # 0.4 10^3/ul (0.0-0.5); EOSINOPHILS % 3.9 % (0.0-7.0); HEMATOCRIT 24.3 % (37.0-47.0); HEMOGLOBIN 7.1 g/dl (12.0-16.0); LYMPHOCYTES % 9.6 % (15.0-51.0); MEAN CORPUSCULAR HEMOGLOBIN 30.1 pg (29.0-33.0); MEAN CORPUSCULAR HGB CONC 29.1 g/dl (32.0-37.0); MEAN CORPUSCULAR VOLUME 103.4 fl (82.0-101.0); MEAN PLATELET VOLUME 10.9 fl (7.4-10.4); MONOCYTE # 0.3 10^3/ul (0.3-0.9); MONOCYTES % 3.3 % (0.0-11.0); NEUTROPHIL # 8.4 10^3/ul (1.6-7.5); PLATELET COUNT 118 10^3/UL (140-440); RED BLOOD COUNT 2.35 10^6/ul (4.20-5.40); RED CELL DISTRIBUTION WIDTH 18.3 % (11.5-14.5); UNCORRECTED WBC 10.1 10^3/ul (4.8-10.8); WHITE BLOOD COUNT 10.1 10^3/ul (4.8-10.8)
[2016-08-08] MEDS: PIPER-TAZO 2.25 GM (PMX) 50 ML IVPB SCH ×3 (05:36→22:03)
--- NOTE | 2016-08-08 06:08 | PN ---
DATE: 08/07/2016 FAMILY CONFERENCE NOTE I had a conversation with patient's son. Explained her current medical condition and the fact that s he has not significantly improved from a neurological standpoint and the concern that I have is that she will not show significant cognitive improvement. Prior day I had a conversation with all famil y members. At this time the eldest son was available only. He seems to be very aware of the fact t hat his mother has a very poor prognosis; however, at this time will walk the family through really the first stages to assist in making a decision on whether or not they want their mother to undergo cardiopulmonary resuscitation since she has had already 2 episodes of ventricular tachycardia requir ing ACLS. We will continue to follow daily, support family members. We will speak to them once aga in today on 08/07/2016, update them and broach the conversation once again on the code status. Dictated By: SABRA PAZ MD, LP/SUHAIL Conf#: [id number] DID#: [id number]
[2016-08-08 06:29] LABS: CONDITION 1; LH ANALYZER COMMENTS 1
[2016-08-08 07:17] LABS: POTASSIUM 3.7 mmol/L (3.5-5.1)
[2016-08-08 07:19] LABS: CREATININE 1.9 mg/dl (0.44-1.00)
[2016-08-08 07:20] LABS: CALCIUM 7.6 mg/dl (8.4-10.2)
[2016-08-08] MEDS ORDERED: SOD CHLORIDE 0.9% 250 ML IV* ONE (08:00)
[2016-08-08] MEDS ORDERED: FUROSEMIDE 40 MG INJ IV SCH (08:00)
--- NOTE | 2016-08-08 08:37 | PN ---
Date/Time of Note Date/Time of Note DATE: 08/08/16 TIME: 08:31 Assessment/Plan VTE Prophylaxis VTE Prophylaxis Intervention: contraindicated VTE Contraindication Reason: bleeding Lines/Catheters IV Catheter Type (from Nrsg): Saline Lock Urinary Cath still in place: Yes Reason Cath still needed: urinary retention Assessment/Plan Assessment/Plan 1. Acute hypoxemic resp failure currently vent dependent 2/2 #2 - continue with weaning as tolerated, Pulm c/s appreciated. - mild improvement 2. Severe Acute CHF with pulmonary edema -continue cardiology recs - lasix prn, EF 35%, stage II diastolic dysfunction * Impending shock, ?cardiogenic - continue with pressor support - wean as tolerated - increased pressor support 3. NSTEMI - 2/2 to cardiac arrest - monitor trend 4. Acute renal insufficiency - monitor acute changes, renally adjust medications , as per clinical course. - worsening from ATN - monitor changes 5. Anion gap metabolic acidosis / #4 - monitor - on bicarb drip - wean as tolerated 6. DM 2: uncontrolled - insulin gtt, hgba1c 6.5 - insulin gtt 7. SIRS vs Sepsis from probable underlying Pneumonia - aspiration - continue with antibiotics, continue with pressor support - worsening leukocytosis 8. Acute Encephalopathy R/o CVA - will wait for MRI - once patient is more clinically stable - appreciate neurology recs 9. HTN essential - * Patient came in uncontrolled > borderline hypotensive - on dopamine 10. Anemia - acute blood loss - transfuse 2 units prbcs, monitor acute changes 11. GI ppx - protonix 12. DVT ppx - scds dispo - f/u recs, monitor acute changes, continue with ABG, labs, as per clinical course - prognosis - poor - at this time in the next couple of days, determination to see which direction the care plan needs to go will be made. If there is no clinical improvement on the patient, a more comfort measures approach will be taken, Transfuse 2 units PRBCs monitor H/H this critical care note took greater than 40 min to complete Subjective 24 Hr Interval Summary Free Text/Dictation Patient had required increased pressor support. She had a lot of residuals from her NGT, needed suctioning. Otherwise noted low hgb level. spoke to the nurse about the care plan. 15 minutes spent. Exam/Review of Systems Vital Signs Vitals Vital Signs Date Time Temp Pulse Resp B/P Pulse Ox O2 Delivery O2 Flow Rate FiO2 08/08/16 08:20 116 08/08/16 06:15 18 89/72 100 Mechanical Ventilator 08/08/16 05:46 40 08/08/16 04:00 97.8 Intake and Output 08/07/16 08/07/16 08/08/16 15:00 23:00 07:00 Intake Total 574.37 ml 439.40 ml 650.76 ml Output Total 530 ml 365 ml 175 ml Balance 44.37 ml 74.40 ml 475.76 ml Exam Gen Doris: intubated and sedated HEENT: NC/AT, PERRLA, ETT NECK: supple, no thyromegaly THORAX: symmetrical, no obvious deformities CV: S1S2, tachycardiac, III/ systolic murmur - mild improvement Lungs: coarse breath sounds, worsening scattered crackles - mild improvement Abd: soft, NT/distended, +BS, no rebound, no guarding, neg HSM EXT: 2+ bilateral lower extremity edema, no ecchymosis, no clubbing, onychomycosis Neuro: intubated, sedated Psych: cannot assess Skin: decreased turgor Results Result Diagram: 08/08/16 0420 08/08/16 0400 Results 24 hrs Laboratory Tests Test 08/07/16 12:38 08/07/16 12:50 08/07/16 16:11 08/07/16 20:47 Lab Scanned Report REFERENCE LAB Bedside Glucose 297 H 160 173 Test 08/08/16 01:36 08/08/16 04:00 08/08/16 04:20 08/08/16 05:00 Bedside Glucose 170 Anion Gap 24 #H Blood Urea Nitrogen 41 H Calcium Level 7.6 L Carbon Dioxide Level 17 L Chloride Level 116 H Creatinine 1.90 H Glucose Level 265 H Lactic Acid Level 1.3 Potassium Level 3.7 Sodium Level 153 H Basophils # 0.0 Basophils % 0.2 Blood Morphology Comment Eosinophils # 0.4 Eosinophils % 3.9 Hematocrit 24.3 L Hemoglobin 7.1 L Lymphocytes # 1.0 Lymphocytes % 9.6 L Magnesium Level 2.2 Mean Corpuscular Hemoglobin 30.1 Mean Corpuscular Hemoglobin Concent 29.1 L Mean Corpuscular Volume 103.4 H Mean Platelet Volume 10.9 H Monocytes # 0.3 Monocytes % 3.3 Neutrophils # 8.4 H Neutrophils % 83.0 H Nucleated Red Blood Cells # 0.0 Nucleated Red Blood Cells % 0.0 Platelet Count 118 #L Red Blood Count 2.35 L Red Cell Distribution Width 18.3 #H White Blood Count 10.1 # Arterial Blood HCO3 19.2 L Arterial Blood Base Excess -5.8 L Arterial Blood Oxygen Saturation 93.3 L Morteza Test ACCEPTAB Arterial Blood Gas Puncture Site Right Radial Arterial Blood Carboxyhemoglobin 0.1 Arterial Blood Date Drawn 08/08/2016 4:55:49 AM Arterial Blood Methemoglobin 0.4 Arterial Blood pCO2 (Temp correct) 35.5 Arterial Blood pH (Temp corrected) 7.350 Arterial Blood pO2 (Temp corrected) 69.7 L Blood Gas A-a O2 Differential 102.5 H Blood Gas Actual Respiration Rate 18 Blood Gas Inspiratory Pressure 29.0 Blood Gas Low PEEP Setting 5.0 Blood Gas Modality VENT - AC Blood Gas Notified Time 08/08/2016 5:18:41 AM Blood Gas Notified Whom MG Blood Gas Respiration Rate 14.0 Blood Gas Specimen Source Blood arterial Blood Gas Temperature 37.0 Blood Gas Tidal Volume 500.0 FiO2 30.0 Oxyhemoglobin Percent 92.8 L Total Hemoglobin 10.3 L Test 08/08/16 05:37 Bedside Glucose 131 Medications Medications Current Medications Piperacillin Sod/ Tazobactam Sod (Zosyn 2.25gm/ 50ml (Pmx)) 50 ml @ 100 mls/hr Q8 IVPB Last administered on 08/08/16 05:36; Admin Dose 100 MLS/HR; Start 08/03 at 06:00 Aspirin (Aspirin) 81 mg DAILY NGT Last administered on 08/07/16 08:29; Admin Dose 81 MG; Start 08/03/16 at 09:00 Famotidine 20 mg 20 mg DAILY IV Last administered on 08/07/16 08:29; Admin Dose 20 MG; Start 08/03/16 at 09:00 Fentanyl (Sublimaze) 100 ml @ 5 mls/hr TITRATE IV Last administered on 20:09; Admin Dose 5 MLS/HR; Start 08/03/16 at 10:00 IV Flush (NS 10 ml) 10 ml PRN PRN IV IV PROTOCOL; Start 08/03/16 at 16:30 Atorvastatin Calcium (Lipitor) 80 mg HS NGT Last administered on 08/07/16 20: 49; Admin Dose 80 MG; Start 08/03/16 at 21:00 Acetaminophen 650 mg 650 mg Q6H PRN NGT PAIN AND OR ELEVATED TEMP Last administered on 08/06/16 16:22; Admin Dose 650 MG; Start 08/03/16 at 22:00 Midazolam HCl (Versed) 50 ml @ 1 mls/hr TITRATE IV Last administered on 19:12; Admin Dose 3 MLS/HR; Start 08/03/16 at 22:15 Insulin Aspart (Novolog Insulin Pen) NOVOLOG *MODERATE* ALGORI... Q4 SC Last administered on 08/08/16 01:42; Admin Dose 2 UNIT; Start 08/04/16 at 13:00 Miscellaneous Information 1 ea NOTE XX ; Start 08/04/16 at 09:30 Glucose (Glutose) 15 gm Q15M PRN PO DECREASED GLUCOSE; Start 08/04/16 at 09:30 Glucose (Glutose) 22.5 gm Q15M PRN PO DECREASED GLUCOSE; Start 08/04/16 at 09:30 Dextrose (D50w Syringe) 25 ml Q15M PRN IV DECREASED GLUCOSE; Start 08/04/16 at 09:30 Dextrose (D50w Syringe) 50 ml Q15M PRN IV DECREASED GLUCOSE; Start 08/04/16 at 09:30 Glucagon (Glucagen) 1 mg Q15M PRN IM DECREASED GLUCOSE; Start 08/04/16 at 09:30 Glucose 15 gm 15 gm Q15M PRN BUCCAL DECREASED GLUCOSE; Start 08/04/16 at 09:30 Lidocaine HCl/ Dextrose 500 ml @ 15 mls/hr Q24H IV Last administered on 20:10; Admin Dose 15 MLS/HR; Start 08/04/16 at 13:00 Potassium Chloride/Sodium Chloride 1,000 ml @ 20 mls/hr Q24H IV Last administered on 08/06/16 20:56; Admin Dose 20 MLS/HR; Start 08/04/16 at 13:30 Norepinephrine/ Dextrose (Levophed/D5W) 500 ml @ 1.87 mls/hr TITRATE IV Last administered on 08/07/16 04:58; Admin Dose 1.87 MLS/HR; Start 08/04/16 at 16:30 Mupirocin (Bactroban) 1 applic BID TOP Last administered on 08/07/16 20:49; Admin Dose 1 APPLIC; Start 08/05/16 at 11:00; Stop 08/10/16 at 10:59 Digoxin 0.125 mg 0.125 mg DAILY@13 NGT Last administered on 08/07/16 13:56; Admin Dose 0.125 MG; Start 08/07/16 at 13:00 Sodium Chloride (NS) 250 ml @ 0 mls/hr Q0M ONCE IV* ; Start 08/08/16 at 08:00; Stop 08/08/16 at 08:01 Furosemide (Lasix) 20 mg ONCE IV ; Start 08/08/16 at 08:00; Stop 08/09/16 at 07: 59 JEREMIAH ACEVEDO MD Aug 08, 2016 08:37
[2016-08-08] MEDS: MUPIROCIN 2% 22 GM OINT TOP SCH ×2 (09:30→21:06)
[2016-08-08] MEDS: ASPIRIN 81 MG TAB NGT SCH (09:30)
[2016-08-08] MEDS ORDERED: DIGOXIN 500 MCG INJ IV ONE (09:30)
[2016-08-08] MEDS: FAMOTIDINE 20 MG INJ IV SCH (09:30)
--- NOTE | 2016-08-08 09:42 | RADRPT ---
PROCEDURE: XR Chest. CLINICAL INDICATION: Shortness of breath. TECHNIQUE: Single frontal view. COMPARISON: 08/06/2016. FINDINGS: The endotracheal tube, nasogastric tube, and left arm PICC line remain in satisfactory position. Pu lmonary edema and bibasilar atelectasis are unchanged. The heart is enlarged. There are small bilateral pleural effusions. There is no pneumothorax. IMPRESSION: 1. No change from 08/06/2016. RPTAT: QQ .Reynaldo Woods MD, MD Date Time Electronically viewed and signed by .Reynaldo Woods MD, MD on 08/08/2016 09:42 .R/
[2016-08-08] MEDS ORDERED: POTASSIUM CHLORIDE 50 ML IVPB ONE (10:00)
[2016-08-08] MEDS: AMIODARONE 900 MG in DEXTROSE 5% 482 ML IV SCH (10:22)
--- NOTE | 2016-08-08 10:34 | CONS ---
Date/Time of Note Date/Time of Note DATE: 08/08/16 TIME: 10:29 Assessment/Plan Assessment/Plan Additional Assessment/Plan 1. Acute kidney injury versus acute kidney injury on chronic kidney disease secondary to cardiorenal syndrome. 2. Acute congestive heart failure exacerbation with pulmonary edema. 3. Acute Non-ST elevation myocardial infarction. s/p Cardiac arrest 4. Acute hypoxemic respiratory failure, currently intubated secondary to acute pulmonary edema. 12. Systemic inflammatory response syndrome versus sepsis from probable underlying pneumonia. 13. Acute encephalopathy, multifactorial. PLAN: Cr stable, 1.1 liter rine output in last 24 hour, BUN/Cr rising, Na trending up wiht hyperchloremia heparin gtt has been on hold plan is to transfuse 2 units P RBC will follow up Pt is not waking up off sedation so further goals of care need to be discussed with family Consultation Date/Type/Reason Admit Date/Time Aug 03, 2016 at 04:29 Initial Consult Date 08/03/16 Type of Consultation: NEPHROLOGY Referring Provider: JEREMIAH ACEVEDO MD 24 HR Interval Summary Free Text/Dictation pt is not waking up off sedation, U/O 1.1 Liter, BUN/Cr slightly went up , remains intubated, on Fio2 30% Exam/Review of Systems Vital Signs Vitals Vital Signs Date Time Temp Pulse Resp B/P Pulse Ox O2 Delivery O2 Flow Rate FiO2 08/08/16 09:00 142 19 132/68 98 Mechanical Ventilator 08/08/16 08:00 97.7 08/08/16 08:00 40 Intake and Output 08/07/16 08/07/16 08/08/16 15:00 23:00 07:00 Intake Total 574.37 ml 439.40 ml 721.26 ml Output Total 530 ml 365 ml 185 ml Balance 44.37 ml 74.40 ml 536.26 ml Exam Sedated and intubated ENMT: intubated Respiratory: Coarse breath sounds bilaterally with scattered crackles, no wheezing Cardiovascular: irregular rhythm, other (S1-S2 heard), systolic murmur Gastrointestinal: bowel sounds, non-tender, other (No grimacing with palpation) , soft Extremities: edema Results Result Diagram: 08/08/16 0420 08/08/16 0400 Results 24 hrs Laboratory Tests Test 08/07/16 12:38 2/11/17 12:50 08/07/16 16:11 08/07/16 20:47 Lab Scanned Report REFERENCE LAB Bedside Glucose 297 H 160 173 Test 08/08/16 01:36 08/08/16 04:00 08/08/16 04:20 08/08/16 05:00 Bedside Glucose 170 Anion Gap 24 #H Blood Urea Nitrogen 41 H Calcium Level 7.6 L Carbon Dioxide Level 17 L Chloride Level 116 H Creatinine 1.90 H Glucose Level 265 H Lactic Acid Level 1.3 Potassium Level 3.7 Sodium Level 153 H Basophils # 0.0 Basophils % 0.2 Blood Morphology Comment Eosinophils # 0.4 Eosinophils % 3.9 Hematocrit 24.3 L Hemoglobin 7.1 L Lymphocytes # 1.0 Lymphocytes % 9.6 L Magnesium Level 2.2 Mean Corpuscular Hemoglobin 30.1 Mean Corpuscular Hemoglobin Concent 29.1 L Mean Corpuscular Volume 103.4 H Mean Platelet Volume 10.9 H Monocytes # 0.3 Monocytes % 3.3 Neutrophils # 8.4 H Neutrophils % 83.0 H Nucleated Red Blood Cells # 0.0 Nucleated Red Blood Cells % 0.0 Platelet Count 118 #L Red Blood Count 2.35 L Red Cell Distribution Width 18.3 #H White Blood Count 10.1 # Arterial Blood HCO3 19.2 L Arterial Blood Base Excess -5.8 L Arterial Blood Oxygen Saturation 93.3 L Morteza Test ACCEPTAB Arterial Blood Gas Puncture Site Right Radial Arterial Blood Carboxyhemoglobin 0.1 Arterial Blood Date Drawn 08/08/2016 4:55:49 AM Arterial Blood Methemoglobin 0.4 Arterial Blood pCO2 (Temp correct) 35.5 Arterial Blood pH (Temp corrected) 7.350 Arterial Blood pO2 (Temp corrected) 69.7 L Blood Gas A-a O2 Differential 102.5 H Blood Gas Actual Respiration Rate 18 Blood Gas Inspiratory Pressure 29.0 Blood Gas Low PEEP Setting 5.0 Blood Gas Modality VENT - AC Blood Gas Notified Time 08/08/2016 5:18:41 AM Blood Gas Notified Whom MG Blood Gas Respiration Rate 14.0 Blood Gas Specimen Source Blood arterial Blood Gas Temperature 37.0 Blood Gas Tidal Volume 500.0 FiO2 30.0 Oxyhemoglobin Percent 92.8 L Total Hemoglobin 10.3 L Test 08/08/16 05:37 08/08/16 09:26 Bedside Glucose 131 182 Medications Medications Current Medications Piperacillin Sod/ Tazobactam Sod (Zosyn 2.25gm/ 50ml (Pmx)) 50 ml @ 100 mls/hr Q8 IVPB Last administered on 08/08/16 05:36; Admin Dose 100 MLS/HR; Start 08/03 at 06:00 Aspirin (Aspirin) 81 mg DAILY NGT Last administered on 08/08/16 09:30; Admin Dose 81 MG; Start 08/03/16 at 09:00 Famotidine 20 mg 20 mg DAILY IV Last administered on 08/08/16 09:30; Admin Dose 20 MG; Start 08/03/16 at 09:00 Fentanyl (Sublimaze) 100 ml @ 5 mls/hr TITRATE IV Last administered on 20:09; Admin Dose 5 MLS/HR; Start 08/03/16 at 10:00 IV Flush (NS 10 ml) 10 ml PRN PRN IV IV PROTOCOL; Start 08/03/16 at 16:30 Atorvastatin Calcium (Lipitor) 80 mg HS NGT Last administered on 08/07/16 20: 49; Admin Dose 80 MG; Start 08/03/16 at 21:00 Acetaminophen 650 mg 650 mg Q6H PRN NGT PAIN AND OR ELEVATED TEMP Last administered on 08/06/16 16:22; Admin Dose 650 MG; Start 08/03/16 at 22:00 Midazolam HCl (Versed) 50 ml @ 1 mls/hr TITRATE IV Last administered on 19:12; Admin Dose 3 MLS/HR; Start 08/03/16 at 22:15 Insulin Aspart (Novolog Insulin Pen) NOVOLOG *MODERATE* ALGORI... Q4 SC Last administered on 08/08/16 09:36; Admin Dose 2 UNIT; Start 08/04/16 at 13:00 Miscellaneous Information 1 ea NOTE XX ; Start 08/04/16 at 09:30 Glucose (Glutose) 15 gm Q15M PRN PO DECREASED GLUCOSE; Start 08/04/16 at 09:30 Glucose (Glutose) 22.5 gm Q15M PRN PO DECREASED GLUCOSE; Start 08/04/16 at 09:30 Dextrose (D50w Syringe) 25 ml Q15M PRN IV DECREASED GLUCOSE; Start 08/04/16 at 09:30 Dextrose (D50w Syringe) 50 ml Q15M PRN IV DECREASED GLUCOSE; Start 08/04/16 at 09:30 Glucagon (Glucagen) 1 mg Q15M PRN IM DECREASED GLUCOSE; Start 08/04/16 at 09:30 Glucose 15 gm 15 gm Q15M PRN BUCCAL DECREASED GLUCOSE; Start 08/04/16 at 09:30 Lidocaine HCl/ Dextrose 500 ml @ 15 mls/hr Q24H IV Last administered on 20:10; Admin Dose 15 MLS/HR; Start 08/04/16 at 13:00 Potassium Chloride/Sodium Chloride 1,000 ml @ 20 mls/hr Q24H IV Last administered on 08/06/16 20:56; Admin Dose 20 MLS/HR; Start 08/04/16 at 13:30 Norepinephrine/ Dextrose (Levophed/D5W) 500 ml @ 1.87 mls/hr TITRATE IV Last administered on 08/08/16 09:37; Admin Dose 37.5 MLS/HR; Start 08/04/16 at 16:30 Mupirocin (Bactroban) 1 applic BID TOP Last administered on 08/08/16 09:30; Admin Dose 1 APPLIC; Start 08/05/16 at 11:00; Stop 08/10/16 at 10:59 Digoxin 0.125 mg 0.125 mg DAILY@13 NGT Last administered on 08/07/16 13:56; Admin Dose 0.125 MG; Start 08/07/16 at 13:00 Sodium Chloride (NS) 250 ml @ 0 mls/hr Q0M ONCE IV* ; Start 08/08/16 at 08:00; Stop 08/08/16 at 08:01 Furosemide (Lasix) 20 mg ONCE IV ; Start 08/08/16 at 08:00; Stop 08/09/16 at 07: 59 Digoxin 125 mcg 125 mcg ONCE ONCE IV Last administered on 08/08/16 09:29; Admin Dose 125 MCG; Start 08/08/16 at 09:30; Stop 08/08/16 at 09:31 Amiodarone HCl 900 mg/Dextrose 500 ml @ 16.7 mls/hr Q24H IV Last administered on 08/08/16 10:22; Admin Dose 16.7 MLS/HR; Start 08/08/16 at 10:00 Potassium Chloride (KCl 10 MEQ/50 ML SW) 50 ml @ 50 mls/hr ONCE ONCE IVPB ; Start 08/08/16 at 10:00; Stop 08/08/16 at 10:59 CARYN GALVEZ MD Aug 08, 2016 10:34
[2016-08-08] MEDS: D5W + KCL 20 MEQ 1,000 ML IV SCH (11:30)
[2016-08-08] MEDS ORDERED: PHENYLephrine 80 MG in DEXTROSE 5% 242 ML IV SCH (12:00)
--- NOTE | 2016-08-08 12:19 | CONS ---
Date/Time of Note Date/Time of Note DATE: 08/08/16 TIME: 12:11 Consult Date/Type/Reason Admit Date/Time Aug 03, 2016 at 04:29 Initial Consult Date 08/04/16 Type of Consultation: neurology Ordering Provider: JEREMIAH ACEVEDO MD Subjective Off sedation, unresponsive Objective Vital Signs Date Time Temp Pulse Resp B/P Pulse Ox O2 Delivery O2 Flow Rate FiO2 08/08/16 12:00 97.7 134 15 61/45 100 Mechanical Ventilator 08/08/16 08:00 40 Intake and Output 08/07/16 08/07/16 08/08/16 15:00 23:00 07:00 Intake Total 574.37 ml 439.40 ml 721.26 ml Output Total 530 ml 365 ml 185 ml Balance 44.37 ml 74.40 ml 536.26 ml Results/Medications Result Diagram: 08/08/16 0420 08/08/16 0400 Results 24 hrs Laboratory Tests Test 08/07/16 12:38 08/07/16 12:50 08/07/16 16:11 08/07/16 20:47 Lab Scanned Report REFERENCE LAB Bedside Glucose 297 H 160 173 Test 08/08/16 01:36 08/08/16 04:00 08/08/16 04:20 08/08/16 05:00 Bedside Glucose 170 Anion Gap 24 #H Blood Urea Nitrogen 41 H Calcium Level 7.6 L Carbon Dioxide Level 17 L Chloride Level 116 H Creatinine 1.90 H Glucose Level 265 H Lactic Acid Level 1.3 Potassium Level 3.7 Sodium Level 153 H Basophils # 0.0 Basophils % 0.2 Blood Morphology Comment Eosinophils # 0.4 Eosinophils % 3.9 Hematocrit 24.3 L Hemoglobin 7.1 L Lymphocytes # 1.0 Lymphocytes % 9.6 L Magnesium Level 2.2 Mean Corpuscular Hemoglobin 30.1 Mean Corpuscular Hemoglobin Concent 29.1 L Mean Corpuscular Volume 103.4 H Mean Platelet Volume 10.9 H Monocytes # 0.3 Monocytes % 3.3 Neutrophils # 8.4 H Neutrophils % 83.0 H Nucleated Red Blood Cells # 0.0 Nucleated Red Blood Cells % 0.0 Platelet Count 118 #L Red Blood Count 2.35 L Red Cell Distribution Width 18.3 #H White Blood Count 10.1 # Arterial Blood HCO3 19.2 L Arterial Blood Base Excess -5.8 L Arterial Blood Oxygen Saturation 93.3 L Morteza Test ACCEPTAB Arterial Blood Gas Puncture Site Right Radial Arterial Blood Carboxyhemoglobin 0.1 Arterial Blood Date Drawn 08/08/2016 4:55:49 AM Arterial Blood Methemoglobin 0.4 Arterial Blood pCO2 (Temp correct) 35.5 Arterial Blood pH (Temp corrected) 7.350 Arterial Blood pO2 (Temp corrected) 69.7 L Blood Gas A-a O2 Differential 102.5 H Blood Gas Actual Respiration Rate 18 Blood Gas Inspiratory Pressure 29.0 Blood Gas Low PEEP Setting 5.0 Blood Gas Modality VENT - AC Blood Gas Notified Time 08/08/2016 5:18:41 AM Blood Gas Notified Whom MG Blood Gas Respiration Rate 14.0 Blood Gas Specimen Source Blood arterial Blood Gas Temperature 37.0 Blood Gas Tidal Volume 500.0 FiO2 30.0 Oxyhemoglobin Percent 92.8 L Total Hemoglobin 10.3 L Test 08/08/16 05:37 08/08/16 09:26 Bedside Glucose 131 182 Medications Current Medications Piperacillin Sod/ Tazobactam Sod (Zosyn 2.25gm/ 50ml (Pmx)) 50 ml @ 100 mls/hr Q8 IVPB Last administered on 08/08/16 05:36; Admin Dose 100 MLS/HR; Start 08/03 at 06:00 Aspirin (Aspirin) 81 mg DAILY NGT Last administered on 08/08/16 09:30; Admin Dose 81 MG; Start 08/03/16 at 09:00 Famotidine 20 mg 20 mg DAILY IV Last administered on 08/08/16 09:30; Admin Dose 20 MG; Start 08/03/16 at 09:00 Fentanyl (Sublimaze) 100 ml @ 5 mls/hr TITRATE IV Last administered on 20:09; Admin Dose 5 MLS/HR; Start 08/03/16 at 10:00 IV Flush (NS 10 ml) 10 ml PRN PRN IV IV PROTOCOL; Start 08/03/16 at 16:30 Atorvastatin Calcium (Lipitor) 80 mg HS NGT Last administered on 08/07/16 20: 49; Admin Dose 80 MG; Start 08/03/16 at 21:00 Acetaminophen 650 mg 650 mg Q6H PRN NGT PAIN AND OR ELEVATED TEMP Last administered on 08/06/16 16:22; Admin Dose 650 MG; Start 08/03/16 at 22:00 Midazolam HCl (Versed) 50 ml @ 1 mls/hr TITRATE IV Last administered on 19:12; Admin Dose 3 MLS/HR; Start 08/03/16 at 22:15 Insulin Aspart (Novolog Insulin Pen) NOVOLOG *MODERATE* ALGORI... Q4 SC Last administered on 08/08/16 09:36; Admin Dose 2 UNIT; Start 08/04/16 at 13:00 Miscellaneous Information 1 ea NOTE XX ; Start 08/04/16 at 09:30 Glucose (Glutose) 15 gm Q15M PRN PO DECREASED GLUCOSE; Start 08/04/16 at 09:30 Glucose (Glutose) 22.5 gm Q15M PRN PO DECREASED GLUCOSE; Start 08/04/16 at 09:30 Dextrose (D50w Syringe) 25 ml Q15M PRN IV DECREASED GLUCOSE; Start 08/04/16 at 09:30 Dextrose (D50w Syringe) 50 ml Q15M PRN IV DECREASED GLUCOSE; Start 08/04/16 at 09:30 Glucagon (Glucagen) 1 mg Q15M PRN IM DECREASED GLUCOSE; Start 08/04/16 at 09:30 Glucose 15 gm 15 gm Q15M PRN BUCCAL DECREASED GLUCOSE; Start 08/04/16 at 09:30 Lidocaine HCl/ Dextrose 500 ml @ 15 mls/hr Q24H IV Last administered on 20:10; Admin Dose 15 MLS/HR; Start 08/04/16 at 13:00 Norepinephrine/ Dextrose (Levophed/D5W) 500 ml @ 1.87 mls/hr TITRATE IV Last administered on 08/08/16 09:37; Admin Dose 37.5 MLS/HR; Start 08/04/16 at 16:30 Mupirocin (Bactroban) 1 applic BID TOP Last administered on 08/08/16 09:30; Admin Dose 1 APPLIC; Start 08/05/16 at 11:00; Stop 08/10/16 at 10:59 Digoxin 0.125 mg 0.125 mg DAILY@13 NGT Last administered on 08/07/16 13:56; Admin Dose 0.125 MG; Start 08/07/16 at 13:00 Sodium Chloride (NS) 250 ml @ 0 mls/hr Q0M ONCE IV* ; Start 08/08/16 at 08:00; Stop 08/08/16 at 08:01 Furosemide (Lasix) 20 mg ONCE IV ; Start 08/08/16 at 08:00; Stop 08/09/16 at 07: 59 Digoxin 125 mcg 125 mcg ONCE ONCE IV Last administered on 08/08/16 09:29; Admin Dose 125 MCG; Start 08/08/16 at 09:30; Stop 08/08/16 at 09:31 Amiodarone HCl 900 mg/Dextrose 500 ml @ 16.7 mls/hr Q24H IV Last administered on 08/08/16 10:22; Admin Dose 16.7 MLS/HR; Start 08/08/16 at 10:00 Potassium Chloride 50 ml @ 50 mls/hr ONCE ONCE IVPB Last administered on 10:29; Admin Dose 50 MLS/HR; Start 08/08/16 at 10:00; Stop 08/08/16 at 10: 59 Potassium Chloride/Dextrose 1,000 ml @ 40 mls/hr Q24H IV ; Start 08/08/16 at 11 :00 Phenylephrine HCl/ Dextrose (Mike-Synephrine/ D5W) 250 ml @ 18.75 mls/ hr TITRATE IV ; Start 08/08/16 at 12:00 Assessment/Plan Chief Complaint/Hosp Course PHYSICAL EXAMINATION: GENERAL: The patient is not in acute distress and intubated orally. HEENT: Normocephalic, atraumatic head. NECK: Supple. LUNGS: Scattered rhonchi. CARDIAC: Normal cardiac rhythm and sounds, tachycardia. ABDOMEN: Soft. EXTREMITIES: 1+ edema. NEUROLOGIC: She is lethargic, eyes closed. No response to voice, pain, or commands. No response to visual threat. Pupils: about 4 mm fixed. No extraocular movements spontaneously or on oculocephalic maneuver. Corneal reflexes absent bilaterally. No gag on suctioning. No movements of flaccid extremities in upper extremities and trace of withdrawal to pain in the feet. IMPRESSION: Severe encephalopathy, worsening. EEG tomorrow Problems: ERIK MOORE MD Aug 08, 2016 12:19
--- NOTE | 2016-08-08 12:26 | CONS ---
Date/Time of Note Date/Time of Note DATE: 08/08/16 TIME: 12:18 Consult Date/Type/Reason Admit Date/Time Aug 03, 2016 at 04:29 Initial Consult Date 08/04/16 Type of Consultation: Pulm Ordering Provider: JEREMIAH ACEVEDO MD Subjective Patient is unresponsive on MV. Pupils fixed and dilated; No GAG reflex present. However, she is overbreathing the vent. Her hemodynamic status is labile and is now maxed on levophed gtt. Objective Vital Signs Date Time Temp Pulse Resp B/P Pulse Ox O2 Delivery O2 Flow Rate FiO2 08/08/16 12:00 97.7 134 15 61/45 100 Mechanical Ventilator 08/08/16 08:00 40 Intake and Output 08/07/16 08/07/16 08/08/16 15:00 23:00 07:00 Intake Total 574.37 ml 439.40 ml 721.26 ml Output Total 530 ml 365 ml 185 ml Balance 44.37 ml 74.40 ml 536.26 ml HEENT: Neck supple; no JVD; no LAD CVS: RRR, S1 and S2 CHEST: Clear ABD: Soft, NT, + BS EXT: No c/c/e NEURO: Unresponsive; flaccid; No GAG; No corneal; Neg oculocephalic reflex Results/Medications Result Diagram: 08/08/16 0420 08/08/16 0400 Results 24 hrs Laboratory Tests Test 08/07/16 12:38 08/07/16 12:50 08/07/16 16:11 08/07/16 20:47 Lab Scanned Report REFERENCE LAB Bedside Glucose 297 H 160 173 Test 08/08/16 01:36 08/08/16 04:00 08/08/16 04:20 08/08/16 05:00 Bedside Glucose 170 Anion Gap 24 #H Blood Urea Nitrogen 41 H Calcium Level 7.6 L Carbon Dioxide Level 17 L Chloride Level 116 H Creatinine 1.90 H Glucose Level 265 H Lactic Acid Level 1.3 Potassium Level 3.7 Sodium Level 153 H Basophils # 0.0 Basophils % 0.2 Blood Morphology Comment Eosinophils # 0.4 Eosinophils % 3.9 Hematocrit 24.3 L Hemoglobin 7.1 L Lymphocytes # 1.0 Lymphocytes % 9.6 L Magnesium Level 2.2 Mean Corpuscular Hemoglobin 30.1 Mean Corpuscular Hemoglobin Concent 29.1 L Mean Corpuscular Volume 103.4 H Mean Platelet Volume 10.9 H Monocytes # 0.3 Monocytes % 3.3 Neutrophils # 8.4 H Neutrophils % 83.0 H Nucleated Red Blood Cells # 0.0 Nucleated Red Blood Cells % 0.0 Platelet Count 118 #L Red Blood Count 2.35 L Red Cell Distribution Width 18.3 #H White Blood Count 10.1 # Arterial Blood HCO3 19.2 L Arterial Blood Base Excess -5.8 L Arterial Blood Oxygen Saturation 93.3 L Morteza Test ACCEPTAB Arterial Blood Gas Puncture Site Right Radial Arterial Blood Carboxyhemoglobin 0.1 Arterial Blood Date Drawn 08/08/2016 4:55:49 AM Arterial Blood Methemoglobin 0.4 Arterial Blood pCO2 (Temp correct) 35.5 Arterial Blood pH (Temp corrected) 7.350 Arterial Blood pO2 (Temp corrected) 69.7 L Blood Gas A-a O2 Differential 102.5 H Blood Gas Actual Respiration Rate 18 Blood Gas Inspiratory Pressure 29.0 Blood Gas Low PEEP Setting 5.0 Blood Gas Modality VENT - AC Blood Gas Notified Time 08/08/2016 5:18:41 AM Blood Gas Notified Whom MG Blood Gas Respiration Rate 14.0 Blood Gas Specimen Source Blood arterial Blood Gas Temperature 37.0 Blood Gas Tidal Volume 500.0 FiO2 30.0 Oxyhemoglobin Percent 92.8 L Total Hemoglobin 10.3 L Test 08/08/16 05:37 08/08/16 09:26 Bedside Glucose 131 182 Medications Current Medications Piperacillin Sod/ Tazobactam Sod (Zosyn 2.25gm/ 50ml (Pmx)) 50 ml @ 100 mls/hr Q8 IVPB Last administered on 08/08/16 05:36; Admin Dose 100 MLS/HR; Start 08/03 at 06:00 Aspirin (Aspirin) 81 mg DAILY NGT Last administered on 08/08/16 09:30; Admin Dose 81 MG; Start 08/03/16 at 09:00 Famotidine 20 mg 20 mg DAILY IV Last administered on 08/08/16 09:30; Admin Dose 20 MG; Start 08/03/16 at 09:00 Fentanyl (Sublimaze) 100 ml @ 5 mls/hr TITRATE IV Last administered on 20:09; Admin Dose 5 MLS/HR; Start 08/03/16 at 10:00 IV Flush (NS 10 ml) 10 ml PRN PRN IV IV PROTOCOL; Start 08/03/16 at 16:30 Atorvastatin Calcium (Lipitor) 80 mg HS NGT Last administered on 08/07/16 20: 49; Admin Dose 80 MG; Start 08/03/16 at 21:00 Acetaminophen 650 mg 650 mg Q6H PRN NGT PAIN AND OR ELEVATED TEMP Last administered on 08/06/16 16:22; Admin Dose 650 MG; Start 08/03/16 at 22:00 Midazolam HCl (Versed) 50 ml @ 1 mls/hr TITRATE IV Last administered on 19:12; Admin Dose 3 MLS/HR; Start 08/03/16 at 22:15 Insulin Aspart (Novolog Insulin Pen) NOVOLOG *MODERATE* ALGORI... Q4 SC Last administered on 08/08/16 09:36; Admin Dose 2 UNIT; Start 08/04/16 at 13:00 Miscellaneous Information 1 ea NOTE XX ; Start 08/04/16 at 09:30 Glucose (Glutose) 15 gm Q15M PRN PO DECREASED GLUCOSE; Start 08/04/16 at 09:30 Glucose (Glutose) 22.5 gm Q15M PRN PO DECREASED GLUCOSE; Start 08/04/16 at 09:30 Dextrose (D50w Syringe) 25 ml Q15M PRN IV DECREASED GLUCOSE; Start 08/04/16 at 09:30 Dextrose (D50w Syringe) 50 ml Q15M PRN IV DECREASED GLUCOSE; Start 08/04/16 at 09:30 Glucagon (Glucagen) 1 mg Q15M PRN IM DECREASED GLUCOSE; Start 08/04/16 at 09:30 Glucose 15 gm 15 gm Q15M PRN BUCCAL DECREASED GLUCOSE; Start 08/04/16 at 09:30 Lidocaine HCl/ Dextrose 500 ml @ 15 mls/hr Q24H IV Last administered on 20:10; Admin Dose 15 MLS/HR; Start 08/04/16 at 13:00 Norepinephrine/ Dextrose (Levophed/D5W) 500 ml @ 1.87 mls/hr TITRATE IV Last administered on 08/08/16 09:37; Admin Dose 37.5 MLS/HR; Start 08/04/16 at 16:30 Mupirocin (Bactroban) 1 applic BID TOP Last administered on 08/08/16 09:30; Admin Dose 1 APPLIC; Start 08/05/16 at 11:00; Stop 08/10/16 at 10:59 Digoxin 0.125 mg 0.125 mg DAILY@13 NGT Last administered on 08/07/16 13:56; Admin Dose 0.125 MG; Start 08/07/16 at 13:00 Sodium Chloride (NS) 250 ml @ 0 mls/hr Q0M ONCE IV* ; Start 08/08/16 at 08:00; Stop 08/08/16 at 08:01 Furosemide (Lasix) 20 mg ONCE IV ; Start 08/08/16 at 08:00; Stop 08/09/16 at 07: 59 Digoxin 125 mcg 125 mcg ONCE ONCE IV Last administered on 08/08/16 09:29; Admin Dose 125 MCG; Start 08/08/16 at 09:30; Stop 08/08/16 at 09:31 Amiodarone HCl 900 mg/Dextrose 500 ml @ 16.7 mls/hr Q24H IV Last administered on 08/08/16 10:22; Admin Dose 16.7 MLS/HR; Start 08/08/16 at 10:00 Potassium Chloride 50 ml @ 50 mls/hr ONCE ONCE IVPB Last administered on 10:29; Admin Dose 50 MLS/HR; Start 08/08/16 at 10:00; Stop 08/08/16 at 10: 59 Potassium Chloride/Dextrose 1,000 ml @ 40 mls/hr Q24H IV ; Start 08/08/16 at 11 :00 Phenylephrine HCl/ Dextrose (Mike-Synephrine/ D5W) 250 ml @ 18.75 mls/ hr TITRATE IV ; Start 08/08/16 at 12:00 Assessment/Plan Additional Assessment/Plan 1. 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 s/p AMI 3. Torsades on lidocaine 4. Renal failure 5. Respiratory Failure 6. Anemia RECS: 1. I had a long discussion with family regarding the futility of further heroic measures given the findings on examination today. I urged them to consider at the very least making her DNR for no chest compressions as a first step. 2. continue to hold sedatives 3. Transfuse PRBC's 5. Amiodarone gtt 6. Vent support 7. Prognosis grim Case d/w family, RN, Neurology, and PMD 40 min cc time 35 min CC time NAFISA RHODES MD Aug 08, 2016 12:26
--- NOTE | 2016-08-08 12:50 | CONS ---
Date/Time of Note Date/Time of Note DATE: 08/08/16 TIME: 12:49 Assessment/Plan Assessment/Plan Additional Assessment/Plan Assessment: * High residuals on OG feeding * Rule out gastric outlet obstruction or small bowel obstruction. Unlikely * Versus gastroparesis * Anoxic encephalopathy * Post cardiac arrest * Non-STEMI/CHF * Acute renal failure * Diabetes mellitus type 2 * Hypertension Plan: * Review abdominal series * Add Reglan 10 mg IV every 6 hours * Await resolution of CODE STATUS and plan of care Consultation Date/Type/Reason Admit Date/Time Aug 03, 2016 at 04:29 Date of Consultation: Aug 08, 2016 Hx of Present Illness 75-year-old female suffered cardiac arrest and apparently has significant anoxic encephalopathy at the present time. She has no gag reflex or any other spontaneous activity. She is currently ventilator dependent. She has an orogastric tube and has been receiving feedings however large residuals were found and feedings have been held. Abdominal series is pending. Abdominal appearances benign. Patient's CODE STATUS and plan of care being reviewed with family as her prognosis appears to be extremely poor for meaningful recovery. * Not obtainable Psychological: other (unable to assess) Past Medical History Medical History: diabetes, hypertension, hypothyroid Past Surgical History Past Surgical Hx: no surgical history Family History Significant Family History: no pertinent family hx Social History Alcohol Use: none Smoking Status: Never smoker Drug Use: none Exam/Review of Systems Vital Signs Vitals Vital Signs Date Time Temp Pulse Resp B/P Pulse Ox O2 Delivery O2 Flow Rate FiO2 08/08/16 12:31 131 08/08/16 12:00 97.7 15 61/45 100 Mechanical Ventilator 08/08/16 08:00 40 Intake and Output 08/07/16 08/07/16 08/08/16 15:00 23:00 07:00 Intake Total 574.37 ml 439.40 ml 721.26 ml Output Total 530 ml 365 ml 185 ml Balance 44.37 ml 74.40 ml 536.26 ml Exam Constitutional: other (Unresponsive) Head: atraumatic, normocephalic Neck: non-tender, supple Respiratory: clear to auscultation, normal air movement Cardiovascular: nl pulses, regular rate and rhythm Gastrointestinal: nl liver, spleen, non-tender, soft Musculoskeletal: nl extremities to inspection Skin: nl turgor Lymph: nl lymph nodes Results Result Diagram: 2/12/17 0420 08/08/16 0400 Results 24 hrs Laboratory Tests Test 08/07/16 12:50 08/07/16 16:11 08/07/16 20:47 08/08/16 01:36 Bedside Glucose 297 H 160 173 170 Test 08/08/16 04:00 08/08/16 04:20 08/08/16 05:00 08/08/16 05:37 Anion Gap 24 #H Blood Urea Nitrogen 41 H Calcium Level 7.6 L Carbon Dioxide Level 17 L Chloride Level 116 H Creatinine 1.90 H Glucose Level 265 H Lactic Acid Level 1.3 Potassium Level 3.7 Sodium Level 153 H Basophils # 0.0 Basophils % 0.2 Blood Morphology Comment Eosinophils # 0.4 Eosinophils % 3.9 Hematocrit 24.3 L Hemoglobin 7.1 L Lymphocytes # 1.0 Lymphocytes % 9.6 L Magnesium Level 2.2 Mean Corpuscular Hemoglobin 30.1 Mean Corpuscular Hemoglobin Concent 29.1 L Mean Corpuscular Volume 103.4 H Mean Platelet Volume 10.9 H Monocytes # 0.3 Monocytes % 3.3 Neutrophils # 8.4 H Neutrophils % 83.0 H Nucleated Red Blood Cells # 0.0 Nucleated Red Blood Cells % 0.0 Platelet Count 118 #L Red Blood Count 2.35 L Red Cell Distribution Width 18.3 #H White Blood Count 10.1 # Arterial Blood HCO3 19.2 L Arterial Blood Base Excess -5.8 L Arterial Blood Oxygen Saturation 93.3 L Morteza Test ACCEPTAB Arterial Blood Gas Puncture Site Right Radial Arterial Blood Carboxyhemoglobin 0.1 Arterial Blood Date Drawn 08/08/2016 4:55:49 AM Arterial Blood Methemoglobin 0.4 Arterial Blood pCO2 (Temp correct) 35.5 Arterial Blood pH (Temp corrected) 7.350 Arterial Blood pO2 (Temp corrected) 69.7 L Blood Gas A-a O2 Differential 102.5 H Blood Gas Actual Respiration Rate 18 Blood Gas Inspiratory Pressure 29.0 Blood Gas Low PEEP Setting 5.0 Blood Gas Modality VENT - AC Blood Gas Notified Time 08/08/2016 5:18:41 AM Blood Gas Notified Whom MG Blood Gas Respiration Rate 14.0 Blood Gas Specimen Source Blood arterial Blood Gas Temperature 37.0 Blood Gas Tidal Volume 500.0 FiO2 30.0 Oxyhemoglobin Percent 92.8 L Total Hemoglobin 10.3 L Bedside Glucose 131 Test 08/08/16 09:26 Bedside Glucose 182 Medications Medications Current Medications Piperacillin Sod/ Tazobactam Sod (Zosyn 2.25gm/ 50ml (Pmx)) 50 ml @ 100 mls/hr Q8 IVPB Last administered on 08/08/16 05:36; Admin Dose 100 MLS/HR; Start 08/03 at 06:00 Aspirin (Aspirin) 81 mg DAILY NGT Last administered on 08/08/16 09:30; Admin Dose 81 MG; Start 08/03/16 at 09:00 Famotidine 20 mg 20 mg DAILY IV Last administered on 08/08/16 09:30; Admin Dose 20 MG; Start 08/03/16 at 09:00 Fentanyl (Sublimaze) 100 ml @ 5 mls/hr TITRATE IV Last administered on 20:09; Admin Dose 5 MLS/HR; Start 08/03/16 at 10:00 IV Flush (NS 10 ml) 10 ml PRN PRN IV IV PROTOCOL; Start 08/03/16 at 16:30 Atorvastatin Calcium (Lipitor) 80 mg HS NGT Last administered on 08/07/16 20: 49; Admin Dose 80 MG; Start 08/03/16 at 21:00 Acetaminophen 650 mg 650 mg Q6H PRN NGT PAIN AND OR ELEVATED TEMP Last administered on 08/06/16 16:22; Admin Dose 650 MG; Start 08/03/16 at 22:00 Midazolam HCl (Versed) 50 ml @ 1 mls/hr TITRATE IV Last administered on 19:12; Admin Dose 3 MLS/HR; Start 08/03/16 at 22:15 Insulin Aspart (Novolog Insulin Pen) NOVOLOG *MODERATE* ALGORI... Q4 SC Last administered on 08/08/16 09:36; Admin Dose 2 UNIT; Start 08/04/16 at 13:00 Miscellaneous Information 1 ea NOTE XX ; Start 08/04/16 at 09:30 Glucose (Glutose) 15 gm Q15M PRN PO DECREASED GLUCOSE; Start 08/04/16 at 09:30 Glucose (Glutose) 22.5 gm Q15M PRN PO DECREASED GLUCOSE; Start 08/04/16 at 09:30 Dextrose (D50w Syringe) 25 ml Q15M PRN IV DECREASED GLUCOSE; Start 08/04/16 at 09:30 Dextrose (D50w Syringe) 50 ml Q15M PRN IV DECREASED GLUCOSE; Start 08/04/16 at 09:30 Glucagon (Glucagen) 1 mg Q15M PRN IM DECREASED GLUCOSE; Start 08/04/16 at 09:30 Glucose 15 gm 15 gm Q15M PRN BUCCAL DECREASED GLUCOSE; Start 08/04/16 at 09:30 Lidocaine HCl/ Dextrose 500 ml @ 15 mls/hr Q24H IV Last administered on 20:10; Admin Dose 15 MLS/HR; Start 08/04/16 at 13:00 Norepinephrine/ Dextrose (Levophed/D5W) 500 ml @ 1.87 mls/hr TITRATE IV Last administered on 08/08/16 09:37; Admin Dose 37.5 MLS/HR; Start 08/04/16 at 16:30 Mupirocin (Bactroban) 1 applic BID TOP Last administered on 08/08/16 09:30; Admin Dose 1 APPLIC; Start 08/05/16 at 11:00; Stop 08/10/16 at 10:59 Digoxin 0.125 mg 0.125 mg DAILY@13 NGT Last administered on 08/07/16 13:56; Admin Dose 0.125 MG; Start 08/07/16 at 13:00 Sodium Chloride (NS) 250 ml @ 0 mls/hr Q0M ONCE IV* Last administered on 08:00; Admin Dose 1 MLS/HR; Start 08/08/16 at 08:00; Stop 08/08/16 at 08:01 Furosemide (Lasix) 20 mg ONCE IV ; Start 08/08/16 at 08:00; Stop 08/09/16 at 07: 59 Digoxin 125 mcg 125 mcg ONCE ONCE IV Last administered on 08/08/16 09:29; Admin Dose 125 MCG; Start 08/08/16 at 09:30; Stop 08/08/16 at 09:31 Amiodarone HCl 900 mg/Dextrose 500 ml @ 16.7 mls/hr Q24H IV Last administered on 08/08/16 10:22; Admin Dose 16.7 MLS/HR; Start 08/08/16 at 10:00 Potassium Chloride 50 ml @ 50 mls/hr ONCE ONCE IVPB Last administered on 10:29; Admin Dose 50 MLS/HR; Start 08/08/16 at 10:00; Stop 08/08/16 at 10: 59 Potassium Chloride/Dextrose 1,000 ml @ 40 mls/hr Q24H IV Last administered on 08/08/16 11:30; Admin Dose 40 MLS/HR; Start 08/08/16 at 11:00 Phenylephrine HCl/ Dextrose (Mike-Synephrine/ D5W) 250 ml @ 18.75 mls/ hr TITRATE IV ; Start 08/08/16 at 12:00 IVAN ROCA MD Aug 08, 2016 12:50
[2016-08-08] MEDS: DIGOXIN 0.125 MG TAB NGT SCH (13:36)
[2016-08-08] MEDS: METOCLOPRAMIDE 10 MG INJ IV SCH ×3 (13:56→23:15)
[2016-08-08] MEDS: VASOPRESSIN 60 UNIT in DEXTROSE 5% 57 ML IV SCH (16:22)
--- NOTE | 2016-08-08 17:12 | CONS ---
DATE OF ADMISSION: 08/03/2016 DATE OF CONSULTATION: 08/08/2016 REASON FOR CONSULTATION: Atrial fibrillation with rapid ventricular rate, as well as torsades de po inte on admission. HISTORY OF PRESENT ILLNESS: Reina Mac is a 75-year-old woman. She was admitted on 08/03/2016 after being found to be somewhat ogpi-pruritic at home and developed acute respiratory failure. On monitoring, she developed several episodes of torsades de pointe and was started on lidocaine dri p after a recurrence while on amiodarone. In addition, she has had atrial fibrillation with rapid ventricular rate . She has developed p rogressive hypotension on a max dose of Levaquin at this time. She remains intubated. PHYSICAL EXAMINATION GENERAL: She is off all sedatives and remains unresponsive. VITAL SIGNS: Temperature 97.7, intubated, pulse 131, nonresponsive to painful stimuli, blood pressu re 61/45 on last reading. CARDIAC: Hear rate is elevated at 130. LABORATORY RESULTS: Hemoglobin 10.1, hematocrit 24.3, platelet count 118. Sodium 153, potassium 3. 7, BUN 41, creatinine 1.9, minimal urine output. MEDICATIONS: 1. Levophed. 2. Amiodarone. 3. Digoxin. 4. Lasix. 5. Lidocaine. ASSESSMENT: By history there is a strong possibility that the patient had a large CVA. It would ex plain her decompensation and the fact that she remains unresponsive despite being off all sedatives. She is profoundly hypotensive requiring multiple increasing doses of pressors. She is experiencin g multiorgan failure with worsening renal function. She has not had any more torsades. I will disc ontinue lidocaine to remove any confounding factors in her mental status. I will start amiodarone for rate control if tolerated by blood pressure. Would continue digoxin for now. Limited options with her rate control despite the fact that she remains quite tachycardic. O verall, her condition is quite guarded and she is too unstable to move to assess whether or not she has had a cerebrovascular accident. Dictated By: JUAN LAWTON/NTS Conf#: [id number] DID#: [id number]
[2016-08-08] MEDS ORDERED: NORepinephrine 32 MG in DEXTROSE 5% 218 ML IV SCH (18:00)
--- NOTE | 2016-08-08 18:21 | RADRPT ---
PROCEDURE: XR Abdomen. CLINICAL INDICATION: Abdominal pain TECHNIQUE: Single AP view of the abdomen is available for review. COMPARISON: None. FINDINGS: Bibasilar consolidation is unchanged from previous exam. Mild gaseous distension of stomach is improved compared to previous exam. Nasogastric tube terminates the body of stomach. The bowel gas pattern is normal. There is no evidence of obstruction. There are no abnormal calcifications overlying the urinary tracts. No free air identified. The osseous structures do not demonstrate acute abnormality. IMPRESSION: 1. No evidence of bowel obstruction, perforation or radiopaque calculi overlying the urinary tracts . 2. Satisfactory position of nasogastric tube. 3. Bibasilar lung infiltrates, unchanged. RPTAT: QQ .Kwadwo Delcid MD, MD Date Time Electronically viewed and signed by .Kwadwo Delcid MD, MD on 08/08/2016 18:21 .M/
[2016-08-08] MEDS: ATORVASTATIN 80 MG TAB NGT SCH (21:03)
[2016-08-08 22:00] LABS: ALBUMIN 2.5 g/dl (3.3-4.9)
[2016-08-08 22:01] LABS: POTASSIUM 5.9 mmol/L (3.5-5.1)
[2016-08-08 22:03] LABS: ALBUMIN/GLOBULIN RATIO 0.73; BILIRUBIN,INDIRECT 0.2 mg/dl (0-1.1); BILIRUBIN,TOTAL 0.2 mg/dl (0.2-1.3); CREATININE 2.75 mg/dl (0.44-1.00); TOTAL PROTEIN 5.9 g/dl (6.1-8.1)
[2016-08-08 22:04] LABS: CALCIUM 8.2 mg/dl (8.4-10.2); MAGNESIUM 2.1 mg/dl (1.7-2.5); PHOSPHORUS 3.5 mg/dl (2.5-4.9)
[2016-08-09] VITALS (91 sets, daily range): BP systolic 41–129; BP diastolic 23–68; PULSE 0–149; RESP 0–32
[2016-08-09] MEDS: INSULIN ASPART [NOVOLOG] 3 ML PEN SC SCH ×3 (01:00→08:33)
[2016-08-09] MEDS: VASOPRESSIN 60 UNIT in DEXTROSE 5% 57 ML IV SCH ×2 (05:35→15:30)
[2016-08-09] MEDS: PIPER-TAZO 2.25 GM (PMX) 50 ML IVPB SCH (06:29)
[2016-08-09] MEDS: METOCLOPRAMIDE 10 MG INJ IV SCH (06:29)
[2016-08-09 07:00] LABS: HEMATOCRIT 37.3 % (37.0-47.0); HEMOGLOBIN 12.2 g/dl (12.0-16.0); MEAN CORPUSCULAR HEMOGLOBIN 29.3 pg (29.0-33.0); MEAN CORPUSCULAR HGB CONC 32.9 g/dl (32.0-37.0); MEAN CORPUSCULAR VOLUME 89.2 fl (82.0-101.0); MEAN PLATELET VOLUME 10.7 fl (7.4-10.4); PLATELET COUNT 205 10^3/UL (140-440); RED BLOOD COUNT 4.18 10^6/ul (4.20-5.40); RED CELL DISTRIBUTION WIDTH 18.1 % (11.5-14.5); UNCORRECTED WBC 20.5 10^3/ul (4.8-10.8); WHITE BLOOD COUNT 20.5 10^3/ul (4.8-10.8)
[2016-08-09 07:05] LABS: SUSPECT 1
[2016-08-09 07:06] LABS: CONDITION 1; LH ANALYZER COMMENTS 1
[2016-08-09 07:08] LABS: CREATININE 3.04 mg/dl (0.44-1.00)
[2016-08-09 07:09] LABS: CALCIUM 8.7 mg/dl (8.4-10.2)
[2016-08-09 07:17] LABS: HEMATOCRIT 40.3 % (37.0-47.0); HEMOGLOBIN 13.1 g/dl (12.0-16.0); MEAN CORPUSCULAR HEMOGLOBIN 29.3 pg (29.0-33.0); MEAN CORPUSCULAR HGB CONC 32.4 g/dl (32.0-37.0); MEAN CORPUSCULAR VOLUME 90.3 fl (82.0-101.0); PLATELET COUNT 210 10^3/UL (140-440); RED BLOOD COUNT 4.47 10^6/ul (4.20-5.40); RED CELL DISTRIBUTION WIDTH 18.4 % (11.5-14.5); UNCORRECTED WBC 25.3 10^3/ul (4.8-10.8); WHITE BLOOD COUNT 25.3 10^3/ul (4.8-10.8)
--- NOTE | 2016-08-09 07:17 | QN ---
Documentation Comment I was called out of the emergency department to room 107 for a CODE BLUE event. The patient was receiving high-quality CPR and being bagged by respiratory therapy. I immediately took over as the CODE BLUE leader and ran the code. Please see the code sheet for full details. The patient received multiple doses of epinephrine, 2 Amps of bicarbonate, 1 amp of calcium chloride, and defibrillation 2 for ventricular tachycardia. The final results of the CODE BLUE was return of spontaneous circulation. HPI: Please note the history and physical exam is limited as the patient is receiving CPR at this time. The patient is in full cardiac arrest. Physical exam: The patient is being bagged by respiratory therapy. There is no movement. GCS is 3. Defibrillation #1: Patient required defibrillation during the CODE BLUE Technique: Biphasic defibrillation at 200 J for ventricular tachycardia Defibrillation #2: Patient required defibrillation during the CODE BLUE Technique: Biphasic defibrillation at 200 J for ventricular tachycardia SAMMIE VEGA MD Aug 09, 2016 07:17
[2016-08-09 07:19] LABS: CONDITION 1; LH ANALYZER COMMENTS 1; SUSPECT 1
[2016-08-09 07:20] LABS: INR 1.43; PROTIME 17.5 Sec (12.2-14.2); PT RATIO 1.4
[2016-08-09 07:22] LABS: POTASSIUM 6.5 mmol/L (3.5-5.1)
[2016-08-09 07:30] LABS: ALBUMIN 2.5 g/dl (3.3-4.9)
[2016-08-09 07:32] LABS: CREATININE 3.35 mg/dl (0.44-1.00)
[2016-08-09 07:33] LABS: BILIRUBIN,INDIRECT 0.1 mg/dl (0-1.1); BILIRUBIN,TOTAL 0.1 mg/dl (0.2-1.3); PHOSPHORUS 6.3 mg/dl (2.5-4.9); TOTAL PROTEIN 5.7 g/dl (6.1-8.1)
[2016-08-09 07:34] LABS: ALBUMIN/GLOBULIN RATIO 0.78; CALCIUM 10.3 mg/dl (8.4-10.2); MAGNESIUM 2.4 mg/dl (1.7-2.5); POTASSIUM 6.2 mmol/L (3.5-5.1)
[2016-08-09] MEDS: ASPIRIN 81 MG TAB NGT SCH (08:27)
[2016-08-09] MEDS: FAMOTIDINE 20 MG INJ IV SCH (08:27)
[2016-08-09] MEDS: MUPIROCIN 2% 22 GM OINT TOP SCH (08:28)
--- NOTE | 2016-08-09 09:14 | CONS ---
Date/Time of Note Date/Time of Note DATE: 08/09/16 TIME: 09:11 Assessment/Plan Assessment/Plan Additional Assessment/Plan Assessment and recommendations; next 1. Patient admitted with cardiac arrest underwent prolonged CPR. Next 2. Severe congestive heart failure. 3. Torsades, currently in junctional rhythm. 4. Sepsis, possibly aspiration pneumonia. 5. Worsening renal function. 6. Severe hypotension. 8. Fixed and dilated pupils. 9. Hyperkalemia. Continue current treatment. I did have a detailed discussion the patient's 2 sons at bedside apprised him of the very grim prognosis the family is no agreed for DNR status. Prognosis is dismal. We will give Kayexalate 30 g 1 for correction of hyperkalemia. Consultation Date/Type/Reason Admit Date/Time Aug 03, 2016 at 04:29 Initial Consult Date 08/04/16 Type of Consultation: Pulm Referring Provider: JEREMIAH ACEVEDO MD 24 HR Interval Summary Free Text/Dictation Patient condition remains actually critical. Still on maxed out doses of Levophed and vasopressin drips. Urine output has been extremely poor. She has remained in junctional rhythm. Getting progressively more hypotensive. General examination; elderly lady, or intubated unresponsive. Exam/Review of Systems Vital Signs Vitals Vital Signs Date Time Temp Pulse Resp B/P Pulse Ox O2 Delivery O2 Flow Rate FiO2 08/09/16 08:47 60 08/09/16 06:40 14 50/36 08/09/16 06:25 100 08/09/16 05:45 100 08/09/16 00:00 98.7 Mechanical Ventilator Intake and Output 08/08/16 08/08/16 08/09/16 15:00 23:00 07:00 Intake Total 926.07 ml 1474.53 ml 608.38 ml Output Total 5 ml 80 ml 100 ml Balance 921.07 ml 1394.53 ml 508.38 ml Exam Current ventilator settings; assist control of 14, tidal volume 500, PEEP of 5, 100% FiO2. HEENT examination; supple neck, positive JVD. Pupils are dilated and fixed beat. Orally intubated. No neck masses. Chest examination; diminished breath sounds throughout with scattered crackles bilaterally. S1-S2 audible. No murmurs. Regular rhythm. Abdomen examination; soft, nondistended. Bowel sounds are absent. Extremity examination; no peripheral edema. Radial and femoral pulses are palpable bilaterally. [employer] examination; patient is unresponsive. Results Result Diagram: 08/09/16 0630 08/09/16 0630 Results 24 hrs Laboratory Tests Test 08/08/16 09:26 08/08/16 13:56 08/08/16 17:36 08/08/16 21:05 Bedside Glucose 182 161 172 195 Test 08/08/16 21:35 08/09/16 01:39 08/09/16 05:50 08/09/16 05:57 Alanine Aminotransferase (ALT/SGPT) 22 Albumin 2.5 L Albumin/Globulin Ratio 0.73 Alkaline Phosphatase 153 H Anion Gap 19 H 21 H Aspartate Amino Transf (AST/SGOT) 27 Blood Urea Nitrogen 49 H 51 H Calcium Level 8.2 L 8.7 Carbon Dioxide Level 16 L 16 L Chloride Level 116 H 115 H Creatinine 2.75 H 3.04 H Direct Bilirubin 0.00 Globulin 3.40 H Glucose Level 215 196 Indirect Bilirubin 0.2 Magnesium Level 2.1 Phosphorus Level 3.5 Potassium Level 5.9 #H 6.5 *H Sodium Level 145 H 145 H Total Bilirubin 0.2 Total Protein 5.9 L Bedside Glucose 139 175 Basophils # 0.0 Basophils % 0.0 Blood Morphology Comment Eosinophils # 0.0 Eosinophils % 0.2 Hematocrit 37.3 # Hemoglobin 12.2 # Lymphocytes # 0.9 Lymphocytes % 4.5 L Mean Corpuscular Hemoglobin 29.3 Mean Corpuscular Hemoglobin Concent 32.9 Mean Corpuscular Volume 89.2 Mean Platelet Volume 10.7 H Monocytes # 1.1 H Monocytes % 5.5 Neutrophils # 18.4 H Neutrophils % 89.8 H Nucleated Red Blood Cells # 0.0 Nucleated Red Blood Cells % 0.0 Platelet Count 205 # Red Blood Count 4.18 #L Red Cell Distribution Width 18.1 H White Blood Count 20.5 #H Test 08/09/16 06:30 08/09/16 08:33 Activated Partial Thromboplast Time 46.0 H Alanine Aminotransferase (ALT/SGPT) 25 Albumin 2.5 L Albumin/Globulin Ratio 0.78 Alkaline Phosphatase 213 H Anion Gap 26 H Aspartate Amino Transf (AST/SGOT) 43 Basophils # Pending Basophils % Pending Blood Morphology Comment Blood Urea Nitrogen 51 H Calcium Level 10.3 H Carbon Dioxide Level 17 L Chloride Level 113 H Creatinine 3.35 H Direct Bilirubin 0.00 Eosinophils # Pending Eosinophils % Pending Globulin 3.20 Glucose Level 244 H Hematocrit 40.3 Hemoglobin 13.1 INR International Normalized Ratio 1.43 Indirect Bilirubin 0.1 Lymphocytes # Pending Lymphocytes % Pending Magnesium Level 2.4 Mean Corpuscular Hemoglobin 29.3 Mean Corpuscular Hemoglobin Concent 32.4 Mean Corpuscular Volume 90.3 Mean Platelet Volume 11.0 H Monocytes # Pending Monocytes % Pending Neutrophils # Pending Neutrophils % Pending Nucleated Red Blood Cells # Pending Nucleated Red Blood Cells % Pending Phosphorus Level 6.3 #H Platelet Count 210 Potassium Level 6.2 *H Prothrombin Time 17.5 H Prothrombin Time Ratio 1.4 Red Blood Count 4.47 Red Cell Distribution Width 18.4 H Sodium Level 150 H Total Bilirubin 0.1 L Total Protein 5.7 L White Blood Count 25.3 #H Bedside Glucose 121 Medications Medications Current Medications Piperacillin Sod/ Tazobactam Sod (Zosyn 2.25gm/ 50ml (Pmx)) 50 ml @ 100 mls/hr Q8 IVPB Last administered on 08/09/16 06:29; Admin Dose 100 MLS/HR; Start 08/03 at 06:00 Aspirin (Aspirin) 81 mg DAILY NGT Last administered on 08/09/16 08:27; Admin Dose 81 MG; Start 08/03/16 at 09:00 Famotidine 20 mg 20 mg DAILY IV Last administered on 08/09/16 08:27; Admin Dose 20 MG; Start 08/03/16 at 09:00 Fentanyl (Sublimaze) 100 ml @ 5 mls/hr TITRATE IV Last administered on 20:09; Admin Dose 5 MLS/HR; Start 08/03/16 at 10:00 IV Flush (NS 10 ml) 10 ml PRN PRN IV IV PROTOCOL; Start 08/03/16 at 16:30 Atorvastatin Calcium (Lipitor) 80 mg HS NGT Last administered on 08/08/16 21: 03; Admin Dose 80 MG; Start 08/03/16 at 21:00 Acetaminophen 650 mg 650 mg Q6H PRN NGT PAIN AND OR ELEVATED TEMP Last administered on 08/06/16 16:22; Admin Dose 650 MG; Start 08/03/16 at 22:00 Midazolam HCl (Versed) 50 ml @ 1 mls/hr TITRATE IV Last administered on 19:12; Admin Dose 3 MLS/HR; Start 08/03/16 at 22:15 Insulin Aspart (Novolog Insulin Pen) NOVOLOG *MODERATE* ALGORI... Q4 SC Last administered on 08/09/16 06:56; Admin Dose 2 UNIT; Start 08/04/16 at 13:00 Miscellaneous Information 1 ea NOTE XX ; Start 08/04/16 at 09:30 Glucose (Glutose) 15 gm Q15M PRN PO DECREASED GLUCOSE; Start 08/04/16 at 09:30 Glucose (Glutose) 22.5 gm Q15M PRN PO DECREASED GLUCOSE; Start 08/04/16 at 09:30 Dextrose (D50w Syringe) 25 ml Q15M PRN IV DECREASED GLUCOSE; Start 08/04/16 at 09:30 Dextrose (D50w Syringe) 50 ml Q15M PRN IV DECREASED GLUCOSE; Start 08/04/16 at 09:30 Glucagon (Glucagen) 1 mg Q15M PRN IM DECREASED GLUCOSE; Start 08/04/16 at 09:30 Glucose 15 gm 15 gm Q15M PRN BUCCAL DECREASED GLUCOSE; Start 08/04/16 at 09:30 Lidocaine HCl/ Dextrose (Lidocaine 2 Gm/ D5W) 500 ml @ 15 mls/hr Q24H IV Last administered on 08/07/16 20:10; Admin Dose 15 MLS/HR; Start 08/04/16 at 13:00 Mupirocin (Bactroban) 1 applic BID TOP Last administered on 08/09/16 08:28; Admin Dose 1 APPLIC; Start 08/05/16 at 11:00; Stop 08/10/16 at 10:59 Digoxin 0.125 mg 0.125 mg DAILY@13 NGT Last administered on 08/08/16 13:36; Admin Dose 0.125 MG; Start 08/07/16 at 13:00 Amiodarone HCl 900 mg/Dextrose 500 ml @ 16.7 mls/hr Q24H IV Last administered on 08/08/16 10:22; Admin Dose 16.7 MLS/HR; Start 08/08/16 at 10:00 Potassium Chloride/Dextrose 1,000 ml @ 40 mls/hr Q24H IV Last administered on 08/08/16 11:30; Admin Dose 40 MLS/HR; Start 08/08/16 at 11:00 Phenylephrine HCl/ Dextrose (Mike-Synephrine/ D5W) 250 ml @ 18.75 mls/ hr TITRATE IV ; Start 08/08/16 at 12:00 Metoclopramide HCl 10 mg 10 mg Q6 IV Last administered on 08/09/16 06:29; Admin Dose 10 MG; Start 08/08/16 at 13:30 Vasopressin 60 unit/Dextrose 60 ml @ 1.2 mls/hr Q12H IV Last administered on 05:35; Admin Dose 2.4 MLS/HR; Start 08/08/16 at 15:30 Norepinephrine/ Dextrose (Levophed/D5W) 250 ml @ 0.46 mls/hr TITRATE IV Last administered on 08/08/16 21:52; Admin Dose 9.37 MLS/HR; Start 08/08/16 at 18:00 CORI TROY Aug 09, 2016 09:14
[2016-08-09] MEDS ORDERED: NA POLYST SULFON 15 GM/60 ML BTL PO ONE ×2 (09:30→10:00)
[2016-08-09 10:00] LABS: LYMPHOCYTES # 4.3 10^3/ul (0.8-2.9); MONOCYTE # 1.3 10^3/ul (0.3-0.9)
[2016-08-09] MEDS: AMIODARONE 900 MG in DEXTROSE 5% 482 ML IV SCH (10:00)
[2016-08-09] MEDS: D5W + KCL 20 MEQ 1,000 ML IV SCH (11:00)
[2016-08-09] MEDS: LIDOCAINE 2 GM/D5W 500 ML IV SCH (11:57)
[2016-08-09] MEDS: DIGOXIN 0.125 MG TAB NGT SCH (11:57)
--- NOTE | 2016-08-09 11:57 | PN ---
Date/Time of Note Date/Time of Note DATE: 08/09/16 TIME: 11:39 Assessment/Plan VTE Prophylaxis VTE Prophylaxis Intervention: SCD's Lines/Catheters IV Catheter Type (from Nrs): Saline Lock Urinary Cath still in place: Yes Reason Cath still needed: urinary retention Assessment/Plan Chief Complaint/Hosp Course Assessment/Plan: 75 M F: 1. Acute hypoxemic resp failure - currently vent dependent 2/2 #2. Pulm c/s appreciated. - continue with weaning as tolerated, f/u pulm rec's. 2. Severe acute CHF with pulmonary edema - signs of shock, ?cardiogenic - on pressor support x 2 now. EF 35%, stage II diastolic dysfunction - continue cardiology recs - lasix prn, * - continue with pressor support - wean as tolerated 3. NSTEMI - 2/2 to cardiac arrest - monitor trend, CV rec's 4. Acute renal insufficiency - Acute kidney injury versus acute kidney injury on chronic kidney disease secondary to cardiorenal syndrome. Worsening from ATN as Cr is rising - monitor acute changes, renally adjust medications, as per clinical course. - 5. Anion gap metabolic acidosis 2/ #4 - monitor - received bicarb earlier. - wean as tolerated, monitor BMP and renal rec's 6. DM 2: uncontrolled - insulin gtt, hgba1c 6.5 - now on ISS , monitor 7. SIRS vs Sepsis from probable underlying Pneumonia - aspiration - continue with antibiotics, continue with pressor support - worsening leukocytosis 8. Acute Encephalopathy R/o CVA - will wait for MRI - once patient is more clinically stable - appreciate neurology recs 9. HTN essential - * Patient came in uncontrolled > borderline hypotensive - on dopamine 10. Anemia - acute blood loss - s/p transfusion of 2 units prbcs, yesterday, H/ H stable today - monitor acute changes 11. GI ppx - protonix 12. DVT ppx - scds Dispo - f/u recs, monitor acute changes, continue with ABG, labs, as per clinical course - prognosis - poor - at this time in the next couple of days, determination to see which direction the care plan needs to go will be made. Family has made pt DNR now, considering comfort measures as well. Critical care time spent = 45 min today Problems: Subjective 24 Hr Interval Summary Free Text/Dictation Pt coded this AM, was able to be resuscitated, still intubated.Pt received transfusion 2 units PRBCs yesterday as well. Exam/Review of Systems Vital Signs Vitals Vital Signs Date Time Temp Pulse Resp B/P Pulse Ox O2 Delivery O2 Flow Rate FiO2 08/09/16 11:15 52 14 50/40 86 08/09/16 11:00 Mechanical Ventilator 08/09/16 08:00 97.2 08/09/16 06:25 100 Intake and Output 08/08/16 08/08/16 08/09/16 14:59 22:59 06:59 Intake Total 887.37 ml 1504.32 ml 616.98 ml Output Total 15 ml 55 ml 125 ml Balance 872.37 ml 1449.32 ml 491.98 ml Results Result Diagram: 08/09/1630 08/09/1630 Results 24 hrs Laboratory Tests Test 08/08/16 13:56 08/08/16 17:36 08/08/16 21:05 08/08/16 21:35 Bedside Glucose 161 172 195 Alanine Aminotransferase (ALT/SGPT) 22 Albumin 2.5 L Albumin/Globulin Ratio 0.73 Alkaline Phosphatase 153 H Anion Gap 19 H Aspartate Amino Transf (AST/SGOT) 27 Blood Urea Nitrogen 49 H Calcium Level 8.2 L Carbon Dioxide Level 16 L Chloride Level 116 H Creatinine 2.75 H Direct Bilirubin 0.00 Globulin 3.40 H Glucose Level 215 Indirect Bilirubin 0.2 Magnesium Level 2.1 Phosphorus Level 3.5 Potassium Level 5.9 #H Sodium Level 145 H Total Bilirubin 0.2 Total Protein 5.9 L Test 08/09/16 01:39 08/09/16 05:50 08/09/16 05:57 08/09/16 06:30 Bedside Glucose 139 175 Anion Gap 21 H 26 H Basophils # 0.0 Basophils % 0.0 Blood Morphology Comment Blood Urea Nitrogen 51 H 51 H Calcium Level 8.7 10.3 H Carbon Dioxide Level 16 L 17 L Chloride Level 115 H 113 H Creatinine 3.04 H 3.35 H Eosinophils # 0.0 Eosinophils % 0.2 Glucose Level 196 244 H Hematocrit 37.3 # 40.3 Hemoglobin 12.2 # 13.1 Lymphocytes # 0.9 4.3 H Lymphocytes % 4.5 L 17.0 Mean Corpuscular Hemoglobin 29.3 29.3 Mean Corpuscular Hemoglobin Concent 32.9 32.4 Mean Corpuscular Volume 89.2 90.3 Mean Platelet Volume 10.7 H 11.0 H Monocytes # 1.1 H 1.3 H Monocytes % 5.5 5.0 Neutrophils # 18.4 H 18.0 H Neutrophils % 89.8 H 71.0 Nucleated Red Blood Cells # 0.0 Nucleated Red Blood Cells % 0.0 0.0 Platelet Count 205 # 210 Potassium Level 6.5 *H 6.2 *H Red Blood Count 4.18 #L 4.47 Red Cell Distribution Width 18.1 H 18.4 H Sodium Level 145 H 150 H White Blood Count 20.5 #H 25.3 #H Activated Partial Thromboplast Time 46.0 H Alanine Aminotransferase (ALT/SGPT) 25 Albumin 2.5 L Albumin/Globulin Ratio 0.78 Alkaline Phosphatase 213 H Aspartate Amino Transf (AST/SGOT) 43 Direct Bilirubin 0.00 Globulin 3.20 INR International Normalized Ratio 1.43 Indirect Bilirubin 0.1 Magnesium Level 2.4 Phosphorus Level 6.3 #H Prothrombin Time 17.5 H Prothrombin Time Ratio 1.4 Total Bilirubin 0.1 L Total Protein 5.7 L Test 08/09/16 08:33 Bedside Glucose 121 Medications Medications Current Medications Piperacillin Sod/ Tazobactam Sod (Zosyn 2.25gm/ 50ml (Pmx)) 50 ml @ 100 mls/hr Q8 IVPB Last administered on 08/09/16 06:29; Admin Dose 100 MLS/HR; Start 08/03 at 06:00 Aspirin (Aspirin) 81 mg DAILY NGT Last administered on 08/09/16 08:27; Admin Dose 81 MG; Start 08/03/16 at 09:00 Famotidine 20 mg 20 mg DAILY IV Last administered on 08/09/16 08:27; Admin Dose 20 MG; Start 08/03/16 at 09:00 Fentanyl (Sublimaze) 100 ml @ 5 mls/hr TITRATE IV Last administered on 20:09; Admin Dose 5 MLS/HR; Start 08/03/16 at 10:00 IV Flush (NS 10 ml) 10 ml PRN PRN IV IV PROTOCOL; Start 08/03/16 at 16:30 Atorvastatin Calcium (Lipitor) 80 mg HS NGT Last administered on 08/08/16 21: 03; Admin Dose 80 MG; Start 08/03/16 at 21:00 Acetaminophen 650 mg 650 mg Q6H PRN NGT PAIN AND OR ELEVATED TEMP Last administered on 08/06/16 16:22; Admin Dose 650 MG; Start 08/03/16 at 22:00 Midazolam HCl (Versed) 50 ml @ 1 mls/hr TITRATE IV Last administered on 19:12; Admin Dose 3 MLS/HR; Start 08/03/16 at 22:15 Insulin Aspart (Novolog Insulin Pen) NOVOLOG *MODERATE* ALGORI... Q4 SC Last administered on 08/09/16 06:56; Admin Dose 2 UNIT; Start 08/04/16 at 13:00 Miscellaneous Information 1 ea NOTE XX ; Start 08/04/16 at 09:30 Glucose (Glutose) 15 gm Q15M PRN PO DECREASED GLUCOSE; Start 08/04/16 at 09:30 Glucose (Glutose) 22.5 gm Q15M PRN PO DECREASED GLUCOSE; Start 08/04/16 at 09:30 Dextrose (D50w Syringe) 25 ml Q15M PRN IV DECREASED GLUCOSE; Start 08/04/16 at 09:30 Dextrose (D50w Syringe) 50 ml Q15M PRN IV DECREASED GLUCOSE; Start 08/04/16 at 09:30 Glucagon (Glucagen) 1 mg Q15M PRN IM DECREASED GLUCOSE; Start 08/04/16 at 09:30 Glucose 15 gm 15 gm Q15M PRN BUCCAL DECREASED GLUCOSE; Start 08/04/16 at 09:30 Lidocaine HCl/ Dextrose (Lidocaine 2 Gm/ D5W) 500 ml @ 15 mls/hr Q24H IV Last administered on 08/07/16 20:10; Admin Dose 15 MLS/HR; Start 08/04/16 at 13:00 Mupirocin (Bactroban) 1 applic BID TOP Last administered on 08/09/16 08:28; Admin Dose 1 APPLIC; Start 08/05/16 at 11:00; Stop 08/10/16 at 10:59 Digoxin 0.125 mg 0.125 mg DAILY@13 NGT Last administered on 08/08/16 13:36; Admin Dose 0.125 MG; Start 08/07/16 at 13:00 Amiodarone HCl 900 mg/Dextrose 500 ml @ 16.7 mls/hr Q24H IV Last administered on 08/08/16 10:22; Admin Dose 16.7 MLS/HR; Start 08/08/16 at 10:00 Potassium Chloride/Dextrose 1,000 ml @ 40 mls/hr Q24H IV Last administered on 08/08/16 11:30; Admin Dose 40 MLS/HR; Start 08/08/16 at 11:00 Phenylephrine HCl/ Dextrose (Mike-Synephrine/ D5W) 250 ml @ 18.75 mls/ hr TITRATE IV ; Start 08/08/16 at 12:00 Metoclopramide HCl 10 mg 10 mg Q6 IV Last administered on 08/09/16 06:29; Admin Dose 10 MG; Start 08/08/16 at 13:30 Vasopressin 60 unit/Dextrose 60 ml @ 1.2 mls/hr Q12H IV Last administered on 05:35; Admin Dose 2.4 MLS/HR; Start 08/08/16 at 15:30 Norepinephrine/ Dextrose (Levophed/D5W) 250 ml @ 0.46 mls/hr TITRATE IV Last administered on 08/08/16 21:52; Admin Dose 9.37 MLS/HR; Start 08/08/16 at 18:00 GIOVANNI RODRIGUEZ Aug 09, 2016 11:53
[2016-08-09] MEDS ORDERED: ONDANSETRON 4 MG INJ IV PRN (12:00)
--- NOTE | 2016-08-09 12:49 | CONS ---
Date/Time of Note Date/Time of Note DATE: 08/09/16 TIME: 12:47 Assessment/Plan Assessment/Plan Additional Assessment/Plan Left-sided weakness concerning for CVA VT/Torsades-Cardiac arrest Respiratory failure Acute decompensated systolic congestive heart failure Cardiomyopathy with ejection fraction 35% Paroxysmal atrial fibrillation with rapid ventricular rates Diabetes Mildly elevated troponin Acute kidney injury -Family has decided for DNR and withdrawal of care. Consultation Date/Type/Reason Admit Date/Time Aug 03, 2016 at 04:29 Initial Consult Date 08/04/16 Type of Consultation: cv Referring Provider: JEREMIAH ACEVEDO MD 24 HR Interval Summary Free Text/Dictation Patient with recurrent cardiac arrest this morning and resuscitated. Family decided to withdraw care Exam/Review of Systems Vital Signs Vitals Vital Signs Date Time Temp Pulse Resp B/P Pulse Ox O2 Delivery O2 Flow Rate FiO2 08/09/16 11:30 49 14 85 100 08/09/16 11:15 50/40 08/09/16 11:00 Mechanical Ventilator 08/09/16 08:00 97.2 Intake and Output 08/08/16 08/08/16 08/09/16 15:00 23:00 07:00 Intake Total 926.07 ml 1474.53 ml 608.38 ml Output Total 5 ml 80 ml 100 ml Balance 921.07 ml 1394.53 ml 508.38 ml Exam Sedated and intubated, no apparent distress Head: normocephalic ENMT: intubated Respiratory: other (Coarse breath sounds bilaterally, no wheezing) Cardiovascular: irregular rhythm, other (S1-S2 heard) Gastrointestinal: bowel sounds (Decreased), non-tender (No grimacing), soft Extremities: edema Results Result Diagram: 08/09/16 0630 08/09/16 0630 Results 24 hrs Laboratory Tests Test 08/08/16 13:56 08/08/16 17:36 08/08/16 21:05 08/08/16 21:35 Bedside Glucose 161 172 195 Alanine Aminotransferase (ALT/SGPT) 22 Albumin 2.5 L Albumin/Globulin Ratio 0.73 Alkaline Phosphatase 153 H Anion Gap 19 H Aspartate Amino Transf (AST/SGOT) 27 Blood Urea Nitrogen 49 H Calcium Level 8.2 L Carbon Dioxide Level 16 L Chloride Level 116 H Creatinine 2.75 H Direct Bilirubin 0.00 Globulin 3.40 H Glucose Level 215 Indirect Bilirubin 0.2 Magnesium Level 2.1 Phosphorus Level 3.5 Potassium Level 5.9 #H Sodium Level 145 H Total Bilirubin 0.2 Total Protein 5.9 L Test 08/09/16 01:39 08/09/16 05:50 08/09/16 05:57 08/09/16 06:30 Bedside Glucose 139 175 Anion Gap 21 H 26 H Basophils # 0.0 Basophils % 0.0 Blood Morphology Comment Blood Urea Nitrogen 51 H 51 H Calcium Level 8.7 10.3 H Carbon Dioxide Level 16 L 17 L Chloride Level 115 H 113 H Creatinine 3.04 H 3.35 H Eosinophils # 0.0 Eosinophils % 0.2 Glucose Level 196 244 H Hematocrit 37.3 # 40.3 Hemoglobin 12.2 # 13.1 Lymphocytes # 0.9 4.3 H Lymphocytes % 4.5 L 17.0 Mean Corpuscular Hemoglobin 29.3 29.3 Mean Corpuscular Hemoglobin Concent 32.9 32.4 Mean Corpuscular Volume 89.2 90.3 Mean Platelet Volume 10.7 H 11.0 H Monocytes # 1.1 H 1.3 H Monocytes % 5.5 5.0 Neutrophils # 18.4 H 18.0 H Neutrophils % 89.8 H 71.0 Nucleated Red Blood Cells # 0.0 Nucleated Red Blood Cells % 0.0 0.0 Platelet Count 205 # 210 Potassium Level 6.5 *H 6.2 *H Red Blood Count 4.18 #L 4.47 Red Cell Distribution Width 18.1 H 18.4 H Sodium Level 145 H 150 H White Blood Count 20.5 #H 25.3 #H Activated Partial Thromboplast Time 46.0 H Alanine Aminotransferase (ALT/SGPT) 25 Albumin 2.5 L Albumin/Globulin Ratio 0.78 Alkaline Phosphatase 213 H Aspartate Amino Transf (AST/SGOT) 43 Direct Bilirubin 0.00 Globulin 3.20 INR International Normalized Ratio 1.43 Indirect Bilirubin 0.1 Magnesium Level 2.4 Phosphorus Level 6.3 #H Prothrombin Time 17.5 H Prothrombin Time Ratio 1.4 Total Bilirubin 0.1 L Total Protein 5.7 L Test 08/09/16 08:33 Bedside Glucose 121 Medications Medications Current Medications Acetaminophen 650 mg 650 mg Q6H PRN NGT PAIN AND OR ELEVATED TEMP Last administered on 08/06/16t 16:22; Admin Dose 650 MG; Start 08/03/16 at 22:00 Phenylephrine HCl 80 mg/Dextrose 250 ml @ 18.75 mls/ hr TITRATE IV ; Start 06/12 at 12:00 Vasopressin 60 unit/Dextrose 60 ml @ 1.2 mls/hr Q12H IV Last administered on 05:35; Admin Dose 2.4 MLS/HR; Start 08/08/16 at 15:30 Norepinephrine/ Dextrose (Levophed/D5W) 250 ml @ 0.46 mls/hr TITRATE IV Last administered on 08/08/16 21:52; Admin Dose 9.37 MLS/HR; Start 08/08/16 at 18:00 Miguel Quiroga DO Aug 09, 2016 12:49
[2016-08-09 13:18] LABS: LYMPHOCYTES # 2.1 10^3/ul (0.8-2.9); MONOCYTE # 0.4 10^3/ul (0.3-0.9); NEUTROPHIL # 17.4 10^3/ul (1.6-7.5)
--- NOTE | 2016-08-09 13:42 | CONS ---
Date/Time of Note Date/Time of Note DATE: 08/09/16 TIME: 13:41 Assessment/Plan Assessment/Plan Additional Assessment/Plan 1. Acute kidney injury versus acute kidney injury on chronic kidney disease secondary to cardiorenal syndrome. 2. Acute congestive heart failure exacerbation with pulmonary edema. 3. Acute Non-ST elevation myocardial infarction. s/p Cardiac arrest 4. Acute hypoxemic respiratory failure, currently intubated secondary to acute pulmonary edema. 12. Systemic inflammatory response syndrome versus sepsis from probable underlying pneumonia. 13. Acute encephalopathy, multifactorial. PLAN: family decided comfort care will sign off, call us if any questions Consultation Date/Type/Reason Admit Date/Time Aug 03, 2016 at 04:29 Initial Consult Date 08/03/16 Type of Consultation: cv Referring Provider: JEREMIAH ACEVEDO MD Exam/Review of Systems Vital Signs Vitals Vital Signs Date Time Temp Pulse Resp B/P Pulse Ox O2 Delivery O2 Flow Rate FiO2 08/09/16 12:55 61 08/09/16 11:30 14 85 100 08/09/16 11:15 50/40 08/09/16 11:00 Mechanical Ventilator 08/09/16 08:00 97.2 Intake and Output 08/08/16 08/08/16 08/09/16 15:00 23:00 07:00 Intake Total 926.07 ml 1474.53 ml 608.38 ml Output Total 5 ml 80 ml 100 ml Balance 921.07 ml 1394.53 ml 508.38 ml Exam Sedated and intubated ENMT: intubated Respiratory: Coarse breath sounds bilaterally with scattered crackles, no wheezing Cardiovascular: irregular rhythm, other (S1-S2 heard), systolic murmur Gastrointestinal: bowel sounds, non-tender, other (No grimacing with palpation) , soft Extremities: edema Results Result Diagram: 08/09/16 0630 08/09/16 0630 Results 24 hrs Laboratory Tests Test 08/08/16 13:56 08/08/16 17:36 08/08/16 21:05 08/08/16 21:35 Bedside Glucose 161 172 195 Alanine Aminotransferase (ALT/SGPT) 22 Albumin 2.5 L Albumin/Globulin Ratio 0.73 Alkaline Phosphatase 153 H Anion Gap 19 H Aspartate Amino Transf (AST/SGOT) 27 Blood Urea Nitrogen 49 H Calcium Level 8.2 L Carbon Dioxide Level 16 L Chloride Level 116 H Creatinine 2.75 H Direct Bilirubin 0.00 Globulin 3.40 H Glucose Level 215 Indirect Bilirubin 0.2 Magnesium Level 2.1 Phosphorus Level 3.5 Potassium Level 5.9 #H Sodium Level 145 H Total Bilirubin 0.2 Total Protein 5.9 L Test 08/09/16 01:39 08/09/16 05:50 08/09/16 05:57 08/09/16 06:30 Bedside Glucose 139 175 Anion Gap 21 H 26 H Band Neutrophils % 3.0 Basophils # Basophils % Blood Morphology Comment Blood Urea Nitrogen 51 H 51 H Calcium Level 8.7 10.3 H Carbon Dioxide Level 16 L 17 L Chloride Level 115 H 113 H Creatinine 3.04 H 3.35 H Differential Comment MANUAL DIFF Eosinophils # Eosinophils % Glucose Level 196 244 H Hematocrit 37.3 # 40.3 Hemoglobin 12.2 # 13.1 Lymphocytes # 2.1 4.3 H Lymphocytes % 10.0 L 17.0 Mean Corpuscular Hemoglobin 29.3 29.3 Mean Corpuscular Hemoglobin Concent 32.9 32.4 Mean Corpuscular Volume 89.2 90.3 Mean Platelet Volume 10.7 H 11.0 H Monocytes # 0.4 1.3 H Monocytes % 2.0 5.0 Neutrophils # 17.4 H 18.0 H Neutrophils % 85.0 H 71.0 Nucleated Red Blood Cells # Nucleated Red Blood Cells % 0.0 Platelet Count 205 # 210 Potassium Level 6.5 *H 6.2 *H Red Blood Count 4.18 #L 4.47 Red Cell Distribution Width 18.1 H 18.4 H Sodium Level 145 H 150 H White Blood Count 20.5 #H 25.3 #H Activated Partial Thromboplast Time 46.0 H Alanine Aminotransferase (ALT/SGPT) 25 Albumin 2.5 L Albumin/Globulin Ratio 0.78 Alkaline Phosphatase 213 H Aspartate Amino Transf (AST/SGOT) 43 Direct Bilirubin 0.00 Globulin 3.20 INR International Normalized Ratio 1.43 Indirect Bilirubin 0.1 Magnesium Level 2.4 Phosphorus Level 6.3 #H Prothrombin Time 17.5 H Prothrombin Time Ratio 1.4 Total Bilirubin 0.1 L Total Protein 5.7 L Test 08/09/16 08:33 Bedside Glucose 121 Medications Medications Current Medications Acetaminophen 650 mg 650 mg Q6H PRN NGT PAIN AND OR ELEVATED TEMP Last administered on 08/06/16 16:22; Admin Dose 650 MG; Start 08/03/16 at 22:00 Phenylephrine HCl 80 mg/Dextrose 250 ml @ 18.75 mls/ hr TITRATE IV ; Start 06/12 at 12:00 Vasopressin 60 unit/Dextrose 60 ml @ 1.2 mls/hr Q12H IV Last administered on 05:35; Admin Dose 2.4 MLS/HR; Start 08/08/16 at 15:30 Norepinephrine/ Dextrose (Levophed/D5W) 250 ml @ 0.46 mls/hr TITRATE IV Last administered on 08/08/16 21:52; Admin Dose 9.37 MLS/HR; Start 08/08/16 at 18:00 CARYN GALVEZ MD Aug 09, 2016 13:42
--- NOTE | 2016-08-09 14:56 | PN ---
DATE: 08/09/2016 PALLIATIVE CARE PROGRESS NOTE AND FAMILY CONFERENCE Family conference was done with patient's children and extended family members reviewed the patient' s current clinical condition and the fact that she is dying. Blood pressures in the 50s and pulse i s in the 50s. She is on 2 pressors at this time. She already has been changed to do not resuscitat e. I have explained to family members that irrespective of what we do today, she will . Underst andably, they have decided to make a decision to discontinue his current level of care and just allo w her compassionate end of life without being on a ventilator. We will do a compassionate extubatio n. Dictated By: SABRA PAZ MD, LP/SUHAIL Conf#: [id number] DID#: [id number]
[2016-08-09] MEDS ORDERED: morphine (DRIP) 100 MG/D5W 100 ML IV PRN (19:00)
--- NOTE | 2016-08-09 21:39 | SP ---
DATE OF PROCEDURE: 08/08/2016 INDICATION: A 75-year-old with severe unresponsiveness, status post cardiopulmonary arrest, off sed ation. DESCRIPTION OF PROCEDURE: EEG was recorded digitally. [id number] and [id number]-[id number] montages wer e recorded and reviewed. All impedances were measured and recorded. Cap electrodes were placed in accordance with International 10-20 system of electrode placement. Electrocerebral silence was seen throughout the recording with only artifacts of cardiac pulse were seen. No epileptiform transients were seen. No signs of ongoing electrographic seizures. IMPRESSION: Abnormal study secondary to electrocerebral silence. Prior to EEG, the patient was not brain clinically because she was overbreathing the ventilator. EEG data should be taken in co ntext of clinical presentation, though again EEG shows absence of electrical cerebral activity. Dictated By: ERIK MOORE MD YV/NTS Conf#: [id number] DID#: [id number] CC: AVIS MENDEZ MD;*EndCC*
--- NOTE | 2016-08-10 09:22 | DES ---
Date/Time of Note Date/Time of Note DATE: 08/10/16 TIME: 09:10 Discharge/ Summary Admission/Discharge Info Admit Date/Time Aug 03, 2016 at 04:29 Discharge Date/Time Aug 09, 2016 at 20:01 Final Diagnosis 1. Acute hypoxemic resp failure - intubated 2. Severe acute CHF with pulmonary edema - signs of shock cardiogenic 3. NSTEMI - 2/2 to cardiac arrest 4. Acute renal insufficiency - Acute kidney injury versus acute kidney injury on chronic kidney disease secondary to cardiorenal syndrome. 5. Anion gap metabolic acidosis 6. DM 2: uncontrolled 7. SIRS vs Sepsis from probable underlying Pneumonia - aspiration 8. Acute Encephalopathy 9. HTN essential 10. Anemia 11. afib with RVR Preliminary Cause of 1. respiratory distress secondary to CHF and cardiac arrest (days) 2. cardiac arrest (days) 3. CHF (years) Hospital Course 75-year-old female who was found down at home approximately a few hours since last seen before admission. At that time she was brought into emergency room initially diagnosed as a code stroke, although she decompensated in the emergency room, required intubation for pulmonary edema and acute respiratory failure. She was placed in the intensive care unit. She was intubated, found with acute hypoxic respiratory failure, with a low ejection fraction and pulmonary edema, non ST-myocardial infarction, followed by cardiology, renal, pulmonary, neurology teams. She was also found with acute renal failure, being followed by Dr. Cee. She also suffered from VT/[place]-Cardiac arrest. Pt eventually went into presumably cardiogenic shock, and placed on pressor support. Palliative team met with family as well, they decided to make pt DNR, and eventually decided to make a decision to discontinue current level of care and just allow her compassionate end of life without being on a ventilator Compassionate extubation was performed on 08/09/16 and pt at 20:01 on . GIOVANNI RODRIGUEZ Aug 10, 2016 09:20
--- NOTE | 2016-08-10 14:34 | RADRPT ---
Vent Rate: 128 bpm RR Interval: 0 msec CO Interval: 0 msec QRS Duration: 132 msec QT Interval: 298 msec QTC Interval: 435 msec P-R-T [place]: 0 - 9 - 156 degrees Atrial fibrillation with rapid ventricular response Left bundle branch block Abnormal ECG Electronically Signed By: Miguel Quiroga [id number]
--- NOTE | 2016-08-10 14:36 | RADRPT ---
Vent Rate: 86 bpm RR Interval: 0 msec [place] Interval: 0 msec QRS Duration: 176 msec QT Interval: 364 msec QTC Interval: 435 msec P-R-T [place]: 0 - -37 - 130 degrees Atrial fibrillation Left axis deviation Nonspecific intraventricular block Abnormal ECG Electronically Signed By: Miguel Quiroga [id number]
== END 2016-08-09 20:01 | disposition expired | DRG 870 ==
LOC: E/R 02:00 → ICU 04:29
PROVIDERS: ADMIT Family Medicine; ATTEND Family Medicine
PROC: 5A1955Z Respiratory Ventilation, Greater than 96 Consecutive Hours (ICD-10-PCS; principal; 2016-08-03)
PROC: 0BH17EZ Insertion of Endotracheal Airway into Trachea, Via Natural or Artificial Opening (ICD-10-PCS; 2016-08-03)
PROC: 02HV33Z Insertion of Infusion Device into Superior Vena Cava, Percutaneous Approach (ICD-10-PCS; 2016-08-03)
PROC: 30233N1 Transfusion of Nonautologous Red Blood Cells into Peripheral Vein, Percutaneous Approach (ICD-10-PCS; 2016-08-08)
DX: A41.9 Sepsis, unspecified organism (principal); I63.9 Cerebral infarction, unspecified; I21.4 Non-ST elevation (NSTEMI) myocardial infarction; J96.01 Acute respiratory failure with hypoxia; N17.0 Acute kidney failure with tubular necrosis; J69.0 Pneumonitis due to inhalation of food and vomit; R65.21 Severe sepsis with septic shock; R57.0 Cardiogenic shock; G92 Toxic encephalopathy; E11.65 Type 2 diabetes mellitus with hyperglycemia; D62 Acute posthemorrhagic anemia; I50.23 Acute on chronic systolic (congestive) heart failure; R40.20 Unspecified coma; I13.0 Hypertensive heart and chronic kidney disease with heart failure and stage 1 through stage 4 chronic kidney disease, or unspecified chronic kidney disease; G81.04 Flaccid hemiplegia affecting left nondominant side; G93.1 Anoxic brain damage, not elsewhere classified; R47.81 Slurred speech; N18.9 Chronic kidney disease, unspecified; E03.9 Hypothyroidism, unspecified; I46.9 Cardiac arrest, cause unspecified; I49.01 Ventricular fibrillation; I45.81 Long QT syndrome
CPT/HCPCS: 31500; 36415; 36430; 36569; 36600; 70450; 71010; 74000; 76775; 76937; 80048; 80053; 80061; 80076; 80307; 81001; 81003; 82550; 82553; 82803; 82962; 83036; 83605; 83735; 83880; 84100; 84155; 84300; 84443; 84484; 84560; 85025; 85610; 85730; 86850; 86900; 86901; 86920; 87040; 87070; 87075; 87081; 87086; 87400; 89190; 92950; 93005; 93306; 94002; 94003; 94770; 95819; 96365; 96366; 96368; 96372; 96375; 96376; J1940; J2001; C1769; J0171; J0282; J0330; J1265; J1644; J1815; J2270; J2543; J2765; J3010; J3475; J3480; J7030; J7040; J7070; P9016